=== PATIENT | male | born 1995 | race Hispanic/Latino ===

== ENCOUNTER 2019-09-02 12:41 | Emergency (ER) | payer BC ==
[2019-09-02] MEDS ORDERED: HYDROCODONE/APAP 7.5/325 MG TAB ONE (13:31)
--- NOTE | 2019-09-02 15:44 | RAD REPORT ---
EXAM DESCRIPTION: RAD - Ribs Right - 09/02/2019 1:56 pm CLINICAL HISTORY: PAIN COMPARISON: Chest Single View dated 06/24/2016 FINDINGS: No displaced rib fracture is seen. No aggressive rib lesion.
--- NOTE | 2019-09-02 16:28 | EDPHYS ---
Physician Documentation [facility] Name: Joaquin Bustos II Age: 23 yrs Sex: Male : 1995 Arrival Date: 09/02/2019 Time: 12:42 Bed 18 Private MD: ED Physician Matt Multani HPI: 09/02 16:29 This 23 yrs old Male presents to ER via Ambulatory with complaints of Fall ps1 Injury - rib pain. 16:29 patient states that he felt a pop in the right rib and then had an accident in which he ps1 fell and hit his ribs on the right hand side. Pain rated as severe. No obvious signs of injury. Worse with palpation and deep breathing. . Historical: - Allergies: 12:56 Cinnamon; aj1 - Home Meds: 12:56 risperidone oral oral [Active]; escitalopram oxalate oral oral [Active]; aj1 - PMHx: 12:56 Bipolar disorder; Schizophrenia; Anxiety; aj1 - Immunization history:: Flu vaccine is not up to date. - Social history:: Smoking status: Patient/guardian denies using tobacco. - Ebola Screening: : Patient denies travel to an Ebola-affected area in the 21 days before illness onset. ROS: 16:29 Constitutional: Negative for fever, chills, and weight loss, Eyes: Negative for injury, ps1 pain, redness, and discharge, Cardiovascular: Negative for chest pain, palpitations, and edema, Respiratory: Negative for shortness of breath, cough, wheezing, and pleuritic chest pain, Abdomen/GI: Negative for abdominal pain, nausea, vomiting, diarrhea, and constipation, Skin: Negative for injury, rash, and discoloration. 16:29 MS/extremity: Positive for pain, tenderness, of the right lateral anterior chest. Exam: 16:29 Constitutional: This is a well developed, well nourished patient who is awake, alert, ps1 and in no acute distress. Head/Face: Normocephalic, atraumatic. Eyes: Pupils equal round and reactive to light, extra-ocular motions intact. Lids and lashes normal. Conjunctiva and sclera are non-icteric and not injected. Cardiovascular: Regular rate and rhythm. No gallops, murmurs, or rubs. Normal PMI, no JVD. No pulse deficits. Respiratory: Lungs have equal breath sounds bilaterally, clear to auscultation and percussion. No rales, rhonchi or wheezes noted. No increased work of breathing, no retractions or nasal flaring. Abdomen/GI: Soft, non-tender, with normal bowel sounds. No distension or tympany. No guarding or rebound. No evidence of tenderness throughout. Skin: Warm, dry with normal turgor. Normal color with no rashes, no lesions, and no evidence of cellulitis. 16:29 Chest/axilla: Inspection: normal, Palpation: tenderness, that is moderate, of the right lateral anterior chest. Vital Signs: 12:56 BP 142 / 87; Pulse 85; Resp 18; Temp 98.0; Pulse Ox 97% on R/A; Height 5 ft. 11 in. aj1 (180.34 cm) (R); Pain 9/10; 14:30 BP 138 / 78; Pulse 79; Resp 15; Pulse Ox 98% on R/A; em 16:51 BP 148 / 84; Pulse 81; Resp 16; Pulse Ox 97% on R/A; em MDM: 13:26 Patient medically screened. ps1 16:39 Data reviewed: vital signs, nurses notes, radiologic studies. Counseling: I had a ps1 detailed discussion with the patient and/or guardian regarding: the historical points, exam findings, and any diagnostic results supporting the discharge/admit diagnosis, radiology results, the need for outpatient follow up, to return to the emergency department if symptoms worsen or persist or if there are any questions or concerns that arise at home. 09/02 13:27 Order name: Ribs Right XRAY; Complete Time: 16:26 ps1 Administered Medications: 13:32 Drug: [place] (7.5 mg-325 mg) 1 tabs Route: PO; em 14:30 Follow up: Response: No adverse reaction; Pain is unchanged, physician notified em Disposition: 09/02/19 16:27 Discharged to Home. Impression: Right rib pain. - Condition is Stable. - Discharge Instructions: Rib Contusion. - Prescriptions for Anaprox DS 550 mg Oral Tablet - take 1 tablet by ORAL route every 12 hours As needed; 20 tablet. Robaxin 500 mg Oral Tablet - take 2 tablet by ORAL route every 6 hours As needed; 40 tablet. Tylenol- Codeine #3 300-30 mg Oral Tablet - take 2 tablet by ORAL route every 6 hours As needed; 30 tablet. - Medication Reconciliation Form, Thank You Letter, Antibiotic Education, Prescription Opioid Use form. - Follow up: Private Physician; When: As needed; Reason: Further diagnostic work-up, Recheck today's complaints, Continuance of care, Re-evaluation by your physician. Follow up: Emergency Department; When: As needed; Reason: Fever > 102 F, Trouble breathing, Worsening of condition. - Problem is new. - Symptoms are unchanged. Signatures: Dispatcher [employer] Theresa Jacobo RN RN aj1 Jarod Bone, HEAD BANQUET WAITRESS HEAD BANQUET WAITRESS em Matt Multani MD MD ps1 Corrections: (The following items were deleted from the chart) 16:54 16:27 09/02/2019 16:27 Discharged to Home. Impression: Right rib pain. Condition is em Stable. Forms are Medication Reconciliation Form, Thank You Letter, Antibiotic Education, Prescription Opioid Use. Follow up: Private Physician; When: As needed; Reason: Further diagnostic work-up, Recheck today's complaints, Continuance of care, Re-evaluation by your physician. Follow up: Emergency Department; When: As needed; Reason: Fever > 102 F, Trouble breathing, Worsening of condition. Problem is new. Symptoms are unchanged. ps1
--- NOTE | 2019-09-02 16:28 | ER ---
Nurse's Notes [facility] Name: Joaquin Bustos II Age: 23 yrs Sex: Male : 1995 Arrival Date: 09/02/2019 Time: 12:42 Bed 18 Private MD: Diagnosis: Right rib pain Presentation: 09/02 12:52 Presenting complaint: Patient states: "I was doing my normal routines, and I reach for aj1 something and I heard a pop in my side, not normal, last night I was tossing and turning because I was in pain. I don't know what that pop was but it sure does hurt" Patient reports pain to right side. Transition of care: patient was not received from another setting of care. Onset of symptoms was August 2019. Risk Assessment: Do you want to hurt yourself or someone else? Patient reports no desire to harm self or others. Initial Sepsis Screen: Does the patient meet any 2 criteria? No. Patient's initial sepsis screen is negative. Does the patient have a suspected source of infection? No. Patient's initial sepsis screen is negative. Care prior to arrival: None. 12:52 Method Of Arrival: Ambulatory aj 12:52 Acuity: KHADAR 4 aj1 Triage Assessment: 12:56 General: Appears in no apparent distress. uncomfortable, Behavior is cooperative, aj1 anxious. Pain: Pain currently is 9 out of 10 on a pain scale. Neuro: Level of Consciousness is awake, alert, obeys commands. Cardiovascular: Patient's skin is warm and dry. Respiratory: Airway is patent Respiratory effort is even, unlabored, Respiratory pattern is regular, symmetrical. Historical: - Allergies: 12:56 Cinnamon; aj1 - Home Meds: 12:56 risperidone oral oral [Active]; escitalopram oxalate oral oral [Active]; aj1 - PMHx: 12:56 Bipolar disorder; Schizophrenia; Anxiety; aj1 - Immunization history:: Flu vaccine is not up to date. - Social history:: Smoking status: Patient/guardian denies using tobacco. - Ebola Screening: : Patient denies travel to an Ebola-affected area in the 21 days before illness onset. Screenin:09 Abuse screen: Denies threats or abuse. Nutritional screening: No deficits noted. em Tuberculosis screening: No symptoms or risk factors identified. Fall Risk None identified. Assessment: 13:21 General: Appears in no apparent distress. uncomfortable, Behavior is calm, cooperative, em Denies fever. Pain: Complains of pain in right lateral anterior chest Pain currently is 9 out of 10 on a pain scale. Pain began 1 day ago. Neuro: Level of Consciousness is awake, alert, obeys commands, Oriented to person, place, time, situation, Appropriate for age. Cardiovascular: Capillary refill < 3 seconds Patient's skin is warm and dry. Respiratory: Reports pain with movement pain with respiration Airway is patent Respiratory effort is even, unlabored, Respiratory pattern is regular, symmetrical, Breath sounds are clear bilaterally. Derm: Skin is intact, is healthy with good turgor, Skin is pink, warm \\T\\ dry. Musculoskeletal: Capillary refill < 3 seconds, Range of motion: intact in all extremities. 13:30 Reassessment: I agree with previous assessment. hb 14:30 Reassessment: Patient appears in no apparent distress at this time. Patient and/or em family updated on plan of care and expected duration. Pain level reassessed. Patient is alert, oriented x 3, equal unlabored respirations, skin warm/dry/pink. reports pain is unchanged, provider notified. 15:30 Reassessment: Patient appears in no apparent distress at this time. Patient and/or em family updated on plan of care and expected duration. Pain level reassessed. Patient is alert, oriented x 3, equal unlabored respirations, skin warm/dry/pink. pending x-ray results, reports pain is unchanged, provider notified. 16:50 Reassessment: Patient appears in no apparent distress at this time. Patient and/or em family updated on plan of care and expected duration. Pain level reassessed. Patient is alert, oriented x 3, equal unlabored respirations, skin warm/dry/pink. Vital Signs: 12:56 BP 142 / 87; Pulse 85; Resp 18; Temp 98.0; Pulse Ox 97% on R/A; Height 5 ft. 11 in. aj1 (180.34 cm) (R); Pain 9/10; 14:30 BP 138 / 78; Pulse 79; Resp 15; Pulse Ox 98% on R/A; em 16:51 BP 148 / 84; Pulse 81; Resp 16; Pulse Ox 97% on R/A; em ED Course: 12:42 Patient arrived in ED. as 12:54 Triage completed. aj1 12:56 Arm band placed on Patient placed in an exam room. aj1 12:58 Matt Multani MD is Attending Physician. ps1 13:05 Jarod Bone LVN is Primary Nurse. em 13:09 Patient has correct armband on for positive identification. Placed in gown. Bed in low em position. Call light in reach. Pulse ox on. NIBP on. 13:54 Ribs Right XRAY In Process Unspecified. EDMS 16:51 No provider procedures requiring assistance completed. Patient did not have IV access em during this emergency room visit. Administered Medications: 13:32 Drug: [place] (7.5 mg-325 mg) 1 tabs Route: PO; em 14:30 Follow up: Response: No adverse reaction; Pain is unchanged, physician notified em Outcome: 16:27 Discharge ordered by . ps1 16:51 Discharged to home ambulatory, with family. em 16:51 Condition: good 16:51 Discharge instructions given to patient, family, Instructed on discharge instructions, follow up and referral plans. no drinking with medication, no driving heavy equipment, medication usage, Demonstrated understanding of instructions, follow-up care, medications, Prescriptions given X 3. 16:54 Patient left the ED. em Signatures: Dispatcher [employer] Theresa Jacobo RN RN aj1 Jarod Bone LVN LVN em Mima Bhardwaj Heather, RN RN Matt Multani MD MD ps1
[2019-09-02 17:26] VITALS: BP 148/84; O2SAT 97
[2019-09-03 21:25] VITALS: TEMP 98
== END 2019-09-02 16:54 | disposition home or self-care (01) ==
LOC: ER 12:41
DX: R07.81 Pleurodynia (principal); Z91.018 Allergy to other foods; F41.9 Anxiety disorder, unspecified
CPT/HCPCS: 99284

== ENCOUNTER 2020-03-10 06:09 | Emergency (ER) | payer BC ==
[2020-03-10] MEDS ORDERED: KETOROLAC 30 MG/ML INJ ONE (06:42)
[2020-03-10] MEDS ORDERED: NA CHLORIDE 0.9% 1,000 ML ONE (06:42)
[2020-03-10] MEDS ORDERED: DIPHENHYDRAMINE 50 MG/ML VIAL ONE (06:42)
[2020-03-10] MEDS ORDERED: PROMETHAZINE INJ 25 MG/ML AMP ONE (06:42)
[2020-03-10 07:16] LABS: Absolute Lymphocytes (CBC) 2.4 K/uL (0.7-4.9); Basophils % 1.1 % (0-1.3); Hematocrit 42.6 % (39.6-49.0); Lymphocytes % 28.7 % (15.3-44.8); MPV 9.6 fL (7.6-11.3); RBC Red Blood Cell Count 4.99 M/uL (4.33-5.43)
[2020-03-10 07:24] LABS: BUN Blood Urea Nitrogen 11 mg/dL (7-18); Bicarbonate 26 mmol/L (21-32); Glucose Level 110 mg/dL (74-106); Potassium 3.9 mmol/L (3.5-5.1); Sodium Level 140 mmol/L (136-145)
--- NOTE | 2020-03-10 12:37 | ER ---
Nurse's Notes [facility] Name: Joaquin Bustos II Age: 24 yrs Sex: Male : 1995 Arrival Date: 03/10/2020 Time: 06:12 Bed 5 Private MD: Diagnosis: Headache;Nausea and vomiting Presentation: 03/10 06:21 Chief complaint: Patient states: HEADACHE LIKE PRESSURE STARTED YESTERDAY. 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 10/10 PAIN SCALE. I HAVE BEEN VOMITING ALL NIGHT. I AM SENSITIVE TO NOISE. 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 ALSO I HAVE BEEN HAVING CHEST PAIN FOR THE PAST WEEK. POINTING TO HIS LEFT ANT CHEST WALL, DESCRIBED SHARP, NON RADIATING, 9/10 PAIN SCALE. Coronavirus screen: Proceed with normal triage. Ebola Screen: No symptoms or risks identified at this time. Initial Sepsis Screen: Does the patient meet any 2 criteria? No. Patient's initial sepsis screen is negative. Does the patient have a suspected source of infection? No. Patient's initial sepsis screen is negative. Risk Assessment: Do you want to hurt yourself or someone else? Patient reports no desire to harm self or others. Onset of symptoms was March 09, 2020 at 13:00. 06:21 Method Of Arrival: Ambulatory rv 06:21 Acuity: KHADAR 3 rv Triage Assessment: 06:25 General: Appears uncomfortable, Behavior is calm, cooperative. Pain: Complains of pain rv in HEAD Pain does not radiate. Pain currently is 10 out of 10 on a pain scale. Quality of pain is described as pressure, Pain began 1 day ago. Pain: Complains of pain in anterior aspect of left upper chest Pain does not radiate. Pain currently is 9 out of 10 on a pain scale. Quality of pain is described as sharp, Pain began ONE WEEK AGO. EENT: No signs and/or symptoms were reported regarding the EENT system. Neuro: Level of Consciousness is awake, alert, obeys commands, Oriented to person, place, time, situation, Moves all extremities. Full function Speech is normal, Facial symmetry appears normal, Reports headache that is the "worst ever", since YESTERDAY. Cardiovascular: Patient's skin is warm and dry. Respiratory: Airway is patent Respiratory effort is even, unlabored, Respiratory pattern is regular, Breath sounds are clear bilaterally. GI: Reports nausea, vomiting, since LAST NIGHT. Derm: Skin is healthy with good turgor. Historical: - Allergies: 06:25 Cinnamon; rv - PMHx: 06:25 Anxiety; Bipolar disorder; Schizophrenia; rv - PSHx: 06:25 Cholecystectomy; rv - Immunization history:: Adult Immunizations up to date. - Social history:: Smoking status: Patient denies any tobacco usage or history of. Screenin:23 Abuse screen: Denies threats or abuse. Nutritional screening: No deficits noted. jb4 Tuberculosis screening: No symptoms or risk factors identified. Fall Risk None identified. Assessment: 06:23 General: Appears in no apparent distress. uncomfortable, Behavior is calm, cooperative, jb4 appropriate for age. Pain: Complains of pain in anterior aspect of left upper chest, Headache Pain does not radiate. Pain currently is 10 out of 10 on a pain scale. Quality of pain is described as Headache is describe as a pressure pain. Chest pain is stabbing Pain began Chest pain started 1 week ago, headache started yesterday. Is continuous. Neuro: Level of Consciousness is awake, alert, obeys commands, Oriented to person, place, time, situation. Cardiovascular: Patient's skin is warm and dry. Respiratory: Airway is patent Respiratory effort is even, unlabored, Respiratory pattern is regular, symmetrical, Breath sounds are clear bilaterally. GI: Abdomen is non-distended, obese, Bowel sounds present X 4 quads. Abd is soft and non tender X 4 quads. Reports nausea, vomiting, since 0030. : No signs and/or symptoms were reported regarding the genitourinary system. EENT: No signs and/or symptoms were reported regarding the EENT system. Derm: Skin is intact, Skin is pink, warm \\T\\ dry. Musculoskeletal: Circulation, motion, and sensation intact. Range of motion: intact in all extremities. 07:00 Reassessment: RECD REPORT FROM OBDULIA DIAZ. 24YO HM P/W MIGRAINE PATTERN ZHAO. ALL CURRENT bp ORDERS COMPLETE, RESULTS PENDING. 08:23 Reassessment: PT SLEEPING, S/S RELIEVED. bp 10:44 Reassessment: PT SOMNOLENT, STATES NO AVAILABLE RIDE HOME. PROVIDER AWARE. bp 11:59 Reassessment: PT SLEEPING. S/S RELIEVED. bp 12:36 Reassessment: PT D/C HOME AMBULATORY, DX WITH HEADACHE, NAUSEA AND VOMITING. bp Vital Signs: 06:21 BP 136 / 89; Pulse 95; Resp 18; Temp 97.4; Pulse Ox 99% on R/A; Weight 117.03 kg; rv Height 5 ft. 11 in. (180.34 cm); Pain 10/10; 07:15 BP 134 / 91; Pulse 87; Resp 16; Pulse Ox 100% ; bp 08:23 BP 125 / 77; Pulse 75; Resp 16; Pulse Ox 96% ; bp 09:49 BP 113 / 73; Pulse 67; Resp 17; Pulse Ox 96% ; jl7 10:44 BP 112 / 72; Pulse 67; Resp 15; Pulse Ox 96% ; bp 11:59 BP 110 / 68; Pulse 61; Resp 16; Pulse Ox 97% ; bp 12:36 BP 132 / 57; Pulse 65; Resp 16; Temp 97.5; Pulse Ox 97% ; bp 06:21 Body Mass Index 35.98 (117.03 kg, 180.34 cm) rv ED Course: 06:12 Patient arrived in ED. cl3 06:16 Roberto Valiente, RN is Primary Nurse. jb4 06:23 Patient has correct armband on for positive identification. Bed in low position. Call jb4 light in reach. Side rails up X 1. Pulse ox on. NIBP on. 06:25 Triage completed. rv 06:27 Patient placed in the treatment room, on a stretcher, Patient notified of wait time. rv 06:28 Peyton Sherwood FNP-C is [facility]. snw 06:28 Srinivasa Hidalgo MD is Attending Physician. snw 07:05 Inserted saline lock: 20 gauge in right hand, using aseptic technique. bp 12:37 No provider procedures requiring assistance completed. IV discontinued, intact, bp bleeding controlled, No redness/swelling at site. Pressure dressing applied. Administered Medications: 07:05 Drug: NS 0.9% 1000 ml Route: IV; Rate: 1 bolus; Site: right hand; bp 12:38 Follow up: IV Status: Completed infusion; IV Intake: 1000ml bp 07:05 Drug: Phenergan 12.5 mg Route: IVP; Site: right hand; bp 12:38 Follow up: Response: Marked relief of symptoms bp 07:05 Drug: TORadol 30 mg Route: IVP; Site: right hand; bp 12:38 Follow up: Response: Marked relief of symptoms bp 07:05 Drug: Benadryl 12.5 mg Route: IVP; Site: right hand; bp 12:37 Follow up: Response: Marked relief of symptoms bp Intake: 12:38 IV: 1000ml; Total: 1000ml. bp Outcome: 12:35 Discharge ordered by . snw 12:37 Discharged to home ambulatory. bp 12:37 Condition: stable 12:37 Discharge instructions given to patient, Instructed on discharge instructions, follow up and referral plans. medication usage, Demonstrated understanding of instructions, follow-up care, medications, Prescriptions given X 2. 12:42 Patient left the ED. bp Signatures: Peyton Sherwood, SALES PERFORMANCE ANALYST-C SALES PERFORMANCE ANALYST-Csnw Roberto Valiente RN RN jb4 Shazia Delgado RN EMILY jl7 Yohan Monroy RN EMILY bp Ridge Herrera RN RN rv Kuldip Phelan cl3 Corrections: (The following items were deleted from the chart) 06:29 06:23 GI: Abdomen is non-distended, obese, Bowel sounds present X 4 quads. Abd is soft jb4 and non tender X 4 quads. jb4 12:42 12:37 Discharge instructions given to patient, Instructed on discharge instructions, bp follow up and referral plans. Demonstrated understanding of instructions, follow-up care, bp
--- NOTE | 2020-03-10 12:37 | EDPHYS ---
Physician Documentation [facility] Name: Joaquin Bustos II Age: 24 yrs Sex: Male : 1995 Arrival Date: 03/10/2020 Time: 06:12 Bed 5 Private MD: ED Physician Srinivasa Hidalgo HPI: 03/10 06:38 This 24 yrs old Male presents to ER via Ambulatory with complaints of snw Nausea/Vomiting, Headache. 06:38 The patient presents to the emergency department with nausea, vomiting. Onset: The snw symptoms/episode began/occurred gradually. Possible causes: unknown. The symptoms are aggravated by movement. Associated signs and symptoms: Pertinent negatives: abdominal pain, fever. Severity of symptoms: At their worst the symptoms were moderate in the emergency department the symptoms are unchanged. The patient has not experienced similar symptoms in the past. It is unknown whether or not the patient has recently seen a physician. pt states reproducible left chest pain. Historical: - Allergies: 06:25 Cinnamon; rv - PMHx: 06:25 Anxiety; Bipolar disorder; Schizophrenia; rv - PSHx: 06:25 Cholecystectomy; rv - Immunization history:: Adult Immunizations up to date. - Social history:: Smoking status: Patient denies any tobacco usage or history of. ROS: 06:34 Constitutional: Negative for fever, chills, and weight loss. snw 06:34 ENT: Negative for injury, pain, and discharge, Neck: Negative for injury, pain, and swelling. 06:34 Respiratory: Negative for shortness of breath, cough, wheezing, and pleuritic chest pain, Back: Negative for injury and pain. 06:34 : Negative for injury, bleeding, discharge, and swelling, MS/Extremity: Negative for injury and deformity, Skin: Negative for injury, rash, and discoloration. 06:34 Eyes: Positive for photophobia. 06:34 Cardiovascular: Positive for chest pain, of the anterior aspect of left upper chest, worse with pressure, reproducible. 06:34 Abdomen/GI: Positive for nausea and vomiting. 06:34 Neuro: Positive for headache, of the frontal, band like. 06:34 Psych: Positive for psychiatrist has requested pt get an EKG. Exam: 06:34 Constitutional: This is a well developed, well nourished patient who is awake, alert, snw and in no acute distress. Head/Face: Normocephalic, atraumatic. Eyes: Pupils equal round and reactive to light, extra-ocular motions intact. Lids and lashes normal. Conjunctiva and sclera are non-icteric and not injected. Cornea within normal limits. Periorbital areas with no swelling, redness, or edema. ENT: Nares patent. No nasal discharge, no septal abnormalities noted. Tympanic membranes are normal and external auditory canals are clear. Oropharynx with no redness, swelling, or masses, exudates, or evidence of obstruction, uvula midline. Mucous membranes moist. Neck: Trachea midline, no thyromegaly or masses palpated, and no cervical lymphadenopathy. Supple, full range of motion without nuchal rigidity, or vertebral point tenderness. No Meningismus. Chest/axilla: Normal chest wall appearance and motion. Nontender with no deformity. No lesions are appreciated. Cardiovascular: Regular rate and rhythm with a normal S1 and S2. No gallops, murmurs, or rubs. Normal PMI, no JVD. No pulse deficits. Respiratory: Lungs have equal breath sounds bilaterally, clear to auscultation and percussion. No rales, rhonchi or wheezes noted. No increased work of breathing, no retractions or nasal flaring. Abdomen/GI: Soft, non-tender, with normal bowel sounds. No distension or tympany. No guarding or rebound. No evidence of tenderness throughout. Back: No spinal tenderness. No costovertebral tenderness. Full range of motion. Skin: Warm, dry with normal turgor. Normal color with no rashes, no lesions, and no evidence of cellulitis. MS/ Extremity: Pulses equal, no cyanosis. Neurovascular intact. Full, normal range of motion. Neuro: Awake and alert, GCS 15, oriented to person, place, time, and situation. Cranial nerves II-XII grossly intact. Motor strength 5/5 in all extremities. Sensory grossly intact. Cerebellar exam normal. Normal gait. 06:34 Psych: Behavior/mood is cooperative, depressed, Oriented to person, place, time. Vital Signs: 06:21 BP 136 / 89; Pulse 95; Resp 18; Temp 97.4; Pulse Ox 99% on R/A; Weight 117.03 kg; rv Height 5 ft. 11 in. (180.34 cm); Pain 10/10; 07:15 BP 134 / 91; Pulse 87; Resp 16; Pulse Ox 100% ; bp 08:23 BP 125 / 77; Pulse 75; Resp 16; Pulse Ox 96% ; bp 09:49 BP 113 / 73; Pulse 67; Resp 17; Pulse Ox 96% ; jl7 10:44 BP 112 / 72; Pulse 67; Resp 15; Pulse Ox 96% ; bp 11:59 BP 110 / 68; Pulse 61; Resp 16; Pulse Ox 97% ; bp 12:36 BP 132 / 57; Pulse 65; Resp 16; Temp 97.5; Pulse Ox 97% ; bp 06:21 Body Mass Index 35.98 (117.03 kg, 180.34 cm) rv MDM: 06:48 Patient medically screened. snw 07:33 Data reviewed: vital signs, nurses notes. Data interpreted: Pulse oximetry: on room air snw is 100 %. Interpretation: normal. Counseling: I had a detailed discussion with the patient and/or guardian regarding: the historical points, exam findings, and any diagnostic results supporting the discharge/admit diagnosis. Response to treatment: the patient's symptoms have markedly improved after treatment, pt sedate, no complaints of pain. Awaiting: completion of bolus. 10:38 Awaiting: no one able to pick pt up, he is sedated and sleeping in no distress. Will snw await discharge until safe to do so. 06 06:30 Order name: CBC with Diff; Complete Time: 07:34 snw 06 06:30 Order name: Chem 7; Complete Time: 07:28 snw 03/10 06:33 Order name: EKG; Complete Time: 06:34 snw 08 06:33 Order name: EKG - Nurse/Tech; Complete Time: 06:58 snw EC:56 Rate is 73 beats/min. Rhythm is regular. QRS [place] is Normal. MI interval is normal. QRS snw interval is normal. QT interval is normal. No Q waves. T waves are Normal. Clinical impression: Normal ECG. Administered Medications: 07:05 Drug: NS 0.9% 1000 ml Route: IV; Rate: 1 bolus; Site: right hand; bp 12:38 Follow up: IV Status: Completed infusion; IV Intake: 1000ml bp 07:05 Drug: Phenergan 12.5 mg Route: IVP; Site: right hand; bp 12:38 Follow up: Response: Marked relief of symptoms bp 07:05 Drug: TORadol 30 mg Route: IVP; Site: right hand; bp 12:38 Follow up: Response: Marked relief of symptoms bp 07:05 Drug: Benadryl 12.5 mg Route: IVP; Site: right hand; bp 12:37 Follow up: Response: Marked relief of symptoms bp Disposition: 03/11 02:10 Co-signature as Attending Physician, Srinivasa Hidalgo MD. [email or web address] Disposition: 03/10/20 12:35 Discharged to Home. Impression: Headache, Nausea and vomiting. - Condition is Stable. - Discharge Instructions: General Headache Without Cause, Migraine Headache, Nausea and Vomiting, Adult, Rehydration, Adult. - Prescriptions for orphenadrine citrate 100 mg Oral Tablet Sustained Release - take 1 tablet by ORAL route 2 times per day As needed; 20 tablet. promethazine 25 mg Oral Tablet - take 1 tablet by ORAL route every 6 hours As needed; 20 tablet. - Work release form, Medication Reconciliation Form, Thank You Letter, Antibiotic Education, Prescription Opioid Use form. - Follow up: Emergency Department; When: As needed; Reason: Worsening of condition. Follow up: Private Physician; When: 2 - 3 days; Reason: Recheck today's complaints, Continuance of care, Re-evaluation by your physician. Signatures: Dispatcher [employer] EDNE Peyton Sherwood, MARYELLEN-C INSTITUTIONAL ASSET MANAGER-Csnw Yohan Monroy RN RN bp Vicente, Ronaldo RN Srinivasa Chatterjee MD MD [email or web address] Corrections: (The following items were deleted from the chart) 03/10 12:42 12:35 03/10/2020 12:35 Discharged to Home. Impression: Headache; Nausea and vomiting. bp Condition is Stable. Forms are Medication Reconciliation Form, Thank You Letter, Antibiotic Education, Prescription Opioid Use. Follow up: Emergency Department; When: As needed; Reason: Worsening of condition. Follow up: Private Physician; When: 2 - 3 days; Reason: Recheck today's complaints, Continuance of care, Re-evaluation by your physician. snw
[2020-03-10 13:09] VITALS: O2SAT 97
[2020-03-10 13:10] VITALS: BP 132/57; TEMP 97.5
--- NOTE | 2020-03-11 11:47 | EKG ---
Test Date: 2020-03-10 Test Time: 06:51:39 Manager Agricultural: AMEE MEASUREMENT RESULTS: Intervals: Rate: 73 KS: 158 QRSD: 86 QT: 366 QTc: 403 [place]: P: 30 KS: 158 QRS: 33 T: 36 INTERPRETIVE STATEMENTS: Normal sinus rhythm Normal ECG Compared to ECG 07/22/2000 07:54:00 No significant changes Electronically Signed On 03-11-20 11:43:25 CDT by Baltazar Garces
== END 2020-03-10 12:42 | disposition home or self-care (01) ==
LOC: ER 06:09
DX: R51 Headache (principal); Z91.018 Allergy to other foods
CPT/HCPCS: 96361; 93005; 85025; 80048; 36415; 96375; 96374; 99284; J2550; J1200; J7030

== ENCOUNTER 2020-10-25 12:24 | Emergency (ER) | payer SELFPAY ==
--- OUTSIDE RECORDS SUMMARY | 2020-10-25 12:25 | XMS REPORT | Continuity of Care Document ---
:1995 Author Organization [facility] t Address [address] [place] [address] [address]. [address] [place] [address] Care Team Providers Name Role Phone Jett Wright DO Attending Clinician Problems This patient has no known problems. Allergies, Adverse Reactions, Alerts This patient has no known allergies or adverse reactions. Medications This patient has no known medications. Procedures This patient has no known procedures. Encounters Start End Encounter Admission Attending Care Care Encounter Source Date/Time Date/Time Type Type Clinicians Facility Department ID 2020-08-13 2020-08-13 Emergency Kyle [facility] [id number] 20:42:00 21:06:00 Aminta Page [id number] [place] [id number] [place] [id number] Results This patient has no known results.
--- OUTSIDE RECORDS SUMMARY | 2020-10-25 12:26 | XMS REPORT | Summary of Care ---
:1995 Author Organization [facility] Address [address] [place] [address] Care Team Providers Name Role Phone Pcp, Does Not Have A Primary Care Provider Reason for Visit Reason Comments Other exposed to mono infection Auth/Cert Status Reason Specialty Diagnoses / Referred By Referred To Procedures Contact Contact Emergency Medicine Ad[facility] Em ergency Dept [address] [place] [address] Fax: Encounter Details Date Type Department Care Team Description 08/13/2020 Emergency ADC-Emergency Aminta Wright, [place] ex posure (Primary Department DO Dx) [address] [place] [address] [place] [address] [phone] Allergies Active Allergy Reactions Severity Noted Date Comments Cinnamon Anaphylaxis 08/13/2020 documented as of this encounter (statuses as of 08/13/2020) Medications No known medicationsdocumented as of this encounter (statuses as of 08/13/2020) Active Problems No known active problemsdocumented as of this encounter (statuses as of 08/13/2020) Social History Tobacco Use Types Packs/Day Years Used Date Never Assessed Sex Assigned at Date Recorded Not on file COVID-19 Exposure Response Date Recorded In the last month, have you been in contact with No / Unsure 08/13/2020 8:31 PM [employer] someone who was confirmed or suspected to have Coronavirus / COVID-19? documented as of this encounter Last Filed Vital Signs Vital Sign Reading Time Taken Comments Blood Pressure 152/94 08/13/2020 8:34 PM [employer] Pulse 99 08/13/2020 8:34 PM [employer] Temperature 37.4 C (99.3 F) 08/13/2020 8:34 PM [employer] Respiratory Rate 18 08/13/2020 8:34 PM [employer] Oxygen Saturation 99% 08/13/2020 8:34 PM [employer] Inhaled Oxygen Concentration - - Weight 117 kg (258 lb) 08/13/2020 8:34 PM [employer] Height 180.3 cm (5' 11") 08/13/2020 8:34 PM [employer] Body Mass Index 35.98 08/13/2020 8:34 PM [employer] documented in this encounter Discharge Instructions Aminta Wilhelm DO - 08/13/2020DIAGNOSIS 1. [place] exposure NO LIFE-THREATENING FINDINGS ON TODAY'S EXAM. PROCEDURES IN THE ER TODAY: [place] blood test MEDICATIONS ADMINISTERED IN THE ER TODAY: None YOUR PRESCRIPTIONS AND [id number] MEDICATION RECOMMENDATIONS: None SPECIAL CARE INSTRUCTIONS: None FOLLOW-UP RECOMMENDATIONS: RECOMMEND FOLLOW-UP WITH A PRIMARY CARE PROVIDER OR SPECIALIST IN 2-5 DAYS, ESPECIALLY IF NO IMPROVEMENT IN SYMPTOMS. TO FOLLOW-UP WITHIN THE [facility], TRY THESE OPTIONS (CLINIC APPOINTMENTS AVAILABLE ON [id number] BASIS): 1. SCHEDULE AN APPOINTMENT ONLINE AT [facility] 2. OR CALL THE [facility] AT OR 3. OR CALL YOUR [facility] PHYSICIAN'S OFFICE DIRECTLY IF YOU ARE ALREADY AN ESTABLISHED [facility] PATIENT. OR, YOU MAY FOLLOW-UP WITH A PROVIDER OF YOUR CHOICE, SUCH : 1. A PHYSICIAN OF YOUR CHOICE 2. [facility], . LOCATIONS IN [facility] 3. [facility], [address], [place]; [phone] RETURN TO ER FOR WORSENING OF SYMPTOMS. AttachmentsThe following attachments cannot be sent through Care Everywhere. Mononucleosis (Italian)documented in this encounter ED Notes Nery Lee RN - 08/13/2020 8:31 PM CSTCC: Patient states ex girlfriend tested positive for mono and he wants to get tested. He was exposed on Tuesday she tested positive today PMHx: Asthma, bipolar, anxiety and depression and shizopernia PSH: gallbladder MEDS: respriadol, seroquel, LMP: NA Tetanus: UTD Awake, alert, oriented, resp reg unlabored, skin warm, color appropriate for race, moves all ext without difficulty, amb with out Appears in no distress [employer] Aminta Wright, - 08/13/2020 8:26 PM CST [facility] Emergency Department Note Patient Name: Joaquin Bustos II Date of : 1995 24 year old male Treatment Room: Room/bed info not found Primary Care Physician: No primary care provider on file. Patient Escorted by: Self [9] Mode of Arrival: Personal means [1] EMS Treatment Prior to ED Arrival: SCRAP PREPARER treatment: None Travel and Exposure Screening: Symptoms Does patient have any of these symptoms?: (not recorded) Exposure Screening Has patient had contact with someone with a communicable disease in the last month?: (not recorded) Diseases exposed to:: (not recorded) Is Patient ?: (not recorded) Exposure Date: (not recorded) Chief Complaint: Chief Complaint Patient presents with Other exposed to mono infection History of Present Illness: Patient presents for eval for concern about mono. States a girl he has sexual relations with found out today that she has mono. He was last with her Tuesday - Tuesday, today is Tuesday. He denies complaints. No fevers. No cough. No sore throat. No abd pain. Has h/o asthma well controlled. Here for eval. Past Medical History/Immunizations: History reviewed. No pertinent past medical history. Tetanus received in last 5 years: Yes Allergies: Allergies Allergen Reactions Cinnamon Anaphylaxis Past Social History: Substance & Sexual Activity No substance use or sexual activity history on file. Past Surgical History: History reviewed. No pertinent surgical history. Review of Systems: Review of Systems Constitutional: Negative for chills and fever. Respiratory: Negative for shortness of breath. Cardiovascular: Negative for chest pain. Gastrointestinal: Negative for abdominal pain, nausea and vomiting. Genitourinary: Negative for dysuria. Musculoskeletal: Negative for arthralgias, neck pain and neck stiffness. Neurological: Negative for dizziness. Psychiatric/Behavioral: Negative for agitation. Physical Exam: ED Triage Vitals Weight 08/13/201999 77.6 kg (171 lb) Actual or estimated 08/13/202033 Estimated by patient/family report Height 08/13/202033 1.803 m (5' 11") BP 08/13/202033 (!) 152/94 Pulse 08/13/202033 99 Resp 08/13/202033 18 Temp 08/13/202033 37.4 C (99.3 F) Temp source 08/13/202033 Oral SpO2 08/13/202033 99 % Measured on 08/13/202033 Room air Physical Exam Vitals signs and nursing note reviewed. Constitutional: Appearance: Normal appearance. He is obese. HENT: Head: Normocephalic and atraumatic. Right Ear: Tympanic membrane normal. Left Ear: Tympanic membrane normal. Mouth/Throat: Mouth: Mucous membranes are moist. Pharynx: No oropharyngeal exudate or posterior oropharyngeal erythema. Neck: Musculoskeletal: Neck supple. Cardiovascular: Rate and Rhythm: Normal rate. Pulses: Normal pulses. Pulmonary: Effort: Pulmonary effort is normal. No respiratory distress. Musculoskeletal: Normal range of motion. Skin: General: Skin is warm and dry. Neurological: General: No focal deficit present. Mental Status: He is alert. Radiology: No results found for this visit on 08/13/20. Lab Results (24h): No results found for this or any previous visit (from the past 24 hour(s)). Orders and Treatments: Orders Placed This Encounter Procedures EBV-MONONUCLEOSIS SCREEN No orders of the defined types were placed in this encounter. ED COURSE patient presents for eval for exposure to mono. Denies complaints. VSS here in the EC. Patient obese. Will send mono test. Ok for discharge home with PCP f/u. MDM: Coding Scoring Tools: No data recorded Diagnosis/Impression: ICD-10-CM ICD-9-CM 1. [place] exposure Z20.828 V01.79 Disposition/Condition: ED Disposition ED Disposition Condition Comment Disch - Home Stable Discharge Medications: Patient's Medications No medications on file Follow-up: Electronically signed by: Aminta Wright DO 08/13/2020 8:40 PM [employer] documented in this encounter Miscellaneous Notes ED Nurse Note - Nery Lee RN - 08/13/2020 8:43 PM CSTPt given printed and verbal discharge instructions regarding exposure to mononucleosis encouraged hydration, Prescriptions provided none Discussed ibuprofen and to take with food to avoid GI distress. No adverse reaction to meds given in ER noted upon discharge Awake, alert oriented, resp reg unlabored, skin w/d, pt leaving amb with steady gait, in no apparent distress, [employer] documented in this encounter Plan of Treatment Name Type Priority Associated Diagnoses Date/Ti me EBV-MONONUCLEOSIS SCREEN LAB STAT [place] exposure 8:40 PM [employer] Name Type Priority Associated Diagnoses Order S chedule EBV-MONONUCLEOSIS LAB Routine [place] exposure ONCE for 1 Occurrences SCREEN starting 2019 until 08/13/2020 Health Maintenance Due Date Last Done Comments VARICELLA VACCINES (1 of 2 - 1994 2-dose childhood series) HPV VACCINES (1 - Male 2-dose 2004 series) Depression Screening 2005 DTaP,Tdap,and Td Vaccines (1 - 2012 Tdap) INFLUENZA VACCINE (#1) 2020 PNEUMOCOCCAL 0-64 YEARS COMBINED Aged Out No longer eligible based on SERIES patient's age to complete this topic documented as of this encounter Procedures Procedure Name Priority Date/Time Associated Diagnosis Comme nts NOTICE OF PRIVACY Routine 08/13/2020 8:30 PM [employer] PRACTICES CONSENT/REFUSAL FOR Routine 08/13/2020 8:29 PM [employer] DIAGNOSIS AND TREATMENT documented in this encounter Results Not on filedocumented in this encounter Visit Diagnoses Diagnosis [place] exposure - Primary Contact with or exposure to other viral diseases documented in this encounter
--- NOTE | 2020-10-25 12:58 | EDPHYS ---
Physician Documentation [facility] Name: Joaquin Bustos II Age: 24 yrs Sex: Male : 1995 Arrival Date: 10/25/2020 Time: 12:27 Bed 19 Private MD: ED Physician Aleksandar Robb HPI: 10/25 13:28 This 24 yrs old Male presents to ER via Ambulatory with complaints of Ear Pain.kb 13:28 The patient presents with a foreign body sensation, a fullness. The complaints affect kb the right ear and left ear. Onset: The symptoms/episode began/occurred yesterday. Modifying factors: The symptoms are alleviated by nothing, the symptoms are aggravated by nothing. Associated signs and symptoms: The patient has no apparent associated signs or symptoms. Severity of symptoms: At their worst the symptoms were moderate in the emergency department the symptoms are unchanged. The patient has not experienced similar symptoms in the past. The patient has not recently seen a physician. Pt reports fullness in left ear and feels like there is something in right ear. States symptoms started upon waking yesterday morning. Historical: - Allergies: 12:39 Cinnamon; jd3 - Home Meds: 12:39 None [Active]; jd3 - PMHx: 12:39 Anxiety; Bipolar disorder; Schizophrenia; jd3 - PSHx: 12:39 Cholecystectomy; Tonsillectomy; jd3 - Immunization history:: Adult Immunizations up to date. - Social history:: Smoking status: Patient denies any tobacco usage or history of. ROS: 13:27 Constitutional: Negative for fever, chills, and weight loss, Cardiovascular: Negative kb for chest pain, palpitations, and edema, Respiratory: Negative for shortness of breath, cough, wheezing, and pleuritic chest pain, Abdomen/GI: Negative for abdominal pain, nausea, vomiting, diarrhea, and constipation, MS/Extremity: Negative for injury and deformity, Skin: Negative for injury, rash, and discoloration, Neuro: Negative for headache, weakness, numbness, tingling, and seizure. 13:27 ENT: Positive for ear pain, foreign body sensation. Exam: 13:27 Constitutional: This is a well developed, well nourished patient who is awake, alert, kb and in no acute distress. Head/Face: Normocephalic, atraumatic. Chest/axilla: Normal chest wall appearance and motion. Nontender with no deformity. No lesions are appreciated. Cardiovascular: Regular rate and rhythm with a normal S1 and S2. No gallops, murmurs, or rubs. Normal PMI, no JVD. No pulse deficits. Respiratory: Lungs have equal breath sounds bilaterally, clear to auscultation and percussion. No rales, rhonchi or wheezes noted. No increased work of breathing, no retractions or nasal flaring. Abdomen/GI: Soft, non-tender, with normal bowel sounds. No distension or tympany. No guarding or rebound. No evidence of tenderness throughout. Skin: Warm, dry with normal turgor. Normal color with no rashes, no lesions, and no evidence of cellulitis. MS/ Extremity: Pulses equal, no cyanosis. Neurovascular intact. Full, normal range of motion. Neuro: Awake and alert, GCS 15, oriented to person, place, time, and situation. Cranial nerves II-XII grossly intact. Motor strength 5/5 in all extremities. Sensory grossly intact. Cerebellar exam normal. Normal gait. 13:27 ENT: External ear(s): are unremarkable, Ear canal(s): erythema, that is moderate, of the right canal, swelling, that is moderate, of the right canal, TM's: bulging, bilaterally, dullness, bilaterally. Vital Signs: 12:39 BP 139 / 88; Pulse 81; Resp 17 S; Temp 97.8(TE); Pulse Ox 97% on R/A; Weight 117.03 kg jd3 (R); Height 5 ft. 11 in. (180.34 cm) (R); Pain 9/10; 12:39 Body Mass Index 35.98 (117.03 kg, 180.34 cm) jd3 MDM: 12:44 Patient medically screened. kb 13:26 Data reviewed: vital signs, nurses notes. Data interpreted: Pulse oximetry: on room air kb is 97 %. Interpretation: normal. Counseling: I had a detailed discussion with the patient and/or guardian regarding: the historical points, exam findings, and any diagnostic results supporting the discharge/admit diagnosis, the need for outpatient follow up, an ENT specialist, to return to the emergency department if symptoms worsen or persist or if there are any questions or concerns that arise at home. Administered Medications: No medications were administered Disposition: 13:34 Co-signature as Attending Physician, Aleksandar Robb MD. rn Disposition: 10/25/20 12:57 Discharged to Home. Impression: Otitis media, unspecified, bilateral, Unspecified otitis externa, right ear. - Condition is Stable. - Discharge Instructions: Otitis Externa, Gbfb-bm-Size, Otitis Media, Adult, Lyot-ws-Tmwu, Ear Drops, Adult, Mfte-vu-Goin. - Prescriptions for Cortisporin 3.5- 10,000-1 mg/mL-unit/mL-% Otic solution - instill 4 drop by OTIC route 3 times per day for 10 days; 1 bottle. Amoxicillin 875 mg Oral Tablet - take 1 tablet by ORAL route every 12 hours for 10 days; 20 tablet. - Medication Reconciliation Form, Thank You Letter, Antibiotic Education, Prescription Opioid Use form. - Follow up: Emergency Department; When: As needed; Reason: Worsening of condition. Follow up: Private Physician; When: 2 - 3 days; Reason: Recheck today's complaints, Continuance of care, Re-evaluation by your physician. Signatures: Tequila Cornelius, ELECTRICAL INSTALLATION SUPERVISOR-C ELECTRICAL INSTALLATION SUPERVISOR-Ckb Aleksandar Robb MD MD rn Davies, Jonathon, RN RN jGoldie Jaimes RN RN rb3 Corrections: (The following items were deleted from the chart) 13:13 12:57 10/25/2020 12:57 Discharged to Home. Impression: Otitis media, unspecified, rb3 bilateral; Unspecified otitis externa, right ear. Condition is Stable. Forms are Medication Reconciliation Form, Thank You Letter, Antibiotic Education, Prescription Opioid Use. Follow up: Emergency Department; When: As needed; Reason: Worsening of condition. Follow up: Private Physician; When: 2 - 3 days; Reason: Recheck today's complaints, Continuance of care, Re-evaluation by your physician. kb 13:28 13:27 ENT: External ear(s): are unremarkable, Ear canal(s): erythema, that is moderate, kb of the left canal, swelling, that is moderate, of the left canal, TM's: bulging, bilaterally, dullness, bilaterally, kb
--- NOTE | 2020-10-25 12:58 | ER ---
Nurse's Notes [facility] Name: Joaquin Bustos II Age: 24 yrs Sex: Male : 1995 Arrival Date: 10/25/2020 Time: 12:27 Bed 19 Private MD: Diagnosis: Otitis media, unspecified, bilateral;Unspecified otitis externa, right ear Presentation: 10/25 12:37 Chief complaint: Patient states: "I have pressure in my left ear and it is hurting. I jd3 also feel like I have something in my right ear. it started yesterday.". Coronavirus screen: At this time, the client does not indicate any symptoms associated with coronavirus-19. Ebola Screen: Patient negative for fever greater than or equal to 101.5 degrees Fahrenheit, and additional compatible Ebola Virus Disease symptoms. Initial Sepsis Screen: Does the patient meet any 2 criteria? No. Patient's initial sepsis screen is negative. Does the patient have a suspected source of infection? No. Patient's initial sepsis screen is negative. Risk Assessment: Do you want to hurt yourself or someone else? Patient reports no desire to harm self or others. Onset of symptoms was October 24, 2020. 12:37 Method Of Arrival: Ambulatory jd3 12:37 Acuity: KHADAR 4 jd3 Historical: - Allergies: 12:39 Cinnamon; jd3 - Home Meds: 12:39 None [Active]; jd3 - PMHx: 12:39 Anxiety; Bipolar disorder; Schizophrenia; jd3 - PSHx: 12:39 Cholecystectomy; Tonsillectomy; jd3 - Immunization history:: Adult Immunizations up to date. - Social history:: Smoking status: Patient denies any tobacco usage or history of. Screenin:50 Abuse screen: Denies threats or abuse. Nutritional screening: No deficits noted. rb3 Tuberculosis screening: No symptoms or risk factors identified. 12:50 Fall Risk None identified. rb3 Assessment: 13:10 General: Appears in no apparent distress. comfortable, Behavior is calm, cooperative. rb3 Pain: Complains of pain in left ear. Neuro: Level of Consciousness is awake, alert, obeys commands, Oriented to person, place, time, situation. Cardiovascular: Patient's skin is warm and dry. Respiratory: Airway is patent Respiratory effort is even, unlabored, Respiratory pattern is regular, symmetrical. GI: No signs and/or symptoms were reported involving the gastrointestinal system. : No signs and/or symptoms were reported regarding the genitourinary system. EENT: Reports pressure in both ears. Derm: Skin is pink, warm \\T\\ dry. Vital Signs: 12:39 BP 139 / 88; Pulse 81; Resp 17 S; Temp 97.8(TE); Pulse Ox 97% on R/A; Weight 117.03 kg jd3 (R); Height 5 ft. 11 in. (180.34 cm) (R); Pain 9/10; 12:39 Body Mass Index 35.98 (117.03 kg, 180.34 cm) jd3 ED Course: 12:27 Patient arrived in ED. ds1 12:37 Tequila Cornelius FNP-C is [facility]. kb 12:37 Aleksandar Robb MD is Attending Physician. kb 12:38 Triage completed. jd3 12:40 Arm band placed on. jd3 12:47 Goldie Miramontes, RN is Primary Nurse. rb3 12:50 Patient has correct armband on for positive identification. Bed in low position. Call rb3 light in reach. Side rails up X 1. Pulse ox on. NIBP on. 13:13 No provider procedures requiring assistance completed. Patient did not have IV access rb3 during this emergency room visit. Administered Medications: No medications were administered Outcome: 12:57 Discharge ordered by . kb 13:13 Discharged to home ambulatory. rb3 13:13 Condition: stable 13:13 Discharge instructions given to patient, Instructed on discharge instructions, follow up and referral plans. medication usage, Demonstrated understanding of instructions, follow-up care, medications, Prescriptions given X 2. 13:13 Patient left the ED. rb3 Signatures: Tequila Cornelius FNP-C FNP-Ckb Sanford, Demi ds1 Luiz Medina RN RN jd3 Goldie Miramontes, EMILY RN rb3
[2020-10-25 13:18] VITALS: BP 139/88; TEMP 97.8; O2SAT 97
== END 2020-10-25 13:13 | disposition home or self-care (01) ==
LOC: ER 12:24
DX: H66.93 Otitis media, unspecified, bilateral (principal); H60.91 Unspecified otitis externa, right ear; Z91.018 Allergy to other foods
CPT/HCPCS: 99283

== ENCOUNTER 2021-11-12 08:03 | Emergency (ER) | payer SELFPAY ==
--- OUTSIDE RECORDS SUMMARY | 2021-11-12 08:05 | XMS REPORT | Continuity of Care Document ---
:1995 Author Organization [facility] t Address [address] [place] [address] [address] [place] [address] Care Team Providers Name Role Phone Jett Zhao DO Attending Clinician Jett ZHAO Attending Clinician Unavailable Problems This patient has no known problems. Allergies, Adverse Reactions, Alerts Allergy Allergy Status Severity Reaction(s) Onset Inactive Treating Comm ents Source Name Type Date Date Clinician SAYRAON DRUG Active Anaphylaxis 2019-10 Uni vers INGREDI 10-13 ity of 00:00: [address] Medications This patient has no known medications. Procedures This patient has no known procedures. Encounters Start End Encounter Admission Attending Care Care Encounter Source Date/Time Date/Time Type Type Clinicians Facility Department ID 2020-08-13 2020-08-13 Emergency [facility] [id number] 20:42:00 21:06:00 Aminta Page [id number] [place] [id number] [place] [id number] 2020-08-13 2020-08-13 Emergency X [facility] ERT [id number] [facility] 20:42:00 20:42:00 AMINTA gold [facility] Results This patient has no known results.
[2021-11-12] MEDS ORDERED: FENTANYL CITR 100 MCG/2 ML ONE (08:34)
[2021-11-12] MEDS ORDERED: NA CHLORIDE 0.9% 2,000 ML ONE (08:34)
--- NOTE | 2021-11-12 09:00 | RAD REPORT ---
EXAM DESCRIPTION: CT - Head Brain Wo Cont - 11/12/2021 8:34 am CLINICAL HISTORY: HEADACHE Headache, drowsiness COMPARISON: No comparisons TECHNIQUE: All CT scans are performed using dose optimization technique as appropriate and may inclu de automated exposure control or mA/KV adjustment according to patient size. FINDINGS: No intracranial hemorrhage, hydrocephalus or extra-axial fluid collection.No areas of brai n edema or evidence of midline shift. The paranasal sinuses and mastoids are clear. The calvarium is intact. IMPRESSION: No acute intracranial abnormality.
[2021-11-12 09:10] LABS: Absolute Lymphocytes (CBC) 2.2 K/uL (0.7-4.9); Hematocrit 44.9 % (39.6-49.0); Lymphocytes % 27.7 % (15.3-44.8); MPV 8.5 fL (7.6-11.3)
[2021-11-12 09:19] LABS: Protime INR 0.86
--- NOTE | 2021-11-12 09:23 | RAD REPORT ---
EXAM DESCRIPTION: RAD - Chest Single View - 11/12/2021 9:18 am CLINICAL HISTORY: right side pain Chest pain. COMPARISON: Chest Single View dated 06/24/2016; CHEST PA AND LAT 2 VIEW dated 09/13/2011; CHEST SINGL E VIEW dated 11/09/2006 FINDINGS: Portable technique limits examination quality. Mild interstitial opacities are present bilaterally which may represent viral infection. The heart is normal in size. No displaced fractures.
[2021-11-12] MEDS ORDERED: METOCLOPRAMIDE 10 MG/2mL INJ ONE (09:25)
[2021-11-12] MEDS ORDERED: KETOROLAC 30 MG/ML INJ ONE (09:25)
[2021-11-12 09:32] LABS: Barbiturates NEGATIVE (NEGATIVE); Benzodiazepines NEGATIVE (NEGATIVE); Cocaine NEGATIVE (NEGATIVE); METHAMPHETAM NEGATIVE (NEGATIVE); Methadone NEGATIVE (NEGATIVE); Opiates NEGATIVE (NEGATIVE); Phencyclidine NEGATIVE (NEGATIVE); THC Cannibis NEGATIVE (NEGATIVE)
[2021-11-12 09:48] LABS: ALT/SGPT 126 U/L (12-78); Albumin 3.6 g/dL (3.4-5.0); Alkaline Phosphatase 55 U/L (45-117); BUN Blood Urea Nitrogen 8 mg/dL (7-18); Bicarbonate 25 mmol/L (21-32); Bilirubin Direct < 0.1 mg/dL (0-0.2); Bilirubin Total 0.3 mg/dL (0.2-1.0); Glucose Level 122 mg/dL (74-106); Protein, Total 7.9 g/dL (6.4-8.2); Sodium Level 139 mmol/L (136-145)
[2021-11-12 09:51] LABS: AST/SGOT 66 U/L (15-37); NT PRO-BNP < 5 pg/mL (<125); Potassium 4.1 mmol/L (3.5-5.1)
[2021-11-12 11:03] LABS: SARS-COV-2 RT PCR NEGATIVE (NEGATIVE)
--- NOTE | 2021-11-12 11:15 | ER ---
Nurse's Notes [facility] Name: Joaquin Bustos II Age: 25 yrs Sex: Male : 1995 Arrival Date: 11/12/2021 Time: 08:05 Bed 23 Private MD: Diagnosis: Headache Presentation: 11/12 08:14 Chief complaint: Patient states: "last night I went to sleep with a really bad headache jd3 that I think might have been a migraine because it was sensitive to light. this morning I woke up with the same headache as well as my right side of my body just really hurts.". Coronavirus screen: At this time, the client does not indicate any symptoms associated with coronavirus-19. Ebola Screen: No symptoms or risks identified at this time. Initial Sepsis Screen: Does the patient meet any 2 criteria? No. Patient's initial sepsis screen is negative. Does the patient have a suspected source of infection? No. Patient's initial sepsis screen is negative. Risk Assessment: Do you want to hurt yourself or someone else? Patient reports no desire to harm self or others. Onset of symptoms was November 11, 2021. 08:14 Method Of Arrival: Ambulatory jd3 08:14 Acuity: KHADAR 3 jd3 Triage Assessment: 08:15 General: Behavior is calm, cooperative. ke1 11:43 General: Appears in no apparent distress. ke1 Historical: - Allergies: 08:16 Cinnamon; jd3 - Home Meds: 08:16 None [Active]; jd3 - PMHx: 08:16 Bipolar disorder; Anxiety; Schizophrenia; jd3 - PSHx: 08:16 Cholecystectomy; ear tuebes; jd3 - Immunization history:: Adult Immunizations up to date, Client reports having NOT received the Covid vaccine. Flu vaccine is up to date. - Social history:: Smoking status: Patient denies any tobacco usage or history of. Screenin:14 Abuse screen: Denies threats or abuse. Nutritional screening: No deficits noted. ke1 Tuberculosis screening: No symptoms or risk factors identified. Fall Risk No fall in past 12 months (0 pts). No secondary diagnosis (0 pts). IV access (20 points). Ambulatory Aid- None/Bed Rest/Nurse Assist (0 pts). Gait- Normal/Bed Rest/Wheelchair (0 pts) Mental Status- Oriented to own ability (0 pts). Total Mcwilliams Fall Scale indicates No Risk (0-24 pts). Assessment: 08:00 Pain: Complains of pain in right side Pain does not radiate. Pain at worst was 9 out of ke1 10 on a pain scale. Quality of pain is described as Alleviated by rest, repositioning. 09:00 Pain: Complains of pain in right side Goal of pain control is to be pain free. ke1 09:00 Pain: Pain began Is Alleviated by Aggravated by Noted to be Also complains of Current ke1 management is with fentanyl. 10:07 Pain: Complains of pain in Pain decreases to acceptable level 5/10. ke1 11:00 Pain: Denies pain. ke1 Vital Signs: 08:17 BP 140 / 95; Pulse 86; Resp 18 S; Temp 97.9(O); Pulse Ox 98% on R/A; Weight 117.03 kg jd3 (R); Height 5 ft. 11 in. (180.34 cm) (R); Pain 9/10; 10:03 BP 122 / 84; Pulse 66; Resp 18; Pulse Ox 96% on R/A; ke1 08:17 Body Mass Index 35.98 (117.03 kg, 180.34 cm) jd3 ED Course: 08:05 Patient arrived in ED. as 08:07 Wellington Garcia PA is PHCP. cp 08:07 Deedee Mujica MD is Attending Physician. cp 08:09 Luiz Medina, EMILY is Primary Nurse. jd3 08:15 Inserted saline lock: 20 gauge in left hand, using aseptic technique. ke1 08:16 Triage completed. jd3 08:17 Arm band placed on. jd3 08:34 CT Head Brain wo Cont In Process Unspecified. EDMS 09:17 XRAY Chest (1 view) In Process Unspecified. EDMS 09:46 COVID-19/FLU A+B (Document "Date of Onset" if Symptomatic) Sent. ke1 10:16 Patient has correct armband on for positive identification. Bed in low position. Call ke1 light in reach. Adult w/ patient. 11:30 IV discontinued. ke1 11:46 No provider procedures requiring assistance completed. ke1 Administered Medications: 08:45 Drug: NS 0.9% 1000 ml Route: IV; Rate: 1 bolus; Site: left hand; ke1 11:50 Follow up: Response: No adverse reaction; IV Status: Completed infusion ke1 08:45 Drug: fentaNYL (PF) 25 mcg Route: IVP; Site: left hand; ke1 09:58 Follow up: Response: Marked relief of symptoms ke1 09:19 Drug: NS 0.9% 1000 ml Route: IV; Rate: 1 bolus; Site: left hand; ke1 11:50 Follow up: Response: No adverse reaction; IV Status: Completed infusion ke1 09:39 Drug: Reglan (metoCLOPramide) 10 mg Route: IVP; Site: left hand; ke1 09:59 Follow up: Response: Marked relief of symptoms ke1 09:39 Drug: Ketorolac 30 mg Route: IVP; Site: left hand; ke1 09:59 Follow up: Response: Marked relief of symptoms ke1 Outcome: 11:15 Discharge ordered by . cp 11:44 Patient left the ED. ke1 11:47 Discharged to home ke1 11:47 Condition: stable 11:47 Discharge instructions given to patient. Signatures: Dispatcher [employer] EDMima Rodriguez Corey, PA PA cp Davies, Jonathon, RN RN jd3 Scarlett Bernard RN RN ke1 Corrections: (The following items were deleted from the chart) 08:16 08:14 Onset of symptoms was November 12, 2021 jligia jd3 10:05 09:48 Pain: Complains of pain in right side pain Aggravated by moving ke1 ke1 10:05 09:51 Pain: Pain does not radiate. Pain level that patient reports is acceptable is 5 ke1 out of 10 on a pain scale. Alleviated by medications, rest, ke1 11:50 11:49 Response: No adverse reaction ke1 ke1 11:50 11:49 Response: No adverse reaction ke1 ke1
--- NOTE | 2021-11-12 11:15 | EDPHYS ---
Physician Documentation [facility] Name: Joaquin Bustos II Age: 25 yrs Sex: Male : 1995 Arrival Date: 11/12/2021 Time: 08:05 Bed 23 Private MD: ED Physician Deedee Mujica HPI: 11/12 08:15 This 25 yrs old Male presents to ER via Ambulatory with complaints of cp Numbness, Pain All Over - r side. 08:15 The patient complains of pain to the right side of head. cp 08:15 Onset: The symptoms/episode began/occurred yesterday. Associated signs and symptoms: cp Pertinent positives: pain and weakness to right side of body, Pertinent negatives: altered mental status, fever, neck stiffness, vision loss. Historical: - Allergies: 08:16 Cinnamon; jd3 - Home Meds: 08:16 None [Active]; jd3 - PMHx: 08:16 Bipolar disorder; Anxiety; Schizophrenia; jd3 - PSHx: 08:16 Cholecystectomy; ear tuebes; jd3 - Immunization history:: Adult Immunizations up to date, Client reports having NOT received the Covid vaccine. Flu vaccine is up to date. - Social history:: Smoking status: Patient denies any tobacco usage or history of. ROS: 08:20 Constitutional: Negative for chills, fever, poor PO intake. cp 08:20 Eyes: Negative for injury, pain, redness, and discharge. cp 08:20 Cardiovascular: Negative for chest pain, edema, palpitations. 08:20 Respiratory: Negative for cough, shortness of breath, wheezing. 08:20 Abdomen/GI: Negative for abdominal pain, vomiting, diarrhea, constipation. 08:20 Back: Negative for pain at rest, pain with movement. 08:20 Neuro: Positive for headache, numbness, weakness, Negative for altered mental status, syncope. 08:20 All other systems are negative. Exam: 08:25 Constitutional: The patient appears in no acute distress, alert, awake, cp non-diaphoretic, non-toxic, well developed, well nourished, uncomfortable, overweight 08:25 Head/Face: Normocephalic, atraumatic. cp 08:25 Eyes: Periorbital structures: appear normal, Pupils: equal, round, and reactive to cp light and accomodation, Extraocular movements: intact throughout, Conjunctiva: normal, no exudate, no injection, Lids and lashes: appear normal, bilaterally. 08:25 ENT: External ear(s): are unremarkable, Nose: is normal, Mouth: Lips: moist, Oral mucosa: moist, Posterior pharynx: Airway: no evidence of obstruction, patent. 08:25 Neck: ROM/movement: is normal, is supple, without pain, no range of motions limitations. 08:25 Chest/axilla: Inspection: normal, Palpation: is normal, no crepitus, no tenderness. 08:25 Cardiovascular: Rate: normal, Rhythm: regular, Edema: is not appreciated, JVD: is not appreciated. 08:25 Respiratory: the patient does not display signs of respiratory distress, Respirations: normal, no use of accessory muscles, no retractions, labored breathing, is not present, Breath sounds: are clear throughout, no decreased breath sounds, no stridor, no wheezing. 08:25 Abdomen/GI: Inspection: abdomen appears normal, Palpation: abdomen is soft and non-tender, in all quadrants. 08:25 Neuro: Orientation: to person, place \\T\\ time. Mentation: is normal, Cerebellar function: is grossly normal, Motor: moves all fours, strength is normal, Sensation: no obvious gross deficits. 09:10 ECG was reviewed by the Attending Physician. Vital Signs: 08:17 BP 140 / 95; Pulse 86; Resp 18 S; Temp 97.9(O); Pulse Ox 98% on R/A; Weight 117.03 kg jd3 (R); Height 5 ft. 11 in. (180.34 cm) (R); Pain 9/10; 10:03 BP 122 / 84; Pulse 66; Resp 18; Pulse Ox 96% on R/A; ke1 08:17 Body Mass Index 35.98 (117.03 kg, 180.34 cm) jd3 MDM: 08:12 Patient medically screened. cp 08:30 Differential diagnosis: cerebral vascular accident, intracerebral hemorrhage, cp meningitis, meningoencephalitis, migraine, tension headache. 11:12 Data reviewed: vital signs, nurses notes, lab test result(s), EKG, radiologic studies, cp CT scan, plain films. Data interpreted: athletic monitor: rate is 79 beats/min, rhythm is normal sinus rhythm, Interpretation: normal rate, normal rhythm, Pulse oximetry: on room air is 96 %. Interpretation: acceptable. Test interpretation: by ED physician or midlevel provider: ECG, plain radiologic studies. ED course: VSS. Patient reports headache markedly improved. Will discharge to home for continued monitoring. 11/12 08:13 Order name: UDS; Complete Time: 10:29 cp 11/12 08:13 Order name: Basic Metabolic Panel cp 11/12 10:30 Interpretation: Normal except: CL 109; GLUC 122. cp 11/12 08:13 Order name: CBC with Diff; Complete Time: 09:25 cp 11/12 09:25 Interpretation: Reviewed. cp 11/12 08:13 Order name: LFT's cp 11/12 10:30 Interpretation: Normal except: AST 66; ALT 126; GLOB 4.3; A/G 0.8. cp 11/12 08:13 Order name: Magnesium cp 11/12 08:13 Order name: NT PRO-BNP cp 11/12 08:13 Order name: PT-INR; Complete Time: 09:25 cp 11/12 09:25 Interpretation: Reviewed. cp 11/12 08:13 Order name: Troponin HS cp 11/12 08:13 Order name: XRAY Chest (1 view); Complete Time: 09:25 cp 11/12 09:26 Interpretation: Report reviewed. cp 11/12 08:13 Order name: CT Head Brain wo Cont; Complete Time: 09:05 cp 11/12 09:05 Interpretation: Report reviewed. cp 11/12 09:27 Order name: COVID-19/FLU A+B (Document "Date of Onset" if Symptomatic) cp 11/12 09:28 Order name: COVID-19/FLU A+B EDMS 11/12 08:13 Order name: EKG; Complete Time: 08:14 cp 11/12 08:13 Order name: Cardiac monitoring; Complete Time: 08:30 cp 11/12 08:13 Order name: EKG - Nurse/Tech; Complete Time: 09:05 cp 11/12 08:13 Order name: IV Saline Lock; Complete Time: 09:05 cp 11/12 08:13 Order name: Labs collected and sent; Complete Time: 09:05 cp 11/12 08:13 Order name: O2 Per Protocol; Complete Time: 08:17 cp 11/12 08:13 Order name: O2 Sat Monitoring; Complete Time: 08:17 cp 11/12 08:13 Order name: Urine Dipstick-Ancillary (obtain specimen); Complete Time: 09:21 cp 11/12 08:43 Order name: Blood Pressure Recheck: bilateral upper extremity; Complete Time: 09:19 cp EC:10 Rate is 70 beats/min. Rhythm is regular. WV interval is normal. QRS interval is normal. cp QT interval is normal. T waves are Inverted in lead aVR. Interpreted by me. Reviewed by me. Administered Medications: 08:45 Drug: NS 0.9% 1000 ml Route: IV; Rate: 1 bolus; Site: left hand; ke1 11:50 Follow up: Response: No adverse reaction; IV Status: Completed infusion ke1 08:45 Drug: fentaNYL (PF) 25 mcg Route: IVP; Site: left hand; ke1 09:58 Follow up: Response: Marked relief of symptoms ke1 09:19 Drug: NS 0.9% 1000 ml Route: IV; Rate: 1 bolus; Site: left hand; ke1 11:50 Follow up: Response: No adverse reaction; IV Status: Completed infusion ke1 09:39 Drug: Reglan (metoCLOPramide) 10 mg Route: IVP; Site: left hand; ke1 09:59 Follow up: Response: Marked relief of symptoms ke1 09:39 Drug: Ketorolac 30 mg Route: IVP; Site: left hand; ke1 09:59 Follow up: Response: Marked relief of symptoms ke1 Disposition Summary: 11/12/21 11:15 Discharge Ordered Location: Home cp Problem: new cp Symptoms: have improved cp Condition: Stable cp Diagnosis - Headache cp Followup: cp - With: Private Physician - When: 1 - 2 days - Reason: Recheck today's complaints Discharge Instructions: - Discharge Summary Sheet cp - Migraine Headache cp Forms: - Medication Reconciliation Form cp - Thank You Letter cp - Antibiotic Education cp - Prescription Opioid Use cp Prescriptions: - Ibuprofen 800 mg Oral Tablet - take 1 tablet by ORAL route every 8 hours As needed take with food; 30 tablet; cp Refills: 0, Product Selection Permitted - Zofran 4 mg Oral Tablet - take 1 tablet by ORAL route every 12 hours As needed; 20 tablet; Refills: 0, cp Product Selection Permitted Addendum: 11/13/2021 12:49 Co-signature as Attending Physician, Deedee Mujica MD I agree with the assessment and s p3 plan of care. Signatures: Dispatcher [employer] EDWellington Tello PA PA cp Davies, Jonathon, RN RN jd3 Deedee Mujica MD MD sp3 Scarlett Bernard RN RN ke1 Corrections: (The following items were deleted from the chart) 11/12 20:03 20:02 Constitutional: The patient appears in no acute distress, alert, awake, cp non-diaphoretic, non-toxic, well developed, well nourished, uncomfortable, overweight cp
[2021-11-12 11:49] VITALS: TEMP 97.9
[2021-11-12 11:50] VITALS: BP 122/84; O2SAT 96
[2021-11-12 22:10] LABS: Magnesium 2.1
[2021-11-17 10:11] LABS: Urine Blood Trace-intact (Negative); Urine Glucose Negative (Negative); Urine Protein Trace (Negative); Urine Specific Gravity 1.025 (1.005-1.030)
== END 2021-11-12 11:44 | disposition home or self-care (01) ==
LOC: ER 08:03
DX: R51.9 Headache, unspecified (principal); F20.9 Schizophrenia, unspecified; Z91.018 Allergy to other foods; Z20.822 Contact with and (suspected) exposure to COVID-19
CPT/HCPCS: 0240U; 36415; 70450; 71045; 80048; 80076; 80307; 81003; 83735; 83880; 84484; 85025; 85610; 93005; 96361; 96374; 96375; 99284; J2765; J3010; J7030

== ENCOUNTER 2022-01-13 16:36 | Emergency (ER) | payer SELFPAY ==
--- OUTSIDE RECORDS SUMMARY | 2022-01-13 16:38 | XMS REPORT | Continuity of Care Document ---
:1995 Author Organization [facility] t Address [address] [place] [address] [address] [place] [address] Care Team Providers Name Role Phone Jett Zhao DO Attending Clinician Jett ZHAO Attending Clinician Unavailable Problems This patient has no known problems. Allergies, Adverse Reactions, Alerts Allergy Allergy Status Severity Reaction(s) Onset Inactive Treating Comm ents Source Name Type Date Date Clinician SAYRAON DRUG Active Anaphylaxis 2019-10 Uni vers INGREDI 10-13 ity of 00:00: [address] Medications This patient has no known medications. Procedures This patient has no known procedures. Encounters Start End Encounter Admission Attending Care Care Encounter Source Date/Time Date/Time Type Type Clinicians Facility Department ID 2020-08-13 2020-08-13 Emergency [facility] [id number] 20:42:00 21:06:00 Aminta Page [id number] [place] [id number] [place] [id number] 2020-08-13 2020-08-13 Emergency X [facility] ERT [id number] 20:42:00 20:42:00 AMINTA gold [facility] Results This patient has no known results.
[2022-01-13] MEDS ORDERED: MORPHINE 4 MG/ML SYR ONE ×2 (20:04→23:52)
[2022-01-13] MEDS ORDERED: ONDANSETRON 4 MG/2 ML VIAL ONE ×2 (20:04→23:52)
[2022-01-13 20:25] LABS: Absolute Lymphocytes (CBC) 3.4 K/uL (0.7-4.9); Hematocrit 45.4 % (39.6-49.0); Lymphocytes % 31.6 % (15.3-44.8); RBC Red Blood Cell Count 5.27 M/uL (4.33-5.43)
[2022-01-13 20:45] LABS: ALT/SGPT 101 U/L (12-78); Albumin 3.9 g/dL (3.4-5.0); Alkaline Phosphatase 57 U/L (45-117); BUN Blood Urea Nitrogen 10 mg/dL (7-18); Bicarbonate 20 mmol/L (21-32); Bilirubin Total 0.4 mg/dL (0.2-1.0); Glucose Level 97 mg/dL (74-106); Lipase 2245 U/L (73-393); Protein, Total 8.7 g/dL (6.4-8.2); Sodium Level 134 mmol/L (136-145)
[2022-01-13 20:46] LABS: AST/SGOT 57 U/L (15-37); Potassium 3.8 mmol/L (3.5-5.1)
[2022-01-13] MEDS ORDERED: NA CHLORIDE 0.9% 1,000 ML ONE (21:21)
[2022-01-14 01:03] LABS: SARS-COV-2 RT PCR NEGATIVE (NEGATIVE)
--- NOTE | 2022-01-14 01:14 | EDPHYS ---
Physician Documentation [facility] Name: Joaquin Bustos II Age: 26 yrs Sex: Male : 1995 Arrival Date: 01/13/2022 Time: 16:38 Bed 18 Private MD: ED Physician Miguel Suarez HPI: 01/13 17:41 This 26 yrs old Male presents to ER via Ambulatory with complaints of jr8 Abdominal Pain, Back Pain. 17:41 The patient presents with abdominal pain in the upper abdomen. Onset: The jr8 symptoms/episode began/occurred acutely, today. The symptoms radiate to right back. Associated signs and symptoms: none. The symptoms are described as shooting. Modifying factors: The symptoms are alleviated by nothing, the symptoms are aggravated by nothing. Severity of pain: At its worst the pain was moderate in the emergency department the pain is unchanged. The patient has experienced similar episodes in the past, a few times. The patient has not recently seen a physician. Patient stated that he had his gallbladder taken out several years ago. As a result has had a couple bouts of pancreatitis in the past. Today started with upper abdominal pain radiating to the right upper quadrant and then to the right side of the back. Denies nausea, vomiting, diarrhea, fevers at this time.. Historical: - Allergies: 17:26 Cinnamon; ll1 - PMHx: 17:26 Anxiety; Bipolar disorder; Schizophrenia; ll1 - PSHx: 17:26 Cholecystectomy; ear tubes; L hand fingers SX; ll1 - Immunization history:: Client reports having NOT received the Covid vaccine. - Social history:: Smoking status: Patient denies any tobacco usage or history of. ROS: 17:41 Eyes: Negative for injury, pain, redness, and discharge, ENT: Negative for injury, jr8 pain, and discharge, Neck: Negative for injury, pain, and swelling, Cardiovascular: Negative for chest pain, palpitations, and edema, Respiratory: Negative for shortness of breath, cough, wheezing, and pleuritic chest pain, Back: Negative for injury and pain, MS/Extremity: Negative for injury and deformity, Skin: Negative for injury, rash, and discoloration, Neuro: Negative for headache, weakness, numbness, tingling, and seizure. 17:41 Abdomen/GI: Positive for abdominal pain, Negative for nausea, vomiting, and diarrhea. Exam: 17:41 Constitutional: This is a well developed, well nourished patient who is awake, alert, jr8 and in no acute distress. Cardiovascular: Regular rate and rhythm with a normal S1 and S2. No gallops, murmurs, or rubs. Normal PMI, no JVD. No pulse deficits. Respiratory: Lungs have equal breath sounds bilaterally, clear to auscultation and percussion. No rales, rhonchi or wheezes noted. No increased work of breathing, no retractions or nasal flaring. Back: No spinal tenderness. No costovertebral tenderness. Full range of motion. Skin: Warm, dry with normal turgor. Normal color with no rashes, no lesions, and no evidence of cellulitis. MS/ Extremity: Pulses equal, no cyanosis. Neurovascular intact. Full, normal range of motion. Neuro: Awake and alert, GCS 15, oriented to person, place, time, and situation. Cranial nerves II-XII grossly intact. Motor strength 5/5 in all extremities. Sensory grossly intact. 17:41 Abdomen/GI: Inspection: obese Bowel sounds: active, all quadrants, Palpation: soft, in all quadrants, mild abdominal tenderness, in the epigastric area and right upper quadrant, mass, is not appreciated, rebound tenderness, is not appreciated, voluntary guarding, is not appreciated, involuntary guarding, is not appreciated, no appreciated organomegaly, Indicators: McBurney's point is not tender, Beltran's sign is negative, Rovsing's sign is negative, Liver: tenderness, is not appreciated. Vital Signs: 17:24 BP 161 / 99; Pulse 100; Resp 17; Temp 98.8; Pulse Ox 95% ; Weight 121.56 kg; Height 5 ll1 ft. 11 in. (180.34 cm); Pain 10/10; 20:25 BP 132 / 93 LA Supine (man/lg); Pulse 79 MON; Resp 18 S; Pulse Ox 100% ; Pain 10/10; ag7 21:43 BP 123 / 74 LA Supine; Pulse 80; Resp 16 S; Pulse Ox 96% on R/A; Pain 9/10; ag7 22:46 BP 135 / 77; Pulse 75; Resp 18 S; Pulse Ox 95% on R/A; Pain 9/10; ag7 23:39 BP 128 / 92; Pulse 73; Resp 18; Pulse Ox 98% on R/A; Pain 9/10; ag7 01/14 00:00 BP 125 / 72; Pulse 70; Resp 18 S; Pulse Ox 98% ; Pain 9/10; ag7 00:40 Pain 6/10; ag7 01:00 BP 111 / 63; Pulse 70; Resp 18 S; Pulse Ox 91% on R/A; Pain 0/10; ag7 01/13 17:24 Body Mass Index 37.38 (121.56 kg, 180.34 cm) ll1 MDM: 01/13 17:36 Patient medically screened. jr8 21:06 Data reviewed: vital signs, nurses notes, lab test result(s). Counseling: I had a kdr detailed discussion with the patient and/or guardian regarding: the historical points, exam findings, and any diagnostic results supporting the discharge/admit diagnosis, lab results, the need for outpatient follow up. 01/13 17:35 Order name: CBC with Diff; Complete Time: 20:32 [facility] 01/13 17:35 Order name: CMP; Complete Time: 21:17 [facility] 01/13 17:35 Order name: Lipase; Complete Time: 21:17 [facility] 01/13 21:17 Order name: CT Abd/Pelvis - IV Contrast Only kdr 01/14 00:14 Order name: COVID-19/FLU A+B (Document "Date of Onset" if Symptomatic); Complete Time: mw2 01:52 01/13 17:35 Order name: IV Saline Lock; Complete Time: 20:42 [facility] 01/13 17:35 Order name: Labs collected and sent; Complete Time: 20:21 Administered Medications: 20:39 Drug: Zofran (Ondansetron) 4 mg Route: IVP; Site: right antecubital; vc1 20:42 Follow up: Response: No adverse reaction lg3 20:39 Drug: morphine 4 mg Route: IVP; Site: right antecubital; vc1 20:42 Follow up: Response: No adverse reaction; RASS: Alert and Calm (0) lg3 23:22 Drug: NS 0.9% 1000 ml Route: IV; Rate: 1 bolus; Site: left upper arm; ag7 01/14 00:39 Follow up: Response: No adverse reaction; IV Status: Completed infusion; IV Intake: ag7 1000ml 01/13 23:58 Drug: morphine 4 mg Route: IVP; Site: left upper arm; ag7 01/14 00:40 Follow up: Pain 6/10 Adult; Response: No adverse reaction; RASS: Alert and Calm (0) ag7 01/13 23:58 Drug: Zofran (Ondansetron) 4 mg Route: IVP; Site: left upper arm; ag7 01/14 00:40 Follow up: Response: No adverse reaction ag7 Disposition: 01:13 Co-signature as Attending Physician, Miguel Suarez MD I agree with the assessment and kdr plan of care. Disposition Summary: 01/14/22 01:13 Transfer Ordered Transfer Location: [facility] kdr Reason: Higher level of care kdr Condition: Fair kdr Problem: an acute exacerbation kdr Symptoms: have improved kdr Accepting Physician: (01/14/22 03:13) ag7 Diagnosis - Upper abdominal pain, unspecified kdr - Other chronic pancreatitis kdr Forms: - Medication Reconciliation Form kdr - SBAR form kdr Signatures: Dispatcher [employer] EDMS Miguel Suarez MD MD kdr Dominick Salgado PA PA jr8 Padmini Phelan RN RN ll1 Jossy Suresh RN RN vc1 Theresa Castillo RN RN ag7 Kyleigh Whitfield RN lg3 Corrections: (The following items were deleted from the chart) 03:13 01:13 kdr ag7
--- NOTE | 2022-01-14 01:14 | ER ---
Nurse's Notes [facility] Name: Joaquin Bustos II Age: 26 yrs Sex: Male : 1995 Arrival Date: 01/13/2022 Time: 16:38 Bed 18 Private MD: Diagnosis: Upper abdominal pain, unspecified;Other chronic pancreatitis Presentation: 01/13 17:24 Chief complaint: Patient states: RUQ pain that wraps around R side to back for 1 day. ll1 No fever. Coronavirus screen: Vaccine status: Patient reports being unvaccinated. Client denies travel out of the [place] in the last 14 days. At this time, the client does not indicate any symptoms associated with coronavirus-19. Ebola Screen: Patient denies travel to an Ebola-affected area in the 21 days before illness onset. Initial Sepsis Screen: Does the patient meet any 2 criteria? No. Patient's initial sepsis screen is negative. Does the patient have a suspected source of infection? Yes: Skin breakdown/wound. Risk Assessment: Do you want to hurt yourself or someone else? Patient reports no desire to harm self or others. Onset of symptoms was January 13, 2022. 17:24 Method Of Arrival: Ambulatory ll1 17:24 Acuity: KHADAR 3 ll1 Triage Assessment: 17:26 General: Appears in no apparent distress. Behavior is calm, cooperative, appropriate ll1 for age. Pain: Complains of pain in RUQ Quality of pain is described as aching. Neuro: No deficits noted. Cardiovascular: No deficits noted. Respiratory: No deficits noted. GI: Abdomen is round. Historical: - Allergies: 17:26 Cinnamon; ll1 - PMHx: 17:26 Anxiety; Bipolar disorder; Schizophrenia; ll1 - PSHx: 17:26 Cholecystectomy; ear tubes; L hand fingers SX; ll1 - Immunization history:: Client reports having NOT received the Covid vaccine. - Social history:: Smoking status: Patient denies any tobacco usage or history of. Screenin:26 Abuse screen: Denies threats or abuse. Nutritional screening: No deficits noted. ag7 Tuberculosis screening: No symptoms or risk factors identified. Fall Risk No fall in past 12 months (0 pts). No secondary diagnosis (0 pts). No IV (0 pts). Ambulatory Aid- None/Bed Rest/Nurse Assist (0 pts). Gait- Normal/Bed Rest/Wheelchair (0 pts) Mental Status- Oriented to own ability (0 pts). Total Mcwilliams Fall Scale indicates No Risk (0-24 pts). Assessment: 20:21 General: Appears in no apparent distress. comfortable, Behavior is calm, cooperative, ag7 appropriate for age. Pain: Complains of pain in right upper quadrant Pain radiates to back Pain currently is 10 out of 10 on a pain scale. Quality of pain is described as aching, stabbing, gnawing, Pain began suddenly, Is continuous. Neuro: Level of Consciousness is awake, alert, obeys commands, Oriented to person, place, time, situation, Appropriate for age. Cardiovascular: Heart tones S1 S2 present. Respiratory: Airway is patent Trachea midline Respiratory effort is even, unlabored, Breath sounds are clear bilaterally. GI: Bowel sounds present X 4 quads. Abd is soft and non tender X 4 quads. Reports upper abdominal pain, Patient currently denies nausea, vomiting. 21:40 Reassessment: Patient and/or family updated on plan of care and expected duration. Pain ag7 level reassessed. Patient is alert, oriented x 3, equal unlabored respirations, skin warm/dry/pink. Pain: Complains of pain in right upper quadrant, radiate flank Pain currently is 9 out of 10 on a pain scale. Quality of pain is described as sharp, Pain began gradually, Is intermittent, Current management is with patient refuse additional pain medication at this time - is no interventions. 22:44 Reassessment: No changes from previously documented assessment. Patient and/or family ag7 updated on plan of care and expected duration. Pain level reassessed. Patient is alert, oriented x 3, equal unlabored respirations, skin warm/dry/pink. Patient c/o intermittent RUQ, flank pain 9/10, refuse pain medication. 23:44 Reassessment: Patient and/or family updated on plan of care and expected duration. Pain ag7 level reassessed. Patient is alert, oriented x 3, equal unlabored respirations, skin warm/dry/pink. Pain 9/10. 23:58 Reassessment: Verbal order read back MD Suarez for morphine 4 mg and Zofran 4 mg IVP x ag7 1. Patient RASS 1 at this time. 01/14 00:58 Reassessment: Patient and/or family updated on plan of care and expected duration. Pain ag7 level reassessed. Patient is alert, oriented x 3, equal unlabored respirations, skin warm/dry/pink. pain 9/10 Patient states feeling better. 01:57 Reassessment: Patient and/or family updated on plan of care and expected duration. Pain ag7 level reassessed. Patient is alert, oriented x 3, equal unlabored respirations, skin warm/dry/pink. Patient resting with eyes closed. 03:22 Reassessment: Report given to OTILIA DIAZ [facility] rm 946. ag7 Vital Signs: 01/13 17:24 BP 161 / 99; Pulse 100; Resp 17; Temp 98.8; Pulse Ox 95% ; Weight 121.56 kg; Height 5 ll1 ft. 11 in. (180.34 cm); Pain 10/10; 20:25 BP 132 / 93 LA Supine (man/lg); Pulse 79 MON; Resp 18 S; Pulse Ox 100% ; Pain 10/10; ag7 21:43 BP 123 / 74 LA Supine; Pulse 80; Resp 16 S; Pulse Ox 96% on R/A; Pain 9/10; ag7 22:46 BP 135 / 77; Pulse 75; Resp 18 S; Pulse Ox 95% on R/A; Pain 9/10; ag7 23:39 BP 128 / 92; Pulse 73; Resp 18; Pulse Ox 98% on R/A; Pain 9/10; ag7 01/14 00:00 BP 125 / 72; Pulse 70; Resp 18 S; Pulse Ox 98% ; Pain 9/10; ag7 00:40 Pain 6/10; ag7 01:00 BP 111 / 63; Pulse 70; Resp 18 S; Pulse Ox 91% on R/A; Pain 0/10; ag7 01/13 17:24 Body Mass Index 37.38 (121.56 kg, 180.34 cm) ll1 ED Course: 01/13 16:38 Patient arrived in ED. rg4 16:50 Donald Mackenzie DO is Attending Physician. ms3 17:26 Triage completed. ll1 17:26 Arm band placed on. ll1 17:34 [facility] jr8 19:29 Attending Physician role handed off by Donald Mackenzie DO kdr 19:29 Miguel Suarez MD is Attending Physician. kdr 20:21 Theresa Castillo, EMILY is Primary Nurse. ag7 20:21 Inserted blood draw obtained at this time and left AC infiltrate Missed attempt(s): 20 ag7 gauge in right in left antecubital area. 20:27 Bed in low position. Call light in reach. Adult w/ patient. ag7 20:27 No provider procedures requiring assistance completed. ag7 20:35 Inserted saline lock: 22 gauge in right antecubital area, using aseptic technique. vc1 Missed attempt(s): 22 gauge in right antecubital area. 20:42 CMP Sent. lg3 20:42 Lipase Sent. lg3 23:00 Accessed midline insertion per Beto hospitalist to the left upper arm Clean \T\ dry. ag7 Dressing intact. Good blood return. Flushes easily. 23:58 CT Abd/Pelvis - IV Contrast Only In Process Unspecified. EDMS 01/14 00:27 initiated a transfer with Cornelia Kobe from [facility] 02:13 administrative approval given by Cornelia Bullock/ patient has been accepted to [address] bed 946/ Dr. Curiel accepted the patient in transfer/report to be called to [phone]. 03:12 Patient transferred, IV remains in place. ag7 Administered Medications: 01/13 20:39 Drug: Zofran (Ondansetron) 4 mg Route: IVP; Site: right antecubital; vc1 20:42 Follow up: Response: No adverse reaction lg3 20:39 Drug: morphine 4 mg Route: IVP; Site: right antecubital; vc1 20:42 Follow up: Response: No adverse reaction; RASS: Alert and Calm (0) lg3 23:22 Drug: NS 0.9% 1000 ml Route: IV; Rate: 1 bolus; Site: left upper arm; ag7 01/14 00:39 Follow up: Response: No adverse reaction; IV Status: Completed infusion; IV Intake: ag7 1000ml 01/13 23:58 Drug: morphine 4 mg Route: IVP; Site: left upper arm; ag7 01/14 00:40 Follow up: Pain 6/10 Adult; Response: No adverse reaction; RASS: Alert and Calm (0) ag7 01/13 23:58 Drug: Zofran (Ondansetron) 4 mg Route: IVP; Site: left upper arm; ag7 01/14 00:40 Follow up: Response: No adverse reaction ag7 Intake: 00:39 IV: 1000ml; Total: 1000ml. ag7 Outcome: 01:13 ER care complete, transfer ordered by . kdr 03:12 Transferred to [facility], Note: PENDING CALL TO OTILIA DIAZ, NO ANSWER ag7 03:12 Condition: stable 03:13 Patient left the ED. ag7 Signatures: Dispatcher [employer] EDMS Miguel Suarez MD MD kdr Dominick Salgado PA PA jr8 Imani Best rg4 Thomas Greene mw2 Kyleigh Whitfield RN RN lg3 Padmini Phelan RN RN ll1 Donald Mackenzie DO DO ms3 Jossy Suresh, RN RN vc1 Theresa Castillo RN RN ag7 Corrections: (The following items were deleted from the chart) 01/13 21:43 21:40 Pain: Complains of pain in right upper quadrant, radiate flank Pain currently is ag7 9 out of 10 on a pain scale. Quality of pain is described as sharp, Pain began gradually, Is intermittent, ag7 22:18 20:21 Missed attempt(s): 20 gauge in right in left antecubital area. ag7 ag7 22:55 21:23 NS 0.9% 1000 ml IV at 1 bolus in right antecubital ag7 ag7 01/14 01: 00:58 Reassessment: Patient and/or family updated on plan of care and expected ag7 duration. Pain level reassessed. Patient is alert, oriented x 3, equal unlabored respirations, skin warm/dry/pink. pain 6/10 Patient states feeling better. ag7 01:05 00:00 BP 125 / 72; Pulse 70bpm; Resp 18bpm; Spontaneous; Pulse Ox 98%; Pain 6/10; ag7 ag7 :12 01/13 23:58 Reassessment: Verbal order read back MD Conti for morphine 4 mg and ag7 Zofran 4 mg IVP x 1. Patient RASS 1 ag7 01/14 01:14 04/13 23:58 Reassessment: Verbal order read back MD Suarez for morphine 4 mg and ag7 Zofran 4 mg IVP x 1. Patient RASS 1 ag7
[2022-01-14 09:01] VITALS: TEMP 98.8
[2022-01-14 09:13] VITALS: BP 111/63; O2SAT 91
--- NOTE | 2022-01-14 13:49 | RAD REPORT ---
EXAM DESCRIPTION: CT - Abdomen Pelvis W Contrast - 01/14/2022 5:41 am CLINICAL HISTORY: 26 years, Male, RLQ abdominal pain COMPARISON: 06/24/2016. TECHNIQUE: Contrast-enhanced images of the abdomen and pelvis were performed utilizing 5 mm slice th ickness at 5 mm interval reconstruction from the lung bases to the ischial tuberosities after the adm inistration of IV contrast. In addition multiplanar reformats in the coronal and sagittal plane were obtained and reviewed. This exam was performed according to our departmental dose-optimization protocol, which includes auto mated exposure control, adjustment of the mA and/or kV according to patient size and/or use of iterat julia reconstruction technique. FINDINGS: The lung bases demonstrate to be clear. The liver, pancreas, spleen and adrenal glands demonstrate to be unremarkable, no focal lesions are n oted. Surgical clips within the gallbladder fossa correspond to previous cholecystectomy. There is no biliary duct dilatation. The kidneys demonstrate normal uptake of contrast media. No evidence for nephrolithiasis and/or hydro nephrosis. Grossly the unopacified stomach, small bowel and large bowel demonstrate to be within normal limits. There is no evidence for bowel dilatation/or free air. The appendix is normal. The urinary bladder demonstrate to be unremarkable. The prostate gland is normal. The aorta demon strate to be normal. There is no retroperitoneal lymphadenopathy. There is no ascites. The rest of the soft tissue and bony structures are within normal limits. IMPRESSION: No acute intra-abdominal process. Normal appendix. Status post cholecystectomy. Electronically signed by: Dequan Edwards MD 01/14/2022 12:13 AM CDT Due to temporary technical issues with the PACS/Fluency reporting system, reports are being signed by the in house radiologists without review as a courtesy to insure prompt reporting. The interpreting radiologist is fully responsible for the content of the report.
== END 2022-01-14 03:13 | disposition short-term general hospital (02) ==
LOC: ER 16:36
DX: K86.1 Other chronic pancreatitis (principal); Z91.02 Food additives allergy status; Z20.822 Contact with and (suspected) exposure to COVID-19
CPT/HCPCS: 0240U; 36415; 74177; 80053; 83690; 85025; 99285; J2405; J7030; Q9967

== ENCOUNTER 2024-01-31 18:42 | Inpatient (IN) | payer SELFPAY ==
[2024-01-31] MEDS ORDERED: ONDANSETRON 4 MG/2 ML VIAL ONE (21:51)
[2024-01-31] MEDS ORDERED: KETOROLAC 30 MG/ML INJ ONE (21:51)
[2024-01-31] MEDS ORDERED: FAMOTIDINE 20 MG/2 ML VIAL IV ONE (21:51)
[2024-01-31] MEDS ORDERED: NA CHLORIDE 0.9% 1,000 ML ONE ×2 (21:51→23:14)
[2024-01-31 22:26] LABS: Absolute Basophils 0.1 K/uL (0-0.5); Absolute Eosinophils 0.3 K/uL (0-0.5); Absolute Lymphocytes (CBC) 2.9 K/uL (0.7-4.9); Absolute Monocytes 0.8 K/uL (0.1-1.3); Absolute Neutrophil 8.9 K/uL (1.8-8.0); Eosinophils % 1.9 % (0-4.4); Hematocrit 42.4 % (39.6-49.0); Hemoglobin 14.8 g/dL (13.6-17.9); Lymphocytes % 22.3 % (15.3-44.8); MCH 29.8 pg (27.0-35.0); MCHC 34.9 g/dL (32.0-36.0); MCV 85.5 fL (80-100); MPV 8.8 fL (7.6-11.3); Monocytes % 6.3 % (3.3-12.3); Neutrophils % 68.5 % (41.7-73.7); Nucleated Red Blood Cells % 0.2 % (0-0); Platelets 278 thou/uL (152-406); RBC Red Blood Cell Count 4.96 M/uL (4.33-5.43); Red Cell Distribution Width 13.2 % (12.1-15.2)
[2024-01-31 22:29] LABS: Specific Gravity 1.027 (1.005-1.030); Sqamous Epithelial <5 /HPF (None Seen); Urine Bacteria None Seen /HPF (<20); Urine Bilirubin NEGATIVE (Negative); Urine Blood Trace (Negative); Urine Clarity Clear (Clear); Urine Color Light-Yellow (Yellow); Urine Culture Reflex Order NOT NEEDED; Urine Glucose NEGATIVE (Negative); Urine Ketones NEGATIVE (Negative); Urine Microscopic Reflex YN ORDER UMIC; Urine Mucus Slight /HPF (None Seen); Urine Nitrite NEGATIVE (Negative); Urine Protein 2+ (Negative); Urine RBC <5 /HPF (None Seen); Urine Urobilinogen Normal (Normal); Urine WBC <5 /HPF (<5)
[2024-01-31 22:44] LABS: Albumin 3.6 g/dL (3.4-5.0); Albumin/Globulin Ratio 0.8 (1.1-1.8); Anion Gap 7.4 mEq/L (5.0-15.0); Bilirubin Total 0.5 mg/dL (0.2-1.0); Globulin 4.3 g/dL (2.3-3.5); Potassium 3.4 mEq/L (3.5-5.1); Protein, Total 7.9 g/dL (6.4-8.2)
--- NOTE | 2024-02-01 00:54 | ER ---
Nurse's Notes [facility] Name: Joaquin Bustos II Age: 28 yrs Sex: Male : 1995 Arrival Date: 01/31/2024 Time: 18:42 Bed 19 Private MD: Diagnosis: Acute pancreatitis without necrosis or infection, unspecified Presentation: 01/30 18:57 Chief complaint: Patient states: upper abdominal pain that started today. Coronavirus as6 screen: At this time, the client does not indicate any symptoms associated with coronavirus-19. Ebola Screen: No symptoms or risks identified at this time. Initial Sepsis Screen: Does the patient meet any 2 criteria? No. Patient's initial sepsis screen is negative. Does the patient have a suspected source of infection? No. Patient's initial sepsis screen is negative. Risk Assessment: Do you want to hurt yourself or someone else? Patient reports no desire to harm self or others. Onset of symptoms was January 31, 2024. 18:57 Method Of Arrival: Ambulatory as6 18:57 Acuity: KHADAR 3 as6 Triage Assessment: 18:59 General: Appears uncomfortable, Behavior is calm, cooperative. Pain: Complains of pain as6 in abdomen. Historical: - Allergies: 18:59 Cinnamon; as6 - PMHx: 18:59 Bipolar disorder; Anxiety; Pancreatitis; diabetes mellitus; Schizophrenia; as6 - PSHx: 18:59 Cholecystectomy; ear tubes; ear tuebes; L hand fingers SX; as6 - Immunization history:: Adult Immunizations up to date. - Infectious Disease History:: Denies. - Social history:: Smoking status: Patient denies any tobacco usage or history of. Screenin:00 [facility] ED Fall Risk Assessment (Adult) History of falling in the last 3 months, jj7 including since admission No falls in past 3 months (0 pts) Confusion or Disorientation No (0 pts) Intoxicated or Sedated No (0 pts) Impaired Gait No (0 pts) Mobility Assist Device Used No (0 pt) Altered Elimination No (0 pt) Score/Fall Risk Level 0 - 2 = Low Risk Oriented to surroundings, Maintained a safe environment, Educated pt \T\ family on fall prevention, incl call for assistance when getting out of bed. Abuse screen: Denies threats or abuse. Nutritional screening: No deficits noted. Tuberculosis screening: No symptoms or risk factors identified. Assessment: 22:00 General: Appears in no apparent distress. uncomfortable, Behavior is calm, cooperative, jj7 appropriate for age. Pain: Complains of pain in epigastric area, right upper quadrant and left upper quadrant. GI: Abdomen is non-distended, Bowel sounds present X 4 quads. Abdomen is tender to palpation in epigastric area, right upper quadrant and left upper quadrant. 22:00 Reassessment: ASSUMED CARE OF PT. PT SITTING IN BED. C/O ABD PAIN. VS STABLE. CALL CORONA [email or web address] IN REACH. WARM BLANKET PROVIDED. 01/31 02:30 Reassessment: PT'S O2 84% WHEN SLEEPING. EASILY AROUSED TO VERBAL STIMULI. PT STATES HE jj7 HAS SLEEP APNEA AND WEARS O2 SOMETIMES. APPLIED O2 FOR COMFORT. 02:31 Reassessment: SBAR FAXED TO 2ND FLOOR. RECEIVED BY ARIK DIAZ. jj7 Vital Signs: 01/30 18:57 BP 137 / 94; Pulse 87; Resp 18 S; Temp 97.3(TE); Pulse Ox 95% on R/A; Weight 121.56 kg as6 (R); Height 5 ft. 11 in. (R); Pain 8/10; 22:00 BP 144 / 90; Pulse 82; Resp 17; Pulse Ox 97% ; Pain 9/10; jj7 23:00 BP 145 / 75; Pulse 84; Resp 18; Pulse Ox 97% ; Pain 0/10; jj7 01/31 00:00 BP 127 / 86; Pulse 77; Resp 17; Pulse Ox 95% ; jj7 01:05 BP 115 / 74; Pulse 69; Resp 18; Pulse Ox 96% ; Pain 7/10; jj7 02:00 BP 134 / 93; Pulse 75; Resp 19; Pulse Ox 84% ; Pain 0/10; jj7 03:00 BP 122 / 79; Pulse 62; Resp 17; Pulse Ox 97% on NC; Pain 0/10; jj7 01/30 18:57 Body Mass Index 37.38 (121.56 kg, 180.34 cm) as6 01/30 18:57 Pain Scale: Adult as6 22:00 Pain Scale: Adult jj7 23:00 Pain Scale: Adult jj7 01:05 Pain Scale: Adult jj7 02:00 Pain Scale: Adult jj7 03:00 Pain Scale: Adult jj7 ED Course: 01/30 18:45 Patient arrived in ED. im 18:57 Arm band placed on left wrist. as6 18:59 Triage completed. as6 19:03 Wellington Garcia PA is PHCP. cp 19:03 Wellington Rios MD is Attending Physician. cp 21:47 Mikaela Chakraborty RN is Primary Nurse. jj7 22:00 Bed in low position. Call light in reach. Provided Education on: USE OF CALL CORONA. Warm jj7 blanket given. 22:05 Inserted saline lock: 20 gauge in left hand, using aseptic technique. Blood collected. jj7 22:10 CBC with Diff Sent. jj7 22:10 CMP Sent. jj7 22:10 Lipase Sent. jj7 22:10 Urinalysis w/ reflexes Sent. jj7 23:22 Inserted saline lock: 20 gauge in left forearm, using aseptic technique. jj7 23:27 CT Abd/Pelvis - IV Contrast Only In Process Unspecified. EDMS 01/31 00:46 Blood Culture Adult (2) Sent. jj7 00:46 Lactate w/ 2H reflex if indic. Sent. jj7 00:53 Benjamin Dugan MD is Hospitalizing Provider. cp 02:30 Oxygen administration via nasal cannula \T\ 2L/min Response to oxygen therapy: symptoms jj7 improved. 03:25 No provider procedures requiring assistance completed. Patient admitted, IV remains in jj7 place. Administered Medications: 01/30 22:05 Drug: NS 0.9% IV 1000 ml IV at 1 bolus Per protocol; 1000 mL bolus Route: IV; Rate: 1 jj7 bolus; Site: left hand; 23:10 Follow up: IV Status: Completed infusion jj7 22:05 Drug: Famotidine IVP 20 mg IVP once; dilute with 10 mL 0.9% NaCl; give over 2 minutes jj7 Route: IVP; Site: left hand; 22:30 Follow up: Response: Marked relief of symptoms jj7 22:05 Drug: TORadol - Ketorolac IVP 15 mg IVP once Route: IVP; Site: left hand; jj7 22:30 Follow up: Response: Marked relief of symptoms; Pain is decreased jj7 22:05 Drug: Ondansetron IVP 4 mg IVP once; over 2 minutes Route: IVP; Site: left hand; jj7 22:30 Follow up: Response: Marked relief of symptoms jj7 23:38 Drug: NS 0.9% IV 1000 ml IV at 1 bolus Per protocol; 1000 mL bolus Route: IV; Rate: 1 jj7 bolus; Site: left hand; 01/31 01:40 Follow up: IV Status: Completed infusion jj7 01:05 Drug: HYDROmorphone IVP 1 mg IVP once Route: IVP; Site: left hand; jj7 01:30 Follow up: Response: Marked relief of symptoms; Pain is decreased jj7 Medication: 01/30 22:00 VIS not applicable for this client. jj7 Outcome: 01/31 00:53 Decision to Hospitalize by Provider. cp 03:25 Admitted to Med/surg accompanied by tech, via wheelchair, room 231, Report called to daniel SBAR BY FAX TP 2ND FLOOR 03:25 Condition: improved 03:34 Patient left the ED. jj7 Signatures: Dispatcher [employer] EDMS Wellington Garcia PA PA cp Slawson, Ashby RN RN as6 Mikaela Chakraborty RN RN jj7 Mary Bustos Corrections: (The following items were deleted from the chart) 01/30 22:26 20:00 BP 144 / 90; Pulse 82bpm; Resp 17bpm; Pulse Ox 97%; Pain 9/10, Adult; jj7 jj7 01/31 04:04 04:03 Patient left the ED. jj7 jj7
--- NOTE | 2024-02-01 00:54 | EDPHYS ---
Physician Documentation [facility] Name: Joaquin Bustos II Age: 28 yrs Sex: Male : 1995 Arrival Date: 01/31/2024 Time: 18:42 Bed 19 Private MD: ED Physician Wellington Rios HPI: 01/30 19:10 This 28 yrs old Male presents to ER via Ambulatory with complaints of cp Abdominal Pain. 19:10 The patient presents with abdominal pain in the epigastric area, in the upper abdomen. cp Onset: The symptoms/episode began/occurred this morning. Associated signs and symptoms: Pertinent positives: nausea. Historical: - Allergies: 18:59 Cinnamon; as6 - PMHx: 18:59 Bipolar disorder; Anxiety; Pancreatitis; diabetes mellitus; Schizophrenia; as6 - PSHx: 18:59 Cholecystectomy; ear tubes; ear tuebes; L hand fingers SX; as6 - Immunization history:: Adult Immunizations up to date. - Infectious Disease History:: Denies. - Social history:: Smoking status: Patient denies any tobacco usage or history of. ROS: 19:15 Constitutional: Negative for body aches, chills, fever, poor PO intake, cp 19:15 Eyes: Negative for injury, pain, redness, and discharge, cp 19:15 ENT: Negative for drainage from ear(s), ear pain, sore throat, difficulty swallowing, difficulty handling secretions, 19:15 Cardiovascular: Negative for chest pain, edema, palpitations, 19:15 Respiratory: Negative for cough, shortness of breath, wheezing, 19:15 Abdomen/GI: Positive for abdominal pain, nausea, of the left upper quadrant and right upper quadrant and epigastric area, Negative for vomiting, diarrhea, constipation, 19:15 : Negative for urinary symptoms, flank pain, testicular pain 19:15 All other systems are negative, Exam: 19:20 Constitutional: The patient appears in no acute distress, alert, awake, cp non-diaphoretic, non-toxic, well developed, well nourished, obese, uncomfortable, 19:20 Head/Face: Normocephalic, atraumatic. cp 19:20 Eyes: Periorbital structures: appear normal, Conjunctiva: normal, Sclera: no appreciated abnormality, Lids and lashes: appear normal, bilaterally, 19:20 ENT: External ear(s): are unremarkable, Nose: is normal, Mouth: Lips: moist, Oral mucosa: pink and intact, moist, Posterior pharynx: Airway: no evidence of obstruction, patent, 19:20 Neck: ROM/movement: is normal, is supple, without pain, no range of motions limitations, 19:20 Chest/axilla: Inspection: normal, Palpation: is normal, no crepitus, no tenderness, 19:20 Cardiovascular: Rate: normal, Rhythm: regular, Edema: is not appreciated, JVD: is not appreciated, 19:20 Respiratory: the patient does not display signs of respiratory distress, Respirations: normal, no use of accessory muscles, no retractions, labored breathing, is not present, Breath sounds: are clear throughout, no decreased breath sounds, no stridor, no wheezing, 19:20 Abdomen/GI: Inspection: obese Bowel sounds: active, all quadrants, Palpation: soft, in all quadrants, moderate abdominal tenderness, in the epigastric area, right upper quadrant and left upper quadrant, rebound tenderness, is not appreciated, voluntary guarding, is elicited in the epigastric area, right upper quadrant and left upper quadrant, 19:20 Back: CVA tenderness, is absent, 19:20 Neuro: Orientation: to person, place \T\ time. Mentation: is normal, Vital Signs: 18:57 BP 137 / 94; Pulse 87; Resp 18 S; Temp 97.3(TE); Pulse Ox 95% on R/A; Weight 121.56 kg as6 (R); Height 5 ft. 11 in. (R); Pain 8/10; 22:00 BP 144 / 90; Pulse 82; Resp 17; Pulse Ox 97% ; Pain 9/10; jj7 23:00 BP 145 / 75; Pulse 84; Resp 18; Pulse Ox 97% ; Pain 0/10; jj7 05/01 00:00 BP 127 / 86; Pulse 77; Resp 17; Pulse Ox 95% ; jj7 01:05 BP 115 / 74; Pulse 69; Resp 18; Pulse Ox 96% ; Pain 7/10; jj7 02:00 BP 134 / 93; Pulse 75; Resp 19; Pulse Ox 84% ; Pain 0/10; jj7 03:00 BP 122 / 79; Pulse 62; Resp 17; Pulse Ox 97% on NC; Pain 0/10; jj7 01/30 18:57 Body Mass Index 37.38 (121.56 kg, 180.34 cm) as6 01/30 18:57 Pain Scale: Adult as6 22:00 Pain Scale: Adult jj7 23:00 Pain Scale: Adult jj7 01:05 Pain Scale: Adult jj7 02:00 Pain Scale: Adult jj7 03:00 Pain Scale: Adult jj7 MDM: 01/30 19:06 Patient medically screened. susanne 21:00 Differential diagnosis: appendicitis, diverticulitis, gastritis, gastroesophageal cp reflux disease, GI Bleed, non-specific abd pain, pancreatitis, Peptic Ulcer Disease, Perf. Duodenal Ulcer, Perf. Gastric Ulcer, Pyelonephritis, Ureterolithiasis, urinary tract infection. 01/31 01:00 Data reviewed: vital signs, nurses notes, lab test result(s), radiologic studies, CT cp scan, and as a result, I will admit patient. 01:00 Management of patient was discussed with the following: Hospitalist: DR Dugan will cp admit after discussion. I considered the following discharge prescriptions or medication management in the emergency department Medications were administered in the Emergency Department. See MAR. Counseling: I had a detailed discussion with the patient and/or guardian regarding the historical points, exam findings, and any diagnostic results supporting the discharge/admit diagnosis, lab results, radiology results, the need for further work-up and treatment in the hospital. Response to treatment: the patient's symptoms have mildly improved after treatment. 01/30 19:04 Order name: CBC with Diff; Complete Time: 23:00 cp 01/30 19:04 Order name: CMP; Complete Time: 23:00 cp 01/30 19:04 Order name: Lipase; Complete Time: 23:00 cp 01/30 19:04 Order name: Urinalysis w/ reflexes; Complete Time: 23:00 cp 01/30 23:01 Order name: Lactate w/ 2H reflex if indic. cp 01/30 23:01 Order name: Blood Culture Adult (2) cp 01/31 02:08 Order name: Urinalysis w/ reflexes EDMS 01/31 02:08 Order name: CBC with Automated Diff EDMS 01/31 02:08 Order name: CBC with Automated Diff EDMS 01/31 02:08 Order name: Comprehensive Metabolic Panel EDMS 01/31 02:08 Order name: Comprehensive Metabolic Panel [facility] 01/30 20:34 Order name: CT Abd/Pelvis - IV Contrast Only cp 01/30 19:04 Order name: IV Saline Lock; Complete Time: 22:10 cp 01/30 19:04 Order name: Labs collected and sent; Complete Time: 22:10 cp Administered Medications: 01/30 22:05 Drug: NS 0.9% IV 1000 ml IV at 1 bolus Per protocol; 1000 mL bolus Route: IV; Rate: 1 jj7 bolus; Site: left hand; 23:10 Follow up: IV Status: Completed infusion j7 22:05 Drug: Famotidine IVP 20 mg IVP once; dilute with 10 mL 0.9% NaCl; give over 2 minutes j7 Route: IVP; Site: left hand; 22:30 Follow up: Response: Marked relief of symptoms jj7 22:05 Drug: TORadol - Ketorolac IVP 15 mg IVP once Route: IVP; Site: left hand; jj7 22:30 Follow up: Response: Marked relief of symptoms; Pain is decreased jj7 22:05 Drug: Ondansetron IVP 4 mg IVP once; over 2 minutes Route: IVP; Site: left hand; jj7 22:30 Follow up: Response: Marked relief of symptoms jj7 23:38 Drug: NS 0.9% IV 1000 ml IV at 1 bolus Per protocol; 1000 mL bolus Route: IV; Rate: 1 jj7 bolus; Site: left hand; 01/31 01:40 Follow up: IV Status: Completed infusion jj7 01:05 Drug: HYDROmorphone IVP 1 mg IVP once Route: IVP; Site: left hand; jj7 01:30 Follow up: Response: Marked relief of symptoms; Pain is decreased jj7 Disposition Summary: 02/01/24 00:53 Hospitalization Ordered Notes: Hospitalization Status: Inpatient Admission cp Provider: Benjamin Dugan cp [facility] cp Condition: Stable cp Problem: new cp Symptoms: have improved cp Bed/Room Type: Standard Room Assignment: 231(02/01/24 02:12) rv1 Diagnosis - Acute pancreatitis without necrosis or infection, unspecified cp Forms: - Medication Reconciliation Form cp - SBAR form cp - Leadership Thank You Letter cp Signatures: Dispatcher [employer] EDWellington Arrington MD MD cha Page, Corey, PA PA cp Slawson, Ashby, RN RN as6 Mikaela Chakraborty RN RN jj7 Goldie Garcias rv1 Corrections: (The following items were deleted from the chart) 01/30 23:02 23:02 LACTATE+C.LAB.BRZ ordered. EDMS EDMS 23: 23:02 BLOOD CULTURE*+BA.LAB.BRZ ordered. EDMS EDMS 01/31 02:12 00:53 cp rv1
[2024-02-01] MEDS ORDERED: HYDROMORPHONE HCL 1 MG/ML INJ ONE (01:02)
[2024-02-01] MEDS ORDERED: ACETAMINOPHEN 325 MG TABLET PO PRN (02:03)
[2024-02-01] MEDS ORDERED: ONDANSETRON 4 MG/2 ML VIAL IV PRN (02:03)
[2024-02-01] MEDS ORDERED: MORPHINE 2 MG/ML SYR IV PRN (02:06)
--- NOTE | 2024-02-01 02:08 | P.HP ---
Certification for Inpatient Patient admitted to: Inpatient With expected LOS: >2 Midnights Practitioner: I am a practitioner with admitting privileges, knowledge of patient current condition, hospital course, and medical plan of care. Services: Services provided to patient in accordance with Admission requirements found in Title 42 Section 412.3 of the Code of Federal Regulations Patient History Date of Service: 02/01/24 Reason for admission: Abdominal pain History of Present Illness: 28-year-old male with past medical history of pancreatitis, diabetes, obesity, childhood asthma who came to ER with abdominal pain which has been going on for the last 2 days and has been closely worsening and was brought to ER. Associated with some nausea but no vomiting. No fever or chills. No diarrhea. No sick contacts. Patient has a previous history of pancreatitis. Pain is very similar to the previous episodes of pancreatitis. Patient denies any alcohol intake. Patient was assessed in the ER and was admitted for further management of acute on chronic pancreatitis Allergies No Known Allergies Allergy (Unverified 08/21/12 21:39) Home medications list reviewed: Yes Home Medications: Fenofibrate [Tricor*] 1 tab PO DAILY 01/03/23 Tramadol HCl [Ultram] 50 mg PO TID PRN 01/03/23 Alcohol Antiseptic Pads [Alcohol Prep Pads] 1 each TP DAILY #1 box 01/06/23 Blood Sugar Diagnostic [Blood Glucose Test] 1 each MC DAILY #30 strip 01/06/23 Blood-Glucose Meter [Blood Glucose Monitoring] 1 each MC DAILY #1 kit 01/06/23 Insulin Glargine,Hum.rec.anlog [Lantus Solostar] 25 unit SQ DAILY #15 ml 01/06/23 Metformin ER [Glucophage ER*] 1 tab PO BIDWM #60 tab.sa 01/06/23 Pen Needle, Diabetic [[place]] 1 each MC DAILY #100 units 01/06/23 - Past Medical/Surgical History Diabetic: No Past Medical History: Reviewed- Non-Contributory -: Childhood asthma -: Obesity -: Pancreatitis -: DM2 Past Surgical History: Reviewed- Non-Contributory -: Cholecystectomy -: Appendectomy -: Ear tubes placed as a child Psychosocial/ Personal History: He is single. He has no children. He works at [employer]. - Family History Family History: Reviewed- Non-Contributory - Family History Father -: Hypertension, Diabetes Mother -: Hypertension - Social History Smoking Status: Never smoker Alcohol use: Yes Caffeine use: Yes Review of Systems 10-point ROS is otherwise unremarkable Physical Examination - Vital Signs Temperature: 98.2 F Blood Pressure: 136/90 Pulse: 78 Respirations: 18 Pulse Ox (%): 94 - Physical Exam General: Alert, Oriented x3, Moderate distress, Obese HEENT: Atraumatic, Normocephalic Neck: Supple, 2+ carotid pulse no bruit Respiratory: Clear to auscultation bilaterally, Normal air movement Cardiovascular: Regular rate/rhythm, Normal S1 S2, No gallops Capillary refill: <2 Seconds Gastrointestinal: Non-distended, W/out hepatosplenomegaly, No masses, Tenderness Musculoskeletal: No clubbing, No swelling Integumentary: No rashes, No breakdown Neurological: Normal speech, Normal strength at 5/5 x4 extr, Cranial nerves 3-12 intact, Normal reflexes 2+, Normal affect Lymphatics: No axilla or inguinal lymphadenopathy - Studies Laboratory Data (last 24 hrs) 01/31/24 01/31/24 22:05 22:05 WBC 12.90 H Hgb 14.8 Hct 42.4 Plt Count 278 Sodium 135 L Potassium 3.4 L BUN 10 Creatinine 0.92 Glucose 109 H Total Bilirubin 0.5 AST 50 H ALT 126 H Alkaline Phosphatase 57 Lipase 710 H Assessment and Plan - Problems (Diagnosis) (1) Acute on chronic pancreatitis Current Visit: Yes Status: Acute (2) Elevated liver function tests Onset Date: 06/25/16 Current Visit: No Status: Acute (3) Hypertriglyceridemia Onset Date: 06/25/16 Current Visit: No Status: Acute Plan: Acute on chronic pancreatitis N.p.o. for now Started on aggressive hydration Pain control Zofran as needed CT suggestive of pancreatic inflammation Will get the triglyceride level Hypertriglyceridemia Continue antilipid medications Continue aggressive hydration Diabetes Insulin sliding scale Accu-Chek before every meal and at bedtime Will get an A1c in a.m. Hypokalemia Hyponatremia Continue IV fluids Correct electrolytes Elevated LFTs Monitor LFTs closely CT abdomen pelvis final report pending Leukocytosis No fever or chills Will get a lactic acid level Monitor CBC GI/DVT prophylaxis Advanced directive full code Discharge Plan: Home Plan to discharge in: 48 Hours - Advance Directives Does patient have a Living Will: No Does patient have a Durable POA for Healthcare: No - Code Status/Comfort Care Code Status: Full Code Time Spent Managing Pts Care (In Minutes): 48
[2024-02-01] MEDS ORDERED: GLUCAGON 1 MG/VIAL IM PRN (04:42)
[2024-02-01] MEDS ORDERED: D50W 25 GM/50 ML SYRINGE IV PRN (04:42)
[2024-02-01] MEDS ORDERED: D10W 125 ML IV PRN (04:46)
[2024-02-01] MEDS: Ringers Lactate 1,000 ML IV SCH (05:21)
[2024-02-01] MEDS: INSULIN REGULAR (HUMAN) 100 UNIT/ML SQ SCH (07:30)
[2024-02-01 08:32] VITALS: BMI 40.0
[2024-02-01] MEDS: MORPHINE 4 MG/ML SYR IV PRN (08:54)
[2024-02-01] MEDS: ENOXAPARIN 40 MG/0.4 ML SQ SCH (08:55)
--- NOTE | 2024-02-01 11:30 | RAD REPORT ---
EXAM DESCRIPTION: MRI - Cholangiogram - 02/01/2024 10:03 am CLINICAL HISTORY: pancreatitis COMPARISON: Cholangiogram dated 06/25/2016; MRICHOLANGIOGRAM dated 04/30/2013; Abdomen Pelvis W Cont rast dated 01/31/2024 TECHNIQUE: Multiplanar multisequence MRI of the abdomen, obtained without IV contrast, utilizing M [employer] sequences. FINDINGS: Status post cholecystectomy. No intrahepatic biliary ductal dilation. Common bile duct is normal in caliber, 6 millimeter. No filling defects to suggest choledocholithiasi s. Smooth tapering at the ampulla. Main pancreatic duct is not dilated. The visualized aspects of the liver, spleen, adrenal glands, and kidneys are unremarkable. Mild johnie atous changes suspected along the body and tail of the pancreas, better appreciated on the prior CT. Visualized aspects of the bowel are unremarkable. No suspicious osseous lesions. Visualized aspects of the lung bases are unremarkable. IMPRESSION: Normal MR cholangiogram. Status post cholecystectomy. Mild edematous changes suspected along the body and tail of the pancreas, better appreciated on the p rior CT.
[2024-02-01 12:06] LABS: HDL Cholesterol 33 mg/dL (40-60)
[2024-02-01 12:18] LABS: LDL, Direct 98 mg/dL (100-129)
--- NOTE | 2024-02-01 12:29 | RAD REPORT ---
EXAM DESCRIPTION: CT - Abdomen Pelvis W Contrast - 02/01/2024 6:48 am CLINICAL HISTORY: Upper abdomen pain COMPARISON: None Available. TECHNIQUE: CT of the abdomen and pelvis performed following IV administration of iodinated contras t. This exam was performed according to our departmental dose-optimization program, which includes au tomated exposure control, adjustment of the mA and/or kV according to patient size and/or use of iter ative reconstruction technique. FINDINGS: Lung Bases: Minimal dependent atelectasis. Bones: No acute osseous abnormality identified. Abdomen: Liver: Hepatomegaly with diffusely decreased density. Gallbladder: Prior cholecystectomy. Spleen, Pancreas, and Adrenal Glands: Splenomegaly. Mild peripancreatic fat stranding. The adrenal glands are unremarkable. Kidneys: No hydronephrosis or obstructing calculus. Vasculature: The aorta and IVC have normal caliber and position. The portal vein is patent. The pro ximal visceral and renal arteries are patent. Stomach: The stomach and duodenum have normal course. Other: No free intraperitoneal air. No free fluid or lymphadenopathy. Pelvis: Bladder: Urinary bladder is unremarkable. Bowel: No dilated loops of large or small bowel. Appendix: Normal appendix. Pelvis: Prostate is not enlarged. IMPRESSION: 1. Mild peripancreatic fat stranding. This could be seen with acute pancreatitis. Sahra elation with serum lipase recommended. 2. Hepatomegaly and hepatic steatosis. 3. Splenomegaly. Electronically signed by: Chilo Bernardo DO 02/01/2024 12:14 AM CDT M Due to temporary technical issues with the PACS/Fluency reporting system, reports are being signed by the in house radiologist without review as a courtesy to ensure prompt reporting. The interpreting r adiologist is fully responsible for the content of the report.
[2024-02-01] MEDS: DOCOSAHEXANOIC AC/EPA 1000 MG PO SCH (14:31)
[2024-02-01] MEDS: FENOFIBRATE 160 MG TAB PO ONE (14:32)
[2024-02-01 18:30] LABS: Specific Gravity 1.008 (1.005-1.030); Urine Bilirubin NEGATIVE (Negative); Urine Blood Negative (Negative); Urine Clarity Clear (Clear); Urine Color Colorless (Yellow); Urine Glucose NEGATIVE (Negative); Urine Ketones NEGATIVE (Negative); Urine Microscopic Reflex YN NO UMIC; Urine Nitrite NEGATIVE (Negative); Urine Protein NEGATIVE (Negative); Urine Urobilinogen Normal (Normal)
[2024-02-01] MEDS ORDERED: DOCOSAHEXANOIC AC/EPA 1000 MG PO SCH (21:00)
[2024-02-02 07:13] LABS: Absolute Eosinophils 0.2 K/uL (0-0.5); Absolute Lymphocytes (CBC) 1.8 K/uL (0.7-4.9); Absolute Monocytes 0.6 K/uL (0.1-1.3); Absolute Neutrophil 4.8 K/uL (1.8-8.0); Basophils % 0.6 % (0-1.3); Eosinophils % 2.5 % (0-4.4); Hematocrit 40.2 % (39.6-49.0); Hemoglobin 13.7 g/dL (13.6-17.9); Lymphocytes % 23.9 % (15.3-44.8); MCH 29.5 pg (27.0-35.0); MCV 86.6 fL (80-100); MPV 9.1 fL (7.6-11.3); Monocytes % 8.5 % (3.3-12.3); Neutrophils % 64.5 % (41.7-73.7); Nucleated Red Blood Cells % 0.1 % (0-0); Platelets 248 thou/uL (152-406); RBC Red Blood Cell Count 4.63 M/uL (4.33-5.43); Red Cell Distribution Width 12.9 % (12.1-15.2)
[2024-02-02 07:47] LABS: Albumin 3.2 g/dL (3.4-5.0); Albumin/Globulin Ratio 0.8 (1.1-1.8); Anion Gap 7.4 mEq/L (5.0-15.0); Bilirubin Total 0.6 mg/dL (0.2-1.0); Globulin 4.1 g/dL (2.3-3.5); Phosphorus 3.2 mg/dL (2.5-4.9); Potassium 3.4 mEq/L (3.5-5.1); Protein, Total 7.3 g/dL (6.4-8.2)
[2024-02-02] MEDS: FENOFIBRATE 160 MG TAB PO SCH (08:54)
[2024-02-02] MEDS: POTASSIUM CL SA 10 MEQ TAB PO ONE (09:15)
[2024-02-02] MEDS: Ringers Lactate 1,000 ML IV SCH (17:04)
--- NOTE | 2024-02-02 17:17 | P.PN ---
Subjective Date of Service: 02/05/24 Chief Complaint: Abdominal pain Admitted with acute pancreatitis, no reported fever or chills, reports nausea but no vomiting IV fluids for aggressive hydration, as needed analgesics Advance diet as tolerated Physical Exam General: Alert, Oriented x3, Moderate distress, Obese HEENT: Atraumatic, Normocephalic Neck: Supple, 2+ carotid pulse no bruit Respiratory: Clear to auscultation bilaterally, Normal air movement Cardiovascular: Regular rate/rhythm, Normal S1 S2, No gallops Capillary refill: <2 Seconds Gastrointestinal: Non-distended, W/out hepatosplenomegaly, No masses, Tenderness Musculoskeletal: No clubbing, No swelling Integumentary: No rashes, No breakdown Neurological: Normal speech, Normal strength at 5/5 x4 extr, Cranial nerves 3-12 intact, Normal reflexes 2+, Normal affect Lymphatics: No axilla or inguinal lymphadenopathy Review of Systems Per HPI Physical Examination - Vital Signs Temperature: 96.9 F Blood Pressure: 118/70 Pulse: 67 Respirations: 16 Pulse Ox (%): 92 Assessment And Plan - Plan Assessment and Plan Acute on chronic pancreatitis N.p.o. for now Started on aggressive hydration Pain control Zofran as needed CT suggestive of pancreatic inflammation Will get the triglyceride level Lipase 1228 Leukocytosis improved No fever or chills Will get a lactic acid level Monitor CBC Elevated liver function tests improving Hypertriglyceridemia Hypertriglyceridemia Continue antilipid medications Continue aggressive hydration Elevated LFTs Monitor LFTs closely CT abdomen pelvis acute pancreatitis Diabetes Insulin sliding scale Accu-Chek before every meal and at bedtime Will get an A1c in a.m. Will resume insulin patient is p.o. Lantus 20 twice daily Hypokalemia Hyponatremia Continue IV fluids Correct electrolytes GI/DVT prophylaxis Advanced directive full code Discharge Plan: Home - Code Status/Comfort Care Code Status: Full Code Critical Care: No Time Spent Managing PTS Care (In Minutes): 35
[2024-02-02] MEDS: NA CHLORIDE 0.9% 500 ML IV ONE (17:45)
[2024-02-03 01:15] VITALS: O2SAT 95
[2024-02-03 10:03] LABS: Albumin 3.4 g/dL (3.4-5.0); Albumin/Globulin Ratio 0.8 (1.1-1.8); Anion Gap 7.5 mEq/L (5.0-15.0); Bilirubin Total 0.5 mg/dL (0.2-1.0); Globulin 4.2 g/dL (2.3-3.5); Magnesium 2.4 mg/dL (1.6-2.4); Phosphorus 3.2 mg/dL (2.5-4.9); Potassium 3.5 mEq/L (3.5-5.1); Protein, Total 7.6 g/dL (6.4-8.2)
[2024-02-03 10:04] LABS: Absolute Basophils 0.1 K/uL (0-0.5); Absolute Eosinophils 0.2 K/uL (0-0.5); Absolute Monocytes 0.7 K/uL (0.1-1.3); Absolute Neutrophil 4.8 K/uL (1.8-8.0); Basophils % 0.9 % (0-1.3); Hematocrit 40.7 % (39.6-49.0); Hemoglobin 13.9 g/dL (13.6-17.9); Lymphocytes % 26.1 % (15.3-44.8); MCH 29.3 pg (27.0-35.0); MCHC 34.1 g/dL (32.0-36.0); MPV 8.7 fL (7.6-11.3); Monocytes % 8.8 % (3.3-12.3); Neutrophils % 62.2 % (41.7-73.7); Platelets 256 thou/uL (152-406); RBC Red Blood Cell Count 4.73 M/uL (4.33-5.43)
[2024-02-03] MEDS ORDERED: INSULIN GLARGINE 100 UNIT/ML SQ SCH (21:00)
--- NOTE | 2024-02-05 07:33 | P.DS ---
Admission Date: 02/01/24 Discharge Date: 02/05/24 Disposition: ROUTINE DISCHARGE Discharge Condition: GOOD Reason for Admission: Abdominal pain Brief History of Present Illness: 28-year-old male with past medical history of pancreatitis, diabetes, obesity, childhood asthma who came to ER with abdominal pain which has been going on for the last 2 days and has been closely worsening and was brought to ER. Associated with some nausea but no vomiting. No fever or chills. No diarrhea. No sick contacts. Patient has a previous history of pancreatitis. Pain is very similar to the previous episodes of pancreatitis. Patient denies any alcohol intake. Patient was assessed in the ER and was admitted for further management of acute on chronic pancreatitis - Physical Exam General: Alert, Oriented x3, Moderate distress, Obese HEENT: Atraumatic, Normocephalic Neck: Supple, 2+ carotid pulse no bruit Respiratory: Clear to auscultation bilaterally, Normal air movement Cardiovascular: Regular rate/rhythm, Normal S1 S2, No gallops Capillary refill: <2 Seconds Gastrointestinal: Non-distended, W/out hepatosplenomegaly, No masses, Tenderness Musculoskeletal: No clubbing, No swelling Integumentary: No rashes, No breakdown Neurological: Normal speech, Normal strength at 5/5 x4 extr, Cranial nerves 3-12 intact, Normal reflexes 2+, Normal affect Lymphatics: No axilla or inguinal lymphadenopathy Hospital Course: 28-year-old male ith past medical history of pancreatitis, diabetes, obesity, childhood asthma who came to ER with abdominal pain which has been going on for the last 2 days and has been closely worsening and was brought to ER. Associated with some nausea but no vomiting. He was noted to have acute pancreatitis, elevated liver enzymes, hypertriglyceridemia. He was placed on bowel rest, treated with as needed analgesics, aggressive hydration. Patient slowly advance diet, tolerated diet prior to discharge. Will need to follow-up with primary care physician outpatient. Assessment Acute on chronic pancreatitis-placed on bowel rest, treated with IV fluids, IV antibiotics, as needed analgesics. Improved Elevated triglyceride educated on low-cholesterol diet Elevated liver enzymes improved while inpatient Diabetes educated on diabetic diet Discharged home on Ultram, Tricor, fish oil 3 times daily for elevated Instructed to avoid alcohol, high-fat diet Laboratory evaluation Elevated lipase-improving CT of the abdomen pelvis CT suggestive of pancreatic inflammation Elevated liver enzymes improved while inpatient-return to normal Continue home medicines as previously prescribed GOAL: Clear understanding of disease process INSTRUCTIONS: Physician Discharge Instructions: -Follow-up with PCP in 1 to 2 weeks -Please call Dr. Alfred at [phone] if any questions regarding hospital stay -Please call nursing station at [phone] if any nursing or medication questions -Return to the emergency room if symptoms worsen Diet: ADA, low sodium Activity: Fall precautions Vital Signs/Physical Exam: Temp Pulse Resp BP Pulse Ox 97.7 F 76 18 136/86 97 02/03/24 16:00 02/03/24 16:00 02/03/24 16:00 02/03/24 16:00 02/03/24 16:00 Laboratory Data at Discharge: WBC 7.70 thou/uL (4.3-10.9) 02/03/24 07:31 Hgb 13.9 g/dL (13.6-17.9) 02/03/24 07:31 Hct 40.7 % (39.6-49.0) 02/03/24 07:31 Plt Count 256 thou/uL (152-406) 02/03/24 07:31 Sodium 138 mEq/L (136-145) 02/03/24 07:31 Potassium 3.5 mEq/L (3.5-5.1) 02/03/24 07:31 BUN 7 mg/dL (7-18) 02/03/24 07:31 Creatinine 0.79 mg/dL (0.70-1.30) 02/03/24 07:31 Glucose 115 mg/dL (74-106) H 02/03/24 07:31 Phosphorus 3.2 mg/dL (2.5-4.9) 02/03/24 07:31 Magnesium 2.4 mg/dL (1.6-2.4) 02/03/24 07:31 Total Bilirubin 0.5 mg/dL (0.2-1.0) 02/03/24 07:31 AST 37 U/L (15-37) 02/03/24 07:31 ALT 97 U/L (16-61) H 02/03/24 07:31 Alkaline Phosphatase 55 U/L (45-117) 02/03/24 07:31 Triglycerides 569 mg/dL (<150) H 02/03/24 07:31 Cholesterol 252 mg/dL (<200) H 02/01/24 11:32 LDL Cholesterol Direct 98 mg/dL (100-129) L 02/01/24 11:32 HDL Cholesterol 33 mg/dL (40-60) L 02/01/24 11:32 Cholesterol/HDL Ratio 7.64 02/01/24 11:32 Lipase 842 U/L (13-75) H 02/03/24 07:31 Home Medications: Insulin Glargine,Hum.rec.anlog [Lantus Solostar] 25 unit SQ DAILY #15 ml 01/06/23 Pen Needle, Diabetic [Pen [place]] 1 each MC DAILY #100 units 01/06/23 Metformin ER [Glucophage ER*] 1 tab PO BID 02/01/24 Docosahexanoic AC/Epa [Fish Oil 1,000 MG*] 1,000 mg PO TID #90 cap 02/03/24 Fenofibrate [Tricor*] 160 mg PO DAILY #30 tab 02/03/24 traMADol HCL [Ultram*] 50 mg PO Q6H PRN #30 tab 02/03/24 New Medications: Docosahexanoic AC/Epa [Fish Oil 1,000 MG*] 1,000 mg PO TID #90 cap Fenofibrate [Tricor*] 160 mg PO DAILY #30 tab traMADol HCL [Ultram*] 50 mg PO Q6H PRN #30 tab PRN Reason: Pain Physician Discharge Instructions: -Follow-up with PCP in 1 to 2 weeks -Follow-up with GI, Dr. Guerrero, in 1 to 2 weeks -Please check labs-triglyceride in 1 month -Please call Dr. Alfred at [phone] if any questions regarding hospital stay -Please call nursing station at [phone] if any nursing or medication questions -Return to the emergency room if symptoms worsen -Please give pt pamphlet regarding low fat diet Diet: low fat Activity: Fall precautions Followup: NONE,NONE [Primary Care Provider] - Pedro Guerrero MD [ASSOCIATE-ACTIVE - CAN ADMIT] - Time spent managing pt's care (in minutes): 55
[2024-02-05 07:43] VITALS: BP 118/70; TEMP 96.9
== END 2024-02-03 17:44 | disposition home or self-care (01) | DRG 439 ==
LOC: ER 18:42 → ERHOLD 02-01 02:03 → 2ND 02-01 03:00
PROVIDERS: ADMIT Family Medicine; ATTEND Hospitalist
DX: K85.90 Acute pancreatitis without necrosis or infection, unspecified (principal); E87.1 Hypo-osmolality and hyponatremia; Z68.41 Body mass index [BMI] 40.0-44.9, adult; E66.9 Obesity, unspecified; K86.1 Other chronic pancreatitis; E78.1 Pure hyperglyceridemia; E87.6 Hypokalemia; E11.9 Type 2 diabetes mellitus without complications; D72.829 Elevated white blood cell count, unspecified; R79.89 Other specified abnormal findings of blood chemistry; Z79.4 Long term (current) use of insulin; Z79.84 Long term (current) use of oral hypoglycemic drugs; Z90.49 Acquired absence of other specified parts of digestive tract; Z91.018 Allergy to other foods; Z79.899 Other long term (current) drug therapy
CPT/HCPCS: 36415; 74177; 74181; 80053; 80061; 80069; 81001; 81003; 82947; 83036; 83605; 83690; 83735; 84100; 84478; 85025; 87040; 96361; 96374; 96375; 99285; J1170; J1650; J2405; J7030; J7040; J7120; Q9967

== ENCOUNTER 2024-04-09 23:51 | Emergency (ER) | payer OTHER, SELFPAY ==
[2024-04-10] MEDS ORDERED: ACETAMINOPHEN 500 MG TAB ONE (01:06)
[2024-04-10] MEDS ORDERED: KETOROLAC 30 MG/ML INJ ONE (01:06)
[2024-04-10] MEDS ORDERED: LIDOCAINE VISCOUS 2% 10ML ORAL SOLN ONE (01:07)
[2024-04-10 02:12] LABS: SARS-CoV-2 Antigen CONTROL BLUE LINE VIS/BG OK
[2024-04-10 02:13] LABS: SARS-CoV-2 Antigen Rapid Res Negative (Negative)
--- NOTE | 2024-04-10 03:07 | ER ---
Nurse's Notes [facility] Name: Joaquin Bustos II Age: 28 yrs Sex: Male : 1995 Arrival Date: 04/09/2024 Time: 23:51 Bed 11 Private MD: Diagnosis: Acute upper respiratory infection, unspecified Presentation: 04/10 00:40 Chief complaint: Patient states: have had sore throat and ear pain for the last 4 to 5 jp4 days. Difficult to swallow due to pain. Coronavirus screen: Vaccine status: Patient reports being unvaccinated. Ebola Screen: Patient negative for fever greater than or equal to 101.5 degrees Fahrenheit, and additional compatible Ebola Virus Disease symptoms Patient denies exposure to infectious person. Patient denies travel to an Ebola-affected area in the 21 days before illness onset. No symptoms or risks identified at this time. Initial Sepsis Screen: Does the patient meet any 2 criteria? No. Patient's initial sepsis screen is negative. Does the patient have a suspected source of infection? No. Patient's initial sepsis screen is negative. Risk Assessment: Do you want to hurt yourself or someone else? Patient reports no desire to harm self or others. Onset of symptoms was April 05, 2024. 00:40 Method Of Arrival: Ambulatory jp4 00:40 Acuity: KHADAR 4 jp4 Triage Assessment: 00:42 General: Appears in no apparent distress. Behavior is calm, flat. Pain: Complains of jp4 pain in throat. EENT: Reports pain when swallowing. Neuro: Level of Consciousness is awake, alert, obeys commands, Oriented to person, place, time, situation. Cardiovascular: No deficits noted. Respiratory: No deficits noted. Airway is patent Trachea midline Respiratory effort is even, unlabored, Respiratory pattern is regular, symmetrical. Musculoskeletal: No deficits noted. Historical: - Allergies: 00:42 Cinnamon; jp4 - Home Meds: 00:42 Metformin Oral [Active]; jp4 - PMHx: 00:42 Anxiety; Bipolar disorder; diabetes mellitus; Pancreatitis; Schizophrenia; jp4 - PSHx: 00:42 Cholecystectomy; ear tubes; ear tuebes; L hand fingers SX; jp4 - Immunization history:: Adult Immunizations unknown. - Infectious Disease History:: Denies. - Social history:: Patient/guardian denies using alcohol, street drugs, IV drugs, over the counter diet medications, tobacco products, The patient lives at home. - Family history:: not pertinent. Screenin:47 [facility] ED Fall Risk Assessment (Adult) History of falling in the last 3 months, jp4 including since admission No falls in past 3 months (0 pts) Confusion or Disorientation No (0 pts) Intoxicated or Sedated No (0 pts) Impaired Gait No (0 pts) Mobility Assist Device Used No (0 pt) Altered Elimination No (0 pt) Score/Fall Risk Level 0 - 2 = Low Risk. Abuse screen: Denies threats or abuse. Denies injuries from another. Nutritional screening: No deficits noted. Tuberculosis screening: No symptoms or risk factors identified. Assessment: 00:47 Neuro: No deficits noted. Level of Consciousness is awake, alert, obeys commands, jp4 Oriented to person, place, time, situation. Respiratory: No deficits noted. Airway is patent Trachea midline Respiratory effort is even, unlabored, Respiratory pattern is regular, symmetrical. Musculoskeletal: No deficits noted. 03:14 Reassessment: Patient appears in no apparent distress at this time. Patient and/or jb4 family updated on plan of care and expected duration. Pain level reassessed. Patient is alert, oriented x 3, equal unlabored respirations, skin warm/dry/pink. Vital Signs: 00:40 BP 143 / 102; Pulse 96; Resp 20; Temp 98.3; Pulse Ox 96% ; Weight 131.09 kg; Height 5 jp4 ft. 11 in. ; Pain 10/10; 00:40 Body Mass Index 40.31 (131.09 kg, 180.34 cm) jp4 00:40 Pain Scale: Adult jp4 00:40 pain in throat and swallowing jp4 ED Course: 04/09 23:54 Patient arrived in ED. rg4 04/10 00:12 Valorie Dunbar PA-C is PHCP. sb4 00:12 Deedee Mujica MD is Attending Physician. sb4 00:42 Triage completed. jp4 00:42 Arm band placed on right wrist. jp4 00:47 Patient has correct armband on for positive identification. Allergy band placed. Verbal jp4 reassurance given. 01:01 COVID swab sent to lab. Flu and/or RSV swab sent to lab. Strep swab sent to lab. oe 01:02 Strep Sent. oe 01:02 Flu Sent. oe 01:02 SARS RAPID Sent. oe 03:14 Provided Education on: discharge instructions.. jb4 03:14 No provider procedures requiring assistance completed. Patient did not have IV access jb4 during this emergency room visit. Administered Medications: :19 Drug: Acetaminophen PO 1000 mg PO once Route: PO; kb3 :19 Drug: Viscous Lidocaine Mucous Membrane Liquid (4 %) 5 ml Mucous Membrane once Route: kb3 Mucous Membrane; : Drug: Ketorolac IM 30 mg IM once Route: IM; Site: left deltoid; kb3 Medication: 03:14 VIS not applicable for this client. jb4 Outcome: 03:07 Discharge ordered by . sb4 03:14 Discharged to home ambulatory, jb4 03:14 Condition: stable 03:14 Discharge instructions given to patient, Instructed on discharge instructions, follow up and referral plans. Demonstrated understanding of instructions, follow-up care, 03:19 Patient left the ED. jb4 Signatures: Imani Best rg4 Roberto Valiente, RN RN jb4 Tal Peng Kelly, RN RN kb3 Valorie Dunbar, PA-C PA-C sb4 Jamin Ren, RN RN jp4
--- NOTE | 2024-04-10 03:07 | EDPHYS ---
Physician Documentation [facility] Name: Joaquin Bustos II Age: 28 yrs Sex: Male : 1995 Arrival Date: 04/09/2024 Time: 23:51 Bed 11 Private MD: ED Physician Deedee Mujica HPI: 04/10 00:50 This 28 yrs old Male presents to ER via Ambulatory with complaints of flu sb4 symptoms. 00:50 sore throat, nasal congestion, ear pain x 4-5 days. been taking OTC medications- sb4 ibuprofen, throat spray, mucinex- without significant relief. states it's too painful to swallow now. denies any fever. denies sick contacts. no cough or GI symptoms. history of controlled diabetes. Historical: - Allergies: 00:42 Cinnamon; jp4 - Home Meds: 00:42 Metformin Oral [Active]; jp4 - PMHx: 00:42 Anxiety; Bipolar disorder; diabetes mellitus; Pancreatitis; Schizophrenia; jp4 - PSHx: 00:42 Cholecystectomy; ear tubes; ear tuebes; L hand fingers SX; jp4 - Immunization history:: Adult Immunizations unknown. - Infectious Disease History:: Denies. - Social history:: Patient/guardian denies using alcohol, street drugs, IV drugs, over the counter diet medications, tobacco products, The patient lives at home. - Family history:: not pertinent. ROS: 00:50 Constitutional: Negative for fever, chills, and weight loss, sb4 00:50 Constitutional: Positive for body aches, 00:50 ENT: Positive for ear pain, sore throat, Nasal congestion, Exam: 00:50 Head/Face: Normocephalic, atraumatic. Eyes: Extra-ocular motions intact. Periorbital sb4 areas with no swelling, redness, or edema. Cardiovascular: Regular rate and rhythm with a normal S1 and S2. Respiratory: Lungs have equal breath sounds bilaterally, clear to auscultation and percussion. No rales, rhonchi or wheezes noted. No increased work of breathing, no retractions or nasal flaring. Skin: Warm, dry with normal turgor. Normal color with no rashes, no lesions, and no evidence of cellulitis. MS/ Extremity: Pulses equal, no cyanosis. Neurovascular intact. Full, normal range of motion. 00:50 Constitutional: The patient appears alert, awake, obese, uncomfortable, 00:50 ENT: Ear canal(s): erythema, that is moderate, bilaterally, TM's: are normal, no acute changes, Posterior pharynx: Tonsils: absent, erythema, that is moderate, exudate, is not appreciated, Vital Signs: 00:40 BP 143 / 102; Pulse 96; Resp 20; Temp 98.3; Pulse Ox 96% ; Weight 131.09 kg; Height 5 jp4 ft. 11 in. ; Pain 10; 00:40 Body Mass Index 40.31 (131.09 kg, 180.34 cm) jp4 00:40 Pain Scale: Adult jp4 00:40 pain in throat and swallowing jp4 MDM: 00:16 Patient medically screened. sb4 03:03 Data reviewed: vital signs, nurses notes, lab test result(s), and as a result, I will sb4 discharge patient. Care significantly affected by the following chronic conditions: Diabetes, Obesity. Counseling: I had a detailed discussion with the patient and/or guardian regarding the historical points, exam findings, and any diagnostic results supporting the discharge/admit diagnosis, lab results, to return to the emergency department if symptoms worsen or persist or if there are any questions or concerns that arise at home. 04/10 00:50 Order name: SARS RAPID; Complete Time: 02:16 sb4 04/10 00:50 Order name: Flu sb4 04/10 00:50 Order name: Strep; Complete Time: 02:43 sb4 04/10 02:41 Order name: Throat Culture EDMS Administered Medications: 01:19 Drug: Acetaminophen PO 1000 mg PO once Route: PO; kb3 01:19 Drug: Viscous Lidocaine Mucous Membrane Liquid (4 %) 5 ml Mucous Membrane once Route: kb3 Mucous Membrane; 01:19 Drug: Ketorolac IM 30 mg IM once Route: IM; Site: left deltoid; kb3 Disposition Summary: 04/10/24 03:07 Discharge Ordered Notes: Location: Home sb4 Problem: new sb4 Symptoms: have improved sb4 Condition: Stable sb4 Diagnosis - Acute upper respiratory infection, unspecified sb4 Followup: sb4 - With: Emergency Department - When: As needed - Reason: Trouble breathing, Worsening of condition Discharge Instructions: - Discharge Summary Sheet sb4 - Upper Respiratory Infection, Adult, [id number] sb4 Forms: - Antibiotic Education sb4 - Patient Portal Instructions sb4 - Leadership Thank You Letter sb4 Prescriptions: - Augmentin 875-125 mg Oral Tablet - take 1 tablet ORAL route every 12 hours for 10 days; 20 tablet; Refills: 0, sb4 Product Selection Permitted Signatures: Dispatcher [employer] EDMS Xiomara Duncan, RN RN kb3 Valorie Dunbar PAPatrick PAPatrick sb4 Jamin Ren, RN RN jp4 Corrections: (The following items were deleted from the chart) 00:50 00:50 SARS-COV-2 Antigen Rapid+I.LAB.BRZ ordered. EDMS EDMS 00:50 00:50 Influenza Screen (A \T\ B)+BA.LAB.BRZ ordered. EDMS EDMS 00:50 00:50 Group A Streptococcus Rapid Sc+BA.LAB.BRZ ordered. EDMS EDMS
[2024-04-10 03:32] VITALS: BP 143/102; TEMP 98.3; O2SAT 96
== END 2024-04-10 03:19 | disposition home or self-care (01) ==
LOC: ER 23:51
DX: J06.9 Acute upper respiratory infection, unspecified (principal); E11.9 Type 2 diabetes mellitus without complications; F41.9 Anxiety disorder, unspecified; K85.90 Acute pancreatitis without necrosis or infection, unspecified; Z11.52 Encounter for screening for COVID-19
CPT/HCPCS: 36415; 87070; 87081; 87804; 87811; 96372; 99284

== ENCOUNTER 2024-05-18 23:55 | Emergency (ER) | payer OTHER ==
--- NOTE | 2024-05-19 00:22 | EDPHYS ---
Physician Documentation [facility] Name: Joaquin Bustos II Age: 28 yrs Sex: Male : 1995 Arrival Date: 05/18/2024 Time: 23:55 Bed 15 Private MD: ED Physician Wolfgang Cortés HPI: 05/19 00:08 This 28 yrs old Male presents to ER via Unassigned with complaints of Abscess. cp 00:08 the patient presents with a swollen area of the lower abdomen. Onset: The cp symptoms/episode began/occurred over 1 month. Associated signs and symptoms: Pertinent positives: discharge, Pertinent negatives: fever. Historical: - Allergies: 00:17 Cinnamon; vc1 - Home Meds: 00:17 metformin 500 mg oral tablet 2 times per day [Active]; vc1 00:22 Glargine Subcutaneous 10 units daily [Active]; vc1 - PMHx: 00:17 Anxiety; Bipolar disorder; diabetes mellitus; Pancreatitis; Schizophrenia; vc1 - PSHx: 00:17 Cholecystectomy; ear tubes; ear tuebes; L hand fingers SX; vc1 - Immunization history:: Client reports having NOT received the Covid vaccine. - Infectious Disease History:: Denies. - Social history:: Smoking status: Patient denies any tobacco usage or history of. ROS: 00:09 Constitutional: Negative for body aches, chills, fever, poor PO intake, cp 00:09 Abdomen/GI: Negative for vomiting, diarrhea, constipation, 00:09 Skin: Positive for abscess, of the lower abdomen, 00:09 All other systems are negative, Exam: 00:10 Head/Face: Normocephalic, atraumatic. cp 00:10 Constitutional: The patient appears in no acute distress, alert, awake, non-toxic, well developed, well nourished, obese, 00:10 Respiratory: the patient does not display signs of respiratory distress, Respirations: normal, 00:10 Abdomen/GI: Inspection: obese mild erythema and swelling lower abdomen with small abscess, no drainage expressed at this time, 00:10 Neuro: Orientation: to person, place \T\ time. Mentation: is normal, Vital Signs: 00:15 BP 141 / 96; Pulse 81; Resp 15; Temp 98.6; Pulse Ox 99% ; Weight 127 kg; Height 5 ft. vc1 11 in. ; Pain 0/10; 00:15 Body Mass Index 39.05 (127.00 kg, 180.34 cm) vc1 00:15 Pain Scale: Adult vc1 MDM: 00:05 Patient medically screened. cp 00:20 Data reviewed: vital signs, nurses notes, and as a result, I will discharge patient. cp 00:20 Differential diagnosis: abscess, cellulitis, insect bite. Counseling: I had a detailed cp discussion with the patient and/or guardian regarding the historical points, exam findings, and any diagnostic results supporting the discharge/admit diagnosis, to return to the emergency department if symptoms worsen or persist or if there are any questions or concerns that arise at home. Administered Medications: No medications were administered Disposition Summary: 05/19/24 00:21 Discharge Ordered Notes: Location: Home cp Problem: new cp Symptoms: have improved cp Condition: Stable cp Diagnosis - Cutaneous abscess of abdominal wall cp Followup: cp - With: Private Physician - When: 2 - 3 days - Reason: Worsening of condition Discharge Instructions: - Discharge Summary Sheet cp - Skin Abscess cp Forms: - Medication Reconciliation Form cp - Antibiotic Education cp - Prescription Opioid Use cp - Patient Portal Instructions cp - Leadership Thank You Letter cp Prescriptions: - Bactrim DS 800-160 mg Oral Tablet - take 1 tablet ORAL route every 12 hours for 10 days; 20 tablet; Refills: 0, cp Product Selection Permitted Signatures: Wellington Garcia PA PA cp Calcote, Vanessa RN RN vc1 Corrections: (The following items were deleted from the chart) 00:22 00:17 Home Meds: Glargine 10 Units Oral daily; vc1 vc1
--- NOTE | 2024-05-19 00:22 | ER ---
Nurse's Notes [facility] Name: Joaquin Bustos II Age: 28 yrs Sex: Male : 1995 Arrival Date: 05/18/2024 Time: 23:55 Bed 15 Private MD: Diagnosis: Cutaneous abscess of abdominal wall Presentation: 05/19 00:15 Chief complaint: Patient states: spot on stomach has had for the last month or two. vc1 Coronavirus screen: Vaccine status: Patient reports receiving the 2nd dose of the covid vaccine. Client denies travel out of the [place] in the last 14 days. At this time, the client does not indicate any symptoms associated with coronavirus-19. Ebola Screen: Patient negative for fever greater than or equal to 101.5 degrees Fahrenheit, and additional compatible Ebola Virus Disease symptoms Patient denies exposure to infectious person. Patient denies travel to an Ebola-affected area in the 21 days before illness onset. No symptoms or risks identified at this time. Initial Sepsis Screen: Does the patient meet any 2 criteria? No. Patient's initial sepsis screen is negative. Does the patient have a suspected source of infection? No. Patient's initial sepsis screen is negative. Risk Assessment: Do you want to hurt yourself or someone else? Patient reports no desire to harm self or others. Onset of symptoms was May 19, 2024. 00:15 Method Of Arrival: Ambulatory vc1 00:15 Acuity: KHADAR 4 vc1 Triage Assessment: 00:24 General: Appears in no apparent distress. comfortable, obese, well groomed, well vc1 developed, well nourished, Behavior is calm, cooperative, appropriate for age. Pain: Denies pain. EENT: No deficits noted. No signs and/or symptoms were reported regarding the EENT system. Neuro: Level of Consciousness is awake, alert, obeys commands, Oriented to person, place, time, situation, Appropriate for age. Cardiovascular: Heart tones S1 S2 present Capillary refill < 3 seconds Patient's skin is warm and dry. Respiratory: Airway is patent Respiratory effort is even, unlabored, Respiratory pattern is regular, symmetrical, Breath sounds are clear bilaterally. GI: Abdomen is round non-distended, obese. : No deficits noted. No signs and/or symptoms were reported regarding the genitourinary system. Derm: Skin is intact, is healthy with good turgor, Skin is dry, Skin is normal, Skin temperature is warm Wound noted suprapubic area Abscess located on suprapubic area. Musculoskeletal: No deficits noted. No signs and/or symptoms reported regarding the musculoskeletal system. Circulation, motion, and sensation intact. Range of motion: intact in all extremities. Historical: - Allergies: 00:17 Cinnamon; vc1 - Home Meds: 00:17 metformin 500 mg oral tablet 2 times per day [Active]; vc1 00:22 Glargine Subcutaneous 10 units daily [Active]; vc1 - PMHx: 00:17 Anxiety; Bipolar disorder; diabetes mellitus; Pancreatitis; Schizophrenia; vc1 - PSHx: 00:17 Cholecystectomy; ear tubes; ear tuebes; L hand fingers SX; vc1 - Immunization history:: Client reports having NOT received the Covid vaccine. - Infectious Disease History:: Denies. - Social history:: Smoking status: Patient denies any tobacco usage or history of. Screenin:22 [facility] ED Fall Risk Assessment (Adult) History of falling in the last 3 months, vc1 including since admission No falls in past 3 months (0 pts) Confusion or Disorientation No (0 pts) Intoxicated or Sedated No (0 pts) Impaired Gait No (0 pts) Mobility Assist Device Used No (0 pt) Altered Elimination No (0 pt) Score/Fall Risk Level 0 - 2 = Low Risk Oriented to surroundings, Maintained a safe environment, Educated pt \T\ family on fall prevention, incl call for assistance when getting out of bed. Abuse screen: Denies threats or abuse. Nutritional screening: No deficits noted. Tuberculosis screening: No symptoms or risk factors identified. Assessment: 00:25 General: See triage assessment. vc1 Vital Signs: 00:15 BP 141 / 96; Pulse 81; Resp 15; Temp 98.6; Pulse Ox 99% ; Weight 127 kg; Height 5 ft. vc1 11 in. ; Pain 0/10; 00:15 Body Mass Index 39.05 (127.00 kg, 180.34 cm) vc1 00:15 Pain Scale: Adult vc1 ED Course: 00:01 Patient arrived in ED. jj6 00:05 Wellington Garcia PA is PHCP. cp 00:05 Wolfgang Cortés MD is Attending Physician. cp 00:17 Triage completed. vc1 00:23 Arm band placed on right wrist. vc1 00:23 Patient has correct armband on for positive identification. Bed in low position. Call vc1 light in reach. Pulse ox on. NIBP on. 00:26 Provided Education on: wound care. vc1 00:26 No provider procedures requiring assistance completed. Patient did not have IV access vc1 during this emergency room visit. 00:35 Mayuri Lamb, RN is Primary Nurse. pc2 Administered Medications: No medications were administered Medication: 00:23 VIS not applicable for this client. vc1 Outcome: 00:21 Discharge ordered by MD. cp 00:26 Discharged to home ambulatory, vc1 00:26 Condition: good 00:26 Discharge instructions given to patient, Instructed on discharge instructions, follow up and referral plans. medication usage, Demonstrated understanding of instructions, follow-up care, medications, Prescriptions given X 1, 00:36 Patient left the ED. pc2 Signatures: Wellington Garcia PA PA Luna Royal jj6 Jossy Suresh RN RN vc1 Mayuri Lamb, RN RN pc2 Corrections: (The following items were deleted from the chart) 00:22 00:17 Home Meds: Glargine 10 Units Oral daily; vc1 vc1
[2024-05-19 01:15] VITALS: BP 141/96; TEMP 98.6; O2SAT 99
== END 2024-05-19 00:36 | disposition home or self-care (01) ==
LOC: ER 23:55
DX: L02.211 Cutaneous abscess of abdominal wall (principal)
CPT/HCPCS: 99283

== ENCOUNTER 2024-10-11 06:35 | Emergency (ER) | payer OTHER ==
[2024-10-11 07:36] LABS: Absolute Basophils 0.1 K/uL (0-0.5); Absolute Eosinophils 0.1 K/uL (0-0.5); Absolute Lymphocytes (CBC) 2.4 K/uL (0.7-4.9); Absolute Monocytes 0.6 K/uL (0.1-1.3); Absolute Neutrophil 6.4 K/uL (1.8-8.0); Eosinophils % 1.5 % (0-4.4); Hematocrit 47.7 % (39.6-49.0); Hemoglobin 16.9 g/dL (13.6-17.9); Lymphocytes % 24.7 % (15.3-44.8); MCH 30.4 pg (27.0-35.0); MCHC 35.4 g/dL (32.0-36.0); MCV 85.9 fL (80-100); MPV 9.8 fL (7.6-11.3); Monocytes % 6.5 % (3.3-12.3); Neutrophils % 66.3 % (41.7-73.7); Nucleated Red Blood Cells % 0.2 % (0-0); Platelets 341 thou/uL (152-406); RBC Red Blood Cell Count 5.55 M/uL (4.33-5.43); Red Cell Distribution Width 12.6 % (12.1-15.2)
[2024-10-11] MEDS ORDERED: INSULIN REGULAR (HUMAN) 100 UNIT/ML ONE (07:40)
[2024-10-11] MEDS ORDERED: NA CHLORIDE 0.9% 1,000 ML ONE (07:41)
--- NOTE | 2024-10-11 07:55 | RAD REPORT ---
EXAMINATION: ONE VIEW CHEST XR CLINICAL INDICATION: Male, 28 years old.,CHEST PAIN TECHNIQUE: Frontal chest projection is submitted. Examination is limited by patient positioning and t echnique. COMPARISON: 01/04/2024 FINDINGS: The lungs are somewhat suboptimally inflated and clear. No pneumothorax or sizable effusion. The hea rt is normal in size. Mediastinal contours are unremarkable. IMPRESSION: No acute intrathoracic abnormalities.
[2024-10-11 09:07] LABS: ALT/SGPT 84 U/L (16-61); Albumin 3.7 g/dL (3.4-5.0); Albumin/Globulin Ratio 0.8 (1.1-1.8); Alkaline Phosphatase 83 U/L (45-117); Anion Gap 11.8 mEq/L (5.0-15.0); BUN Blood Urea Nitrogen 12 mg/dL (7-18); Bicarbonate 23 mEq/L (21-32); Bilirubin Total 0.2 mg/dL (0.2-1.0); Globulin 4.6 g/dL (2.3-3.5); Glomerular Filtration Rate 106 ml/min (=/>90); Glucose Level 343 mg/dL (74-106); Lipase 803 U/L (13-75); NT PRO-BNP 14 pg/mL (<125); Protein, Total 8.3 g/dL (6.4-8.2); Sodium Level 138 mEq/L (136-145); Troponin High Sensitivity 14.5 pg/mL (<58.9)
[2024-10-11 09:09] LABS: AST/SGOT 37 U/L (15-37); Bilirubin Direct < 0.2 mg/dL (0-0.2); Magnesium 2.4 mg/dL (1.6-2.4); Potassium 3.8 mEq/L (3.5-5.1)
--- NOTE | 2024-10-11 09:24 | ER ---
Nurse's Notes [facility] Name: Joaquin Bustos II Age: 28 yrs Sex: Male : 1995 Arrival Date: 10/11/2024 Time: 06:35 Bed 17 Private MD: Diagnosis: Hyperglycemia, unspecified Presentation: 10/11 06:50 Chief complaint: Patient states: Frequent urination, blurred vision. Last time sugar vc1 was high. Out of diabetes medicine. Coronavirus screen: Client denies travel out of the [place] in the last 14 days. At this time, the client does not indicate any symptoms associated with coronavirus-19. Ebola Screen: Patient negative for fever greater than or equal to 101.5 degrees Fahrenheit, and additional compatible Ebola Virus Disease symptoms Patient denies exposure to infectious person. Patient denies travel to an Ebola-affected area in the 21 days before illness onset. No symptoms or risks identified at this time. Initial Sepsis Screen: Does the patient meet any 2 criteria? No. Patient's initial sepsis screen is negative. Does the patient have a suspected source of infection? No. Patient's initial sepsis screen is negative. Risk Assessment: Do you want to hurt yourself or someone else? Patient reports no desire to harm self or others. Onset of symptoms was October 11, 2024. Care prior to arrival: None. Activity prior to arrival: None. Mechanism of Injury: No Mechanism of Injury. Transition of care: patient was not received from another setting of care. 06:50 Method Of Arrival: Ambulatory vc1 06:50 Acuity: KHADAR 3 vc1 Historical: - Allergies: 06:53 Cinnamon; vc1 - PMHx: 06:53 Anxiety; Bipolar disorder; diabetes mellitus; Pancreatitis; Schizophrenia; vc1 - PSHx: 06:53 Cholecystectomy; ear tubes; ear tuebes; L hand fingers SX; vc1 - Immunization history:: Client reports having NOT received the Covid vaccine. Flu vaccine is not up to date. - Infectious Disease History:: Denies. - Social history:: Smoking status: Patient denies any tobacco usage or history of. - Family history:: not pertinent. - Hospitalizations: : No recent hospitalization is reported. Screenin:57 [facility] ED Fall Risk Assessment (Adult) History of falling in the last 3 months, ay including since admission No falls in past 3 months (0 pts) Confusion or Disorientation No (0 pts) Intoxicated or Sedated No (0 pts) Impaired Gait No (0 pts) Mobility Assist Device Used No (0 pt) Altered Elimination No (0 pt) Score/Fall Risk Level 0 - 2 = Low Risk Oriented to surroundings, Maintained a safe environment, Educated pt \T\ family on fall prevention, incl call for assistance when getting out of bed. Abuse screen: Denies threats or abuse. Nutritional screening: No deficits noted. Tuberculosis screening: No symptoms or risk factors identified. Assessment: 06:57 General: Appears in no apparent distress. comfortable, Behavior is calm, cooperative. ay Pain: Denies pain. Neuro: Level of Consciousness is awake, alert, obeys commands, Oriented to person, place, time, situation, Speech is normal. Cardiovascular: Capillary refill < 3 seconds. Respiratory: Airway is patent Respiratory effort is even, unlabored, Respiratory pattern is regular, symmetrical. GI: Abdomen is round. : Reports urinary frequency, since 10/09/2024. EENT: Reports blurred vision since 10/11/2024. Derm: No signs and/or symptoms reported regarding the dermatologic system. Musculoskeletal: No signs and/or symptoms reported regarding the musculoskeletal system. Vital Signs: 06:50 BP 147 / 102; Pulse 84; Resp 18; Temp 98.4; Pulse Ox 97% ; Weight 126.1 kg; Height 5 vc1 ft. 11 in. ; Pain 0/10; 08:05 BP 116 / 76; Pulse 71; Resp 14; Pulse Ox 96% on R/A; ko1 08:19 BP 142 / 86; Pulse 74; Resp 16; Pulse Ox 97% ; ko1 09:06 BP 112 / 76; Pulse 66; Resp 15; Pulse Ox 97% ; ko1 09:41 BP 128 / 74; Pulse 78; Resp 16; Pulse Ox 99% ; ko1 06:50 Body Mass Index 38.77 (126.10 kg, 180.34 cm) vc1 06:50 Pain Scale: Adult vc1 [place] Coma Score: 06:57 Eye Response: spontaneous(4). Motor Response: obeys commands(6). Verbal Response: ay oriented(5). Total: 15. ED Course: 06:41 Patient arrived in ED. gm2 06:53 Triage completed. vc1 06:53 Arm band placed on right wrist. vc1 06:55 Zay Mccormick MD is Attending Physician. sp4 06:57 Gabbi Keenan, RN is Primary Nurse. ay 06:57 Patient has correct armband on for positive identification. Bed in low position. Call ay light in reach. Side rails up X 1. Provided Education on: plan of care. 07:00 Attending Physician role handed off by Zay Mccormick MD rn 07:00 Aleksandar Robb MD is Attending Physician. rn 07:19 XRAY Chest (1 view) In Process Unspecified. EDMS 07:20 Client placed on continuous cardiac and pulse oximetry monitoring. NIBP monitoring ko1 applied. catalogue and special products manager on. Door closed. Noise minimized. Lights dimmed. Warm blanket given. Pillow given. 07:20 No provider procedures requiring assistance completed. Initial lab(s) drawn, by me, ko1 sent to lab. EKG done, by ED staff, reviewed by Aleksandar Robb MD. Inserted saline lock: 20 gauge in right forearm, using aseptic technique. Blood collected. Flushed with 10 mL NS. 07:24 Basic Metabolic Panel Sent. ko1 07:24 CBC with Diff Sent. ko1 07:24 LFT's Sent. ko1 07:24 Magnesium Sent. ko1 07:24 NT PRO-BNP Sent. ko1 07:24 Troponin HS Sent. ko1 08:18 Primary Nurse role handed off by Gabbi Keenan, EMILY ko1 08:18 Arlene Appiah, RN is Primary Nurse. ko1 09:41 IV discontinued, intact, bleeding controlled, No redness/swelling at site. Pressure ko1 dressing applied. Administered Medications: 07:41 Drug: NS 0.9% IV 1000 ml IV at 1000 ml once; to be given as a bolus over 60 minutes ko1 Route: IV; Rate: 1000 ml; Site: right forearm; 09:02 Follow up: Response: No adverse reaction; IV Status: Completed infusion; IV Intake: ko1 1000ml 07:42 Drug: Insulin Regular Human Sub-Q 5 units Sub-Q once {Co-Signature: ss (chris Avila RN).} Route: Sub-Q; Site: right lower abdomen; 08:13 Follow up: Response: No adverse reaction ko1 Medication: 08:16 VIS not applicable for this client. ko1 Intake: 09:02 IV: 1000ml; Total: 1000ml. ko1 Outcome: :23 Discharge ordered by . rn 09:41 Discharged to home ambulatory, ko1 :41 Condition: stable :41 Discharge instructions given to patient, Instructed on discharge instructions, follow up and referral plans. medication usage, Demonstrated understanding of instructions, follow-up care, medications, Prescriptions given X 2, :42 Patient left the ED. ko1 Signatures: Dispatcher [employer] EDMS Aleksandar Robb MD MD rn Calcote, Vanessa, RN RN 1 Arlene Appiah RN RN Zay Coleman MD MD sp4 Radha Dixon gm2 Gabbi Keenan, RN Marlee Zhu RN ss
--- NOTE | 2024-10-11 09:24 | EDPHYS ---
Physician Documentation [facility] Name: Joaquin Bustos II Age: 28 yrs Sex: Male : 1995 Arrival Date: 10/11/2024 Time: 06:35 Bed 17 Private MD: ED Physician Aleksandar Robb HPI: 10/11 07:46 This 28 yrs old Male presents to ER via Ambulatory with complaints of High rn Blood Sugar. 07:46 The patient or guardian reports hyperglycemia, that was potentially precipitated by Not rn taking medication. Onset: The symptoms/episode began/occurred yesterday. Current symptoms: In the emergency department the patient's symptoms are unchanged from the initial presentation. The patient has experienced similar episodes in the past. Patient reports high blood sugar, started feeling generalized weakness, increased urination and fatigue with thirst yesterday. Has not been taking his diabetes medication for about 6 to 7 months. Recently took his significant other his metformin but still not feeling well. Denies any fever or recent illness. No vomiting or diarrhea. Denies any focal pain.. Historical: - Allergies: 06:53 Cinnamon; vc1 - PMHx: 06:53 Anxiety; Bipolar disorder; diabetes mellitus; Pancreatitis; Schizophrenia; vc1 - PSHx: 06:53 Cholecystectomy; ear tubes; ear tuebes; L hand fingers SX; vc1 - Immunization history:: Client reports having NOT received the Covid vaccine. Flu vaccine is not up to date. - Infectious Disease History:: Denies. - Social history:: Smoking status: Patient denies any tobacco usage or history of. - Family history:: not pertinent. - Hospitalizations: : No recent hospitalization is reported. ROS: 07:46 Constitutional: Negative for fever, chills, and weight loss, Cardiovascular: Negative rn for chest pain, palpitations, and edema, Respiratory: Negative for shortness of breath, cough, wheezing, and pleuritic chest pain, Abdomen/GI: Negative for abdominal pain, nausea, vomiting, diarrhea, and constipation, MS/Extremity: Negative for injury and deformity, Neuro: Positive for generalized weakness and malaise Endocrine: Positive for polyuria and polydipsia Exam: 07:46 Constitutional: This is a well developed, well nourished patient who is awake, alert, rn and in no acute distress. ENT: Dry mucous membranes Cardiovascular: Regular rate and rhythm. No pulse deficits. Abdomen/GI: Soft, non-tender Skin: Warm, dry Neuro: Awake and alert, GCS 15 14:47 ECG was reviewed by the Attending Physician. rn Vital Signs: 06:50 BP 147 / 102; Pulse 84; Resp 18; Temp 98.4; Pulse Ox 97% ; Weight 126.1 kg; Height 5 vc1 ft. 11 in. ; Pain 0/10; 08:05 BP 116 / 76; Pulse 71; Resp 14; Pulse Ox 96% on R/A; ko1 08:19 BP 142 / 86; Pulse 74; Resp 16; Pulse Ox 97% ; ko1 09:06 BP 112 / 76; Pulse 66; Resp 15; Pulse Ox 97% ; ko1 09:41 BP 128 / 74; Pulse 78; Resp 16; Pulse Ox 99% ; ko1 06:50 Body Mass Index 38.77 (126.10 kg, 180.34 cm) vc1 06:50 Pain Scale: Adult vc1 [place] Coma Score: 06:57 Eye Response: spontaneous(4). Motor Response: obeys commands(6). Verbal Response: ay oriented(5). Total: 15. MDM: 06:57 Medical Screening Exam initiated sp4 09:22 Differential diagnosis: DKA, hyperglycemia. Data reviewed: vital signs, nurses notes, buttermaker continuous churn test result(s), and as a result, I will discharge patient. Counseling: I had a detailed discussion with the patient and/or guardian regarding the historical points, exam findings, and any diagnostic results supporting the discharge/admit diagnosis, lab results, the need for outpatient follow up, to return to the emergency department if symptoms worsen or persist or if there are any questions or concerns that arise at home. Special discussion: I discussed with the patient/guardian in detail that at this point there is no indication for admission to the hospital. It is understood, however, that if the symptoms persist or worsen the patient needs to return immediately for re-evaluation. Based on the history and exam findings, there is no indication for further emergent testing or inpatient evaluation. I discussed with the patient/guardian the need to see the primary care provider for further evaluation of the symptoms. ED course: No acidosis, glucose now under 300. Patient states used to take insulin glargine 10 units daily as well as metformin 500 mg. Will refill his medication as he has been out for 6 to 7 months. Has PCP appointment at end of month for further management.. 10/11 06:56 Order name: Basic Metabolic Panel; Complete Time: 09:14 sp4 10/11 06:56 Order name: CBC with Diff; Complete Time: 08:16 sp4 10/11 06:56 Order name: LFT's; Complete Time: 09:14 sp4 10/11 06:56 Order name: Magnesium; Complete Time: 09:14 sp4 10/11 06:56 Order name: NT PRO-BNP; Complete Time: 09:14 sp4 10/11 06:56 Order name: Troponin HS; Complete Time: 09:14 sp4 10/11 07:34 Order name: Glucose, Ancillary Testing; Complete Time: 08:16 EDMS 10/11 07:37 Order name: Lipase; Complete Time: 09:14 EDMS 10/11 09:25 Order name: Glucose, Ancillary Testing; Complete Time: 09:33 EDMS 10/11 06:56 Order name: XRAY Chest (1 view); Complete Time: 08:16 sp4 10/11 06:56 Order name: Cardiac monitoring; Complete Time: 07:04 sp4 10/11 06:56 Order name: EKG - Nurse/Tech; Complete Time: 07:36 sp4 10/11 06:56 Order name: IV Saline Lock; Complete Time: 07:24 sp4 10/11 06:56 Order name: Labs collected and sent; Complete Time: 07:24 sp4 10/11 06:56 Order name: O2 Per Protocol; Complete Time: 07:04 sp4 10/11 06:56 Order name: O2 Sat Monitoring; Complete Time: 07:04 sp4 10/11 07:15 Order name: Glucose Level; Complete Time: 07:37 rn EC:47 Rate is 76 beats/min. Rhythm is regular. QRS [place] is Normal. NV interval is normal. QRS rn interval is normal. QT interval is normal. No Q waves. T waves are Normal. No ST changes noted. Clinical impression: Normal ECG. Interpreted by me. Reviewed by me. Administered Medications: 07:41 Drug: NS 0.9% IV 1000 ml IV at 1000 ml once; to be given as a bolus over 60 minutes ko1 Route: IV; Rate: 1000 ml; Site: right forearm; 09:02 Follow up: Response: No adverse reaction; IV Status: Completed infusion; IV Intake: ko1 1000ml 07:42 Drug: Insulin Regular Human Sub-Q 5 units Sub-Q once {Co-Signature: ss (chris Avila RN).} Route: Sub-Q; Site: right lower abdomen; 08:13 Follow up: Response: No adverse reaction ko1 Disposition Summary: 10/11/24 09:23 Discharge Ordered Notes: Location: Home rn Problem: an ongoing problem rn Symptoms: have improved rn Condition: Stable rn Diagnosis - Hyperglycemia, unspecified rn Followup: rn - With: Private Physician - When: As needed - Reason: Recheck today's complaints, Re-evaluation by your physician Discharge Instructions: - Discharge Summary Sheet rn - Hyperglycemia rn - Blood Glucose Monitoring, Adult rn Forms: - Medication Reconciliation Form rn - Antibiotic broomcorn sorter - Prescription Opioid Use rn - Patient Portal Instructions rn - Leadership Thank You Letter rn Prescriptions: - insulin glargine U-300 conc 300 unit/mL (3 mL) Subcutaneous Insulin Pen - inject 10 unit SUBCUTANEOUS route once daily; 1 pen; Refills: 0, Product rn Selection Permitted - Metformin 500 mg Oral Tablet, Extended Release 24 hr - take 1 tablet ORAL route once daily with evening meal; 30 tablet; Refills: 0, rn Product Selection Permitted Signatures: Dispatcher [employer] EDMS Aleksandar Robb MD MD rn Calcote, Vanessa RN RN 1 Arlene Appiah RN RN Zay Coleman MD MD sp4 Marlee Avila RN ss Corrections: (The following items were deleted from the chart) 06:57 06:57 Chest Single View+RAD.RAD.BRZ ordered. EDMS EDMS 07:37 07:16 LIPASE+C.LAB.BRZ ordered. EDMS EDMS
[2024-10-11 09:51] VITALS: TEMP 98.4
[2024-10-11 10:07] VITALS: BP 128/74; O2SAT 99
--- NOTE | 2024-10-15 10:57 | EKG ---
Test Date: 2024-10-11 Test Time: 07:33:15 [employer] Instrument Repairer: WILLAM MEASUREMENT RESULTS: Intervals: Rate: 76 VA: 144 QRSD: 92 QT: 372 QTc: 418 [place]: P: 41 VA: 144 QRS: 89 T: 38 INTERPRETIVE STATEMENTS: Normal sinus rhythm Normal ECG Compared to ECG 01/03/2023 12:20:53 No significant changes Electronically Signed On 10-15-24 10:51:54 DIRECTOR BUSINESS by Agustin Beckett
== END 2024-10-11 09:42 | disposition home or self-care (01) ==
LOC: ER 06:35
DX: E11.65 Type 2 diabetes mellitus with hyperglycemia (principal)
CPT/HCPCS: 93005; 85025; 80048; 36415; 83735; 82947 ×2; 80076; 84484; 83690; 83880; 71045; 96360; 96372; 99285; J7030

== ENCOUNTER 2024-11-03 08:22 | Emergency (ER) | payer OTHER ==
[2024-11-03 09:12] LABS: Absolute Basophils 0.1 K/uL (0-0.5); Absolute Eosinophils 0.2 K/uL (0-0.5); Absolute Lymphocytes (CBC) 3.3 K/uL (0.7-4.9); Absolute Monocytes 0.6 K/uL (0.1-1.3); Absolute Neutrophil 4.6 K/uL (1.8-8.0); Basophils % 0.9 % (0-1.3); Eosinophils % 2.3 % (0-4.4); Hematocrit 43.3 % (39.6-49.0); Hemoglobin 14.8 g/dL (13.6-17.9); Lymphocytes % 37.5 % (15.3-44.8); MCH 29.2 pg (27.0-35.0); MCHC 34.1 g/dL (32.0-36.0); MCV 85.8 fL (80-100); MPV 10.4 fL (7.6-11.3); Monocytes % 6.7 % (3.3-12.3); Neutrophils % 52.6 % (41.7-73.7); Platelets 238 thou/uL (152-406); RBC Red Blood Cell Count 5.05 M/uL (4.33-5.43); Red Cell Distribution Width 12.6 % (12.1-15.2)
[2024-11-03] MEDS ORDERED: FAMOTIDINE 20 MG/2 ML VIAL IV ONE (09:30)
[2024-11-03] MEDS ORDERED: ONDANSETRON 4 MG/2 ML VIAL ONE (09:30)
[2024-11-03] MEDS ORDERED: NA CHLORIDE 0.9% 1,000 ML ONE (09:30)
[2024-11-03 09:46] LABS: Albumin 3.5 g/dL (3.4-5.0); Albumin/Globulin Ratio 0.8 (1.1-1.8); Anion Gap 16.9 mEq/L (5.0-15.0); Bilirubin Total 0.6 mg/dL (0.2-1.0); Globulin 4.2 g/dL (2.3-3.5); Protein, Total 7.7 g/dL (6.4-8.2)
[2024-11-03 09:50] LABS: Potassium 3.9 mEq/L (3.5-5.1)
[2024-11-03] MEDS ORDERED: INSULIN REGULAR (HUMAN) 100 UNIT/ML ONE (10:02)
--- NOTE | 2024-11-03 11:00 | RAD REPORT ---
EXAMINATION: CT Abdomen Pelvis W Contrast CLINICAL INDICATION: Male, 28 years old. ABD PAIN TECHNIQUE: CT abdomen and pelvis was performed, after the administration of IV contrast, as [facility]. Axial, sagittal and coronal reconstructions were obtained. One or more of the following dose reduction techniques were used: Automated exposure control, adjustment of the mA and k V according to patient size, and iterative reconstruction. Unless otherwise specified, incidental findings do not require dedicated imaging follow-up. COMPARISON: 01/31/2024 FINDINGS: LOWER CHEST: The visualized lung bases are clear. LIVER: Mild fatty liver is present. No focal lesion or biliary dilataion is seen. BILIARY SYSTEM: Status post cholecystectomy. SPLEEN: Normal size. No focal lesion. PANCREAS: No mass, ductal dilation, or francy-pancreatic fluid. ADRENALS: Normal; no mass. KIDNEYS: Normal size and contour. No hydronephrosis. URINARY BLADDER: Unremarkable. GASTROINTESTINAL TRACT: No evidence of free air, significant intra-abdominal free fluid, bowel obstru ction or abscess. APPENDIX: Normal appendix. LYMPH NODES: No lymphadenopathy. MUSCULOSKELETAL: No acute or suspicious osseous abnormality. ADDITIONAL FINDINGS: Small umbilical hernia containing fat, stable. IMPRESSION: No acute or concerning abnormalities seen in the abdomen or pelvis. Stable findings including diffuse hepatic steatosis.
--- NOTE | 2024-11-03 12:08 | ER ---
Nurse's Notes [facility] Name: Joaquin Bustos II Age: 28 yrs Sex: Male : 1995 Arrival Date: 11/03/2024 Time: 08:22 Bed 7 Private MD: Diagnosis: Acute on chronic pancreatitis;Hyperglycemia, unspecified Presentation: 11/03 08:45 Chief complaint: LUQ pain x 1 week, vomit x 1 today. Coronavirus screen: At this time, hb the client does not indicate any symptoms associated with coronavirus-19. Ebola Screen: No symptoms or risks identified at this time. Initial Sepsis Screen: Does the patient meet any 2 criteria? No. Patient's initial sepsis screen is negative. Does the patient have a suspected source of infection? No. Patient's initial sepsis screen is negative. Risk Assessment: Do you want to hurt yourself or someone else? Patient reports no desire to harm self or others. Onset of symptoms was October 27, 2024. 08:45 Method Of Arrival: Ambulatory hb 08:45 Acuity: KHADAR 3 hb Triage Assessment: 08:50 General: Appears distressed, uncomfortable, obese, Behavior is cooperative, appropriate bp for age, anxious. Pain: Complains of pain in left upper quadrant. EENT: No deficits noted. Neuro: No deficits noted. Cardiovascular: No deficits noted. Respiratory: No deficits noted. GI: Reports upper abdominal pain. : No deficits noted. Derm: No deficits noted. Musculoskeletal: No deficits noted. Historical: - Allergies: 08:46 Cinnamon; hb - PMHx: 08:46 Anxiety; Bipolar disorder; diabetes mellitus; Pancreatitis; Schizophrenia; hb - PSHx: 08:46 Cholecystectomy; ear tubes; L hand fingers SX; hb - Immunization history:: Adult Immunizations up to date. - Infectious Disease History:: Denies. - Family history:: not pertinent. - Hospitalizations: : No recent hospitalization is reported. - Social history:: Smoking status: Patient denies any tobacco usage or history of. Screenin:36 [facility] ED Fall Risk Assessment (Adult) History of falling in the last 3 months, bp including since admission No falls in past 3 months (0 pts) Confusion or Disorientation No (0 pts) Intoxicated or Sedated No (0 pts) Impaired Gait No (0 pts) Mobility Assist Device Used No (0 pt) Altered Elimination No (0 pt) Score/Fall Risk Level 0 - 2 = Low Risk Oriented to surroundings. Abuse screen: Denies threats or abuse. Denies injuries from another. Nutritional screening: No deficits noted. Tuberculosis screening: No symptoms or risk factors identified. Assessment: 09:00 General: Appears in no apparent distress. uncomfortable, obese, Behavior is bp cooperative, appropriate for age, anxious. 09:36 Reassessment: Patient appears in no apparent distress at this time. Patient is alert, bp oriented x 3, equal unlabored respirations, skin warm/dry/pink. 13:05 Reassessment: Patient appears in no apparent distress at this time. No changes from ld1 previously documented assessment. Patient and/or family updated on plan of care and expected duration. Pain level reassessed. Patient is alert, oriented x 3, equal unlabored respirations, skin warm/dry/pink. Vital Signs: 08:45 BP 140 / 91; Pulse 74; Resp 16; Temp 97.7(O); Pulse Ox 97% on R/A; Pain 8/10; hb 09:36 BP 110 / 74; Pulse 71; Resp 15; Pulse Ox 95% ; bp 13:05 BP 123 / 76; Pulse 71; Resp 18; Pulse Ox 100% on R/A; ld1 08:45 Pain Scale: Adult hb ED Course: 08:28 Patient arrived in ED. ra3 08:31 Yohan Monroy, RN is Primary Nurse. bp 08:31 Aleksandar Robb MD is Attending Physician. rn 08:46 Triage completed. hb 09:02 Inserted saline lock: 20 gauge in right forearm, using aseptic technique. Blood bp collected. Flushed with 10 mL NS. 09:03 Arm band placed on. bp 09:36 Patient has correct armband on for positive identification. Bed in low position. bp 10:07 CT Abd/Pelvis - IV Contrast Only In Process Unspecified. EDMS 13:05 No provider procedures requiring assistance completed. IV discontinued, intact, ld1 bleeding controlled, No redness/swelling at site. Administered Medications: 09:15 Drug: Famotidine IVP 20 mg IVP once; dilute with 10 mL 0.9% NaCl; give over 2 minutes bp Route: IVP; Site: right forearm; 09:15 Drug: Ondansetron IVP 4 mg IVP once; over 2 minutes Route: IVP; Site: right forearm; bp 09:15 Drug: NS 0.9% IV 1000 ml IV at 1 bolus Per protocol; to be given as a bolus over 60 bp minutes Route: IV; Rate: 1 bolus; Site: right forearm; 10:11 Drug: Insulin Regular Human Sub-Q 10 units Sub-Q once {Co-Signature: ld1 (Augustina Mackenzie RN).} Route: Sub-Q; Site: right upper arm; Medication: 13:06 VIS not applicable for this client. ld1 Outcome: 12:08 Discharge ordered by . rn 13:05 Discharged to home ambulatory, ld1 13:05 Condition: stable 13:05 Discharge instructions given to patient, Instructed on discharge instructions, follow up and referral plans. medication usage, Demonstrated understanding of instructions, follow-up care, medications, Prescriptions given X 2, 13:06 Patient left the ED. ld1 Signatures: Dispatcher [employer] EDMS Aleksandar Robb MD MD rn Baxter, Heather, RN Yohan Lawrence RN RN Augustina Mackenzie RN RN ld1 Nancy Gonzales Lauren RN ld1
--- NOTE | 2024-11-03 12:08 | EDPHYS ---
Physician Documentation [facility] Name: Joaquin Bustos II Age: 28 yrs Sex: Male : 1995 Arrival Date: 11/03/2024 Time: 08:22 Bed 7 Private MD: ED Physician Aleksandar Robb HPI: 11/03 09:25 This 28 yrs old Male presents to ER via Ambulatory with complaints of rn Abdominal Pain. 09:25 The patient presents with abdominal pain in the upper abdomen. rn 09:25 Onset: The symptoms/episode began/occurred 1 week(s) ago. The symptoms do not radiate. rn Associated signs and symptoms: Pertinent positives: nausea and vomiting, constipation, Pertinent negatives: chest pain, diarrhea, fever, shortness of breath, testicular pain, vomiting blood. Modifying factors: The symptoms are alleviated by nothing, the symptoms are aggravated by nothing. Severity of pain: At its worst the pain was moderate in the emergency department the pain has improved. The patient has experienced similar episodes in the past. Patient reports upper abdominal pain, left upper quadrant and epigastrium, began 1 week ago, associated with nausea and vomiting and constipation. Patient reports has had pancreatitis in the past, gallbladder has been removed, has still had 2 episodes of pancreatitis since cholecystectomy. No fever or chills. No trauma. Just finished up his drink overnight shifts so came in for evaluation this morning.. Historical: - Allergies: 08:46 Cinnamon; hb - PMHx: 08:46 Anxiety; Bipolar disorder; diabetes mellitus; Pancreatitis; Schizophrenia; hb - PSHx: 08:46 Cholecystectomy; ear tubes; L hand fingers SX; hb - Immunization history:: Adult Immunizations up to date. - Infectious Disease History:: Denies. - Family history:: not pertinent. - Hospitalizations: : No recent hospitalization is reported. - Social history:: Smoking status: Patient denies any tobacco usage or history of. ROS: 09:25 Constitutional: Negative for fever, chills, and weight loss, Cardiovascular: Negative rn for chest pain, palpitations, and edema, Respiratory: Negative for shortness of breath, cough, wheezing, and pleuritic chest pain, Abdomen/GI: Positive for constipation Back: Negative for injury and pain, Exam: 09:25 Constitutional: This is a well developed, well nourished patient who is awake, alert, rn and in no acute distress. Cardiovascular: Regular rate and rhythm. No pulse deficits. Respiratory: No increased work of breathing, no retractions or nasal flaring. Abdomen/GI: Soft, mild epigastric and left upper quadrant tenderness. No rebound or guarding. MS/ Extremity: Pulses equal, no cyanosis. Neuro: Awake and alert, GCS 15 Vital Signs: 08:45 BP 140 / 91; Pulse 74; Resp 16; Temp 97.7(O); Pulse Ox 97% on R/A; Pain 8/10; hb 09:36 BP 110 / 74; Pulse 71; Resp 15; Pulse Ox 95% ; bp 13:05 BP 123 / 76; Pulse 71; Resp 18; Pulse Ox 100% on R/A; ld1 08:45 Pain Scale: Adult hb MDM: 08:31 Medical Screening Exam initiated rn 12:06 Differential diagnosis: gastritis, gastroesophageal reflux disease, Peptic Ulcer rn Disease, Perf. Duodenal Ulcer, Perf. Gastric Ulcer, Pancreatitis. Data reviewed: vital signs, nurses notes, lab test result(s), radiologic studies, CT scan, and as a result, I will discharge patient. Counseling: I had a detailed discussion with the patient and/or guardian regarding the historical points, exam findings, and any diagnostic results supporting the discharge/admit diagnosis, lab results, radiology results, the need for outpatient follow up, to return to the emergency department if symptoms worsen or persist or if there are any questions or concerns that arise at home. Response to treatment: the patient's symptoms have markedly improved after treatment, and as a result, I will discharge patient. Special discussion: Based on the patient's Hx, exam, and Dx evaluation, there is no indication for emergent surgery or inpatient Tx. It is understood by the patient/guardian that if the Sx's persist or worsen they need to return immediately for re-evaluation. I discussed with the patient/guardian in detail that at this point there is no indication for admission to the hospital. It is understood, however, that if the symptoms persist or worsen the patient needs to return immediately for re-evaluation. ED course: No acute findings on CT abdomen pelvis. Lipase is 500, consistent with mild pancreatitis. Stable vital signs. Patient feels better. Glucose 475, no acidosis, hydrated with 1 L bolus and given 10 units insulin subcu. Patient states his glucose has been more in the 100s lately. Has insulin at home. Will discharge home with pain medication and nausea medication given this is recurrent and chronic pancreatitis. Instructed to monitor his glucose and control it carefully.. 11/03 08:42 Order name: CBC with Diff; Complete Time: 09:53 rn 11/03 08:42 Order name: CMP; Complete Time: 09:53 rn 11/03 08:42 Order name: Lipase; Complete Time: 09:53 rn 11/03 13:02 Order name: Glucose, Ancillary Testing EDMS 11/03 08:42 Order name: CT Abd/Pelvis - IV Contrast Only; Complete Time: 11:04 rn 11/03 08:42 Order name: IV Saline Lock; Complete Time: 09:01 rn 11/03 08:42 Order name: Labs collected and sent; Complete Time: 09: rn Administered Medications: 09:15 Drug: Famotidine IVP 20 mg IVP once; dilute with 10 mL 0.9% NaCl; give over 2 minutes bp Route: IVP; Site: right forearm; 09:15 Drug: Ondansetron IVP 4 mg IVP once; over 2 minutes Route: IVP; Site: right forearm; bp 09:15 Drug: NS 0.9% IV 1000 ml IV at 1 bolus Per protocol; to be given as a bolus over 60 bp minutes Route: IV; Rate: 1 bolus; Site: right forearm; 10:11 Drug: Insulin Regular Human Sub-Q 10 units Sub-Q once {Co-Signature: ld1 (Augustina Mackenzie bp RN).} Route: Sub-Q; Site: right upper arm; Disposition Summary: 11/03/24 12:08 Discharge Ordered Notes: Location: Home rn Problem: an acute exacerbation rn Symptoms: have improved rn Condition: Stable rn Diagnosis - Acute on chronic pancreatitis rn - Hyperglycemia, unspecified rn Followup: rn - With: Private Physician - When: As needed - Reason: Recheck today's complaints, Re-evaluation by your physician Discharge Instructions: - Discharge Summary Sheet rn - Hyperglycemia rn - Blood Glucose Monitoring, Adult rn - Chronic Pancreatitis rn Forms: - Medication Reconciliation Form rn - Antibiotic learning specialist - Prescription Opioid Use rn - Patient Portal Instructions rn - Leadership Thank You Letter rn Prescriptions: - ondansetron 4 mg Oral Tablet,disintegrating - take 1 tablet ORAL route every 8 hours As needed; 15 tablet; Refills: 0, rn Product Selection Permitted - Tramadol 50 mg Oral Tablet - take 1 tablet ORAL route every 8 hours as needed; 12 tablet; Refills: 0, rn Product Selection Permitted Signatures: Dispatcher [employer] EDMS Aleksandar Robb MD MD rn Baxter, Heather RN EMILY Yohan Monroy RN Augustina Serna RN RN ld1 Augustina Mackenzie RN ld1 Corrections: (The following items were deleted from the chart) 08:43 08:43 CBC+H.LAB.BRZ ordered. EDMS EDMS 08:43 08:43 COMPREHENSIVE METABOLIC PANEL+C.LAB.BRZ ordered. EDMS EDMS 08:43 08:43 LIPASE+C.LAB.BRZ ordered. EDMS EDMS 08:43 08:43 Abdomen Pelvis W Con+CT.RAD.BRZ ordered. EDMS EDMS
[2024-11-03 13:18] VITALS: TEMP 97.7
[2024-11-03 13:28] VITALS: BP 123/76; O2SAT 100
== END 2024-11-03 13:06 | disposition home or self-care (01) ==
LOC: ER 08:22
DX: K86.1 Other chronic pancreatitis (principal); E11.65 Type 2 diabetes mellitus with hyperglycemia
CPT/HCPCS: 85025; 36415; 82947; 83690; 80053; 74177; 96375; 96372; 96374; 99284; Q9967; J2405; J7030

== ENCOUNTER 2025-01-09 15:13 | Emergency (ER) | payer OTHER ==
[2025-01-09] MEDS ORDERED: NA CHLORIDE 0.9% 1,000 ML ONE ×2 (15:38→21:01)
[2025-01-09 16:07] LABS: Absolute Basophils 0.1 K/uL (0-0.5); Absolute Eosinophils 0.2 K/uL (0-0.5); Absolute Lymphocytes (CBC) 1.7 K/uL (0.7-4.9); Absolute Monocytes 0.7 K/uL (0.1-1.3); Absolute Neutrophil 6.9 K/uL (1.8-8.0); Basophils % 1.2 % (0-1.3); Eosinophils % 1.9 % (0-4.4); Hematocrit 48.4 % (39.6-49.0); Hemoglobin 16.5 g/dL (13.6-17.9); Lymphocytes % 17.5 % (15.3-44.8); MCH 30.4 pg (27.0-35.0); MCHC 34.2 g/dL (32.0-36.0); MCV 88.8 fL (80-100); MPV 10.2 fL (7.6-11.3); Monocytes % 6.9 % (3.3-12.3); Neutrophils % 72.5 % (41.7-73.7); Nucleated Red Blood Cells % 0.1 % (0-0); Platelets 268 thou/uL (152-406); RBC Red Blood Cell Count 5.44 M/uL (4.33-5.43); Red Cell Distribution Width 13.3 % (12.1-15.2)
[2025-01-09 16:12] LABS: Anion Gap 16.3 mEq/L (5.0-15.0); Potassium 4.3 mEq/L (3.5-5.1); Troponin High Sensitivity 12.5 pg/mL (<58.9)
--- NOTE | 2025-01-09 17:12 | RAD REPORT ---
EXAMINATION: ONE VIEW CHEST XR CLINICAL INDICATION: Male, 29 years old.,CHEST PAIN TECHNIQUE: Frontal chest projection is submitted. Examination is limited by patient positioning and t echnique. COMPARISON: 10/11/2024. FINDINGS: The lungs are well inflated and clear. No pneumothorax or sizable effusion. The heart is normal in s ize. Mediastinal contours are unremarkable. IMPRESSION: No acute intrathoracic abnormalities.
[2025-01-09] MEDS ORDERED: INSULIN REGULAR (HUMAN) 100 UNIT/ML ONE ×2 (17:48→21:00)
--- NOTE | 2025-01-09 22:25 | EDPHYS ---
Physician Documentation [facility] Name: Joaquin Bustos II Age: 29 yrs Sex: Male : 1995 Arrival Date: 01/09/2025 Time: 15:13 Bed 14 Private MD: ED Physician Donald Mackenzie HPI: 01/09 15:49 This 29 yrs old Male presents to ER via Wheelchair with complaints of Chest ms3 Pain, High Blood Sugar, General Weakness. 15:49 29-year-old male with past medical history of bipolar, anxiety, diabetes, pancreatitis, ms3 schizophrenia presents to the emergency department for generalized weakness, chest pain, fatigue that began yesterday. Patient notes his blood glucose levels have been running in the 500s. Patient states he is taking his medications as prescribed. Patient states he had similar symptoms 2 years ago.. Historical: - Allergies: 15:28 Cinnamon; iw - PMHx: 15:28 Bipolar disorder; Anxiety; diabetes mellitus; Pancreatitis; Schizophrenia; iw - PSHx: 15:28 Cholecystectomy; ear tubes; ear tuebes; L hand fingers SX; iw - Immunization history:: Adult Immunizations up to date. - Infectious Disease History:: Denies. - Social history:: Smoking status: Patient denies any tobacco usage or history of. ROS: 15:49 Respiratory: Negative for shortness of breath, cough, wheezing, and pleuritic chest ms3 pain, Abdomen/GI: Negative for abdominal pain, nausea, vomiting, diarrhea, and constipation, 15:49 MS/Extremity: Negative for injury and deformity, Skin: Negative for injury, rash, and discoloration, 15:49 Constitutional: Positive for fatigue, 15:49 Cardiovascular: Positive for chest pain, Exam: 15:49 Constitutional: This is a well developed, well nourished patient who is awake, alert, ms3 and in no acute distress. Respiratory: Lungs have equal breath sounds bilaterally, clear to auscultation and percussion. No rales, rhonchi or wheezes noted. No increased work of breathing, no retractions or nasal flaring. Abdomen/GI: Soft, non-tender, with normal bowel sounds. No distension or tympany. No guarding or rebound. No evidence of tenderness throughout. Skin: Warm, dry with normal turgor. Normal color with no rashes, no lesions, and no evidence of cellulitis. MS/ Extremity: Pulses equal, no cyanosis. Neurovascular intact. Full, normal range of motion. 15:49 Cardiovascular: Rate: tachycardic, Rhythm: regular, Pulses: no pulse deficits are appreciated, 16:08 ECG was reviewed by the Attending Physician. ms3 Vital Signs: 15:26 BP 130 / 83; Pulse 110; Resp 18; Temp 97.8; Pulse Ox 98% on R/A; iw 16:56 BP 118 / 82; Pulse 84; Resp 18; Pulse Ox 99% on R/A; ph 17:36 BP 134 / 91; Pulse 84; Resp 18; Pulse Ox 98% on R/A; ph 18:14 BP 133 / 88; Pulse 90; Resp 18; Pulse Ox 99% on R/A; ph 18:55 BP 138 / 91; Pulse 83; Resp 18; Pulse Ox 98% on R/A; ph 22:49 BP 113 / 78; Pulse 85; Resp 16; Temp 98.2; Pulse Ox 100% on R/A; dd2 [place] Coma Score: 22:49 Eye Response: spontaneous(4). Motor Response: obeys commands(6). Verbal Response: dd2 oriented(5). Total: 15. MDM: 15:31 Medical Screening Exam initiated ms3 15:49 Differential diagnosis: abnormal EKG, DKA vs Hyperglycemia. ms3 22:22 Data reviewed: vital signs, nurses notes, lab test result(s), EKG, radiologic studies, ms3 and as a result, I will discharge patient. Consideration of Admission/Observation Escalation of care including admission/observation considered. Patient with anion gap of 12. Symptoms have improved since arrival to the emergency department.. I considered the following discharge prescriptions or medication management in the emergency department Medications were administered in the Emergency Department. See MAR. Independent interpretation of the following test(s) in the Emergency Department EKG: See my EKG interpretation above. Counseling: I had a detailed discussion with the patient and/or guardian regarding the historical points, exam findings, and any diagnostic results supporting the discharge/admit diagnosis, lab results, radiology results, the need for outpatient follow up, to return to the emergency department if symptoms worsen or persist or if there are any questions or concerns that arise at home. Special discussion: I discussed with the patient/guardian in detail that at this point there is no indication for admission to the hospital. It is understood, however, that if the symptoms persist or worsen the patient needs to return immediately for re-evaluation. ED course: Discussed labs with patient. On reevaluation patient symptoms have improved, patient is alert and orient x 4, no apparent distress, nontoxic-appearing, speaking full sentences. Patient's anion gap 12, bicarb 21. Patient to follow-up with primary care physician in 2 to 3 days. Patient states he has insulin, metformin, and his other medications at home.. 01/09 15:17 Order name: Basic Metabolic Panel; Complete Time: 16:20 ms3 01/09 15:17 Order name: CBC with Diff; Complete Time: 16:20 ms3 01/09 15:17 Order name: Troponin HS; Complete Time: 16:20 ms3 01/09 15:31 Order name: ABG: VBG ms3 01/09 15:46 Order name: Glucose, Ancillary Testing; Complete Time: 16:20 EDMS 01/09 19:17 Order name: Glucose, Ancillary Testing; Complete Time: 20:57 EDMS 01/09 22:40 Order name: Glucose, Ancillary Testing EDMS 01/09 15:17 Order name: XRAY Chest (1 view); Complete Time: 17:40 ms3 01/09 15:17 Order name: Cardiac monitoring; Complete Time: 15:56 ms3 01/09 15:17 Order name: EKG - Nurse/Tech; Complete Time: 15:41 ms3 01/09 15:17 Order name: IV Saline Lock; Complete Time: 15:45 ms3 01/09 15:17 Order name: Labs collected and sent; Complete Time: 15:45 ms3 01/09 15:17 Order name: O2 Per Protocol; Complete Time: 15:43 ms3 01/09 15:17 Order name: O2 Sat Monitoring; Complete Time: 15:43 ms3 Administered Medications: 15:54 Drug: NS 0.9% IV 1000 ml IV at 1000 ml once; to be given as a bolus over 60 minutes ph Route: IV; Rate: 1000 ml; Site: left antecubital; 19:00 Follow up: IV Status: Completed infusion; IV Intake: 1000ml rg5 18:18 Drug: Insulin Regular Human Sub-Q 10 units Sub-Q once {Co-Signature: ph (Burton, Lydia jl7 RN).} Route: Sub-Q; Site: right upper arm; 20:55 Follow up: Response: No adverse reaction rg5 21:03 Drug: NS 0.9% IV 1000 ml IV at 1000 ml once; to be given as a bolus over 60 minutes rg5 Route: IV; Rate: 1000 ml; Site: right antecubital; 22:50 Follow up: IV Status: Completed infusion dd2 21:04 Drug: Insulin Regular Human Sub-Q 10 units Sub-Q once {Co-Signature: kj2 (liberty Chan RN).} Route: Sub-Q; Site: right lower abdomen; 22:08 Follow up: Response: No adverse reaction rg5 Disposition: 22:23 Critical Care:. ms3 Disposition Summary: 01/09/25 22:24 Discharge Ordered Notes: Location: Home ms3 Condition: Stable ms3 Diagnosis - Hyperglycemia, unspecified ms3 - Essential (primary) hypertension ms3 Followup: ms3 - With: Private Physician - When: 2 - 3 days - Reason: Recheck today's complaints Discharge Instructions: - Discharge Summary Sheet ms3 - Hyperglycemia ms3 - Hypertension, Adult ms3 - Blood Glucose Monitoring, Adult ms3 - DASH Eating Plan ms3 Forms: - Medication Reconciliation Form ms3 - Antibiotic Education ms3 - Prescription Opioid Use ms3 - Patient Portal Instructions ms3 - Leadership Thank You Letter ms3 Critical care time excluding procedures: 22:23 Critical care time: Bedside Care: 35 minutes. Total time: 35 minutes ms3 Signatures: Dispatcher [employer] EDMS Erna Wright RN RN iw Lydia Burton, RN RN Shazia Pereira RN RN [email or web address] Donald Mackenzie DO DO ms3 Danis Preciado RN RN MARIAH Esquivel RN dd2 Lydia Burton RN, ph, Krystal RN kj2 Corrections: (The following items were deleted from the chart) 15:18 15:18 Chest Single View+RAD.RAD.BRZ ordered. EDMS EDMS
--- NOTE | 2025-01-09 22:25 | ER ---
Nurse's Notes [facility] Name: Joaquin Bustos II Age: 29 yrs Sex: Male : 1995 Arrival Date: 01/09/2025 Time: 15:13 Bed 14 Private MD: Diagnosis: Hyperglycemia, unspecified;Essential (primary) hypertension Presentation: 01/09 15:26 Chief complaint: Patient states: feels like his Blood sugar is high, has not been iw checking his sugar, feels tired, SOB, chest pain, unable to stay awake X 2 days. Coronavirus screen: At this time, the client does not indicate any symptoms associated with coronavirus-19. Ebola Screen: No symptoms or risks identified at this time. Initial Sepsis Screen: Does the patient meet any 2 criteria? No. Patient's initial sepsis screen is negative. Does the patient have a suspected source of infection? No. Patient's initial sepsis screen is negative. Risk Assessment: Do you want to hurt yourself or someone else? Patient reports no desire to harm self or others. Onset of symptoms was January 08, 2025. 15:26 Method Of Arrival: Wheelchair iw 15:26 Acuity: KHADAR 2 iw Historical: - Allergies: 15:28 Cinnamon; iw - PMHx: 15:28 Bipolar disorder; Anxiety; diabetes mellitus; Pancreatitis; Schizophrenia; iw - PSHx: 15:28 Cholecystectomy; ear tubes; ear tuebes; L hand fingers SX; iw - Immunization history:: Adult Immunizations up to date. - Infectious Disease History:: Denies. - Social history:: Smoking status: Patient denies any tobacco usage or history of. Screenin:58 [facility] ED Fall Risk Assessment (Adult) History of falling in the last 3 months, ph including since admission No falls in past 3 months (0 pts) Confusion or Disorientation No (0 pts) Intoxicated or Sedated No (0 pts) Impaired Gait No (0 pts) Mobility Assist Device Used No (0 pt) Altered Elimination No (0 pt) Score/Fall Risk Level 0 - 2 = Low Risk Oriented to surroundings, Maintained a safe environment, Hourly rounding (assess needs \T\ fall precautionary measures) done. Abuse screen: Denies threats or abuse. Denies injuries from another. Nutritional screening: No deficits noted. Tuberculosis screening: No symptoms or risk factors identified. Assessment: 16:57 General: Appears in no apparent distress. comfortable, Behavior is calm, cooperative, ph Reports fatigue for. Pain: Complains of pain in HEADACHE. Neuro: Level of Consciousness is awake, alert, obeys commands, Oriented to person, place, time, situation. Cardiovascular: Reports chest pain, nausea, Capillary refill < 3 seconds in bilateral fingers Patient's skin is warm and dry. Respiratory: Airway is patent Respiratory effort is even, unlabored, Respiratory pattern is regular, symmetrical. GI: Reports nausea. Derm: Skin is pink, warm \T\ dry. Musculoskeletal: Circulation, motion, and sensation intact. Range of motion: intact in all extremities. 18:00 Reassessment: Patient appears in no apparent distress at this time. Patient and/or ph family updated on plan of care and expected duration. Pain level reassessed. Patient is alert, oriented x 3, equal unlabored respirations, skin warm/dry/pink. 18:54 Reassessment: Patient appears in no apparent distress at this time. Patient and/or ph family updated on plan of care and expected duration. Pain level reassessed. Patient is alert, oriented x 3, equal unlabored respirations, skin warm/dry/pink. Vital Signs: 15:26 BP 130 / 83; Pulse 110; Resp 18; Temp 97.8; Pulse Ox 98% on R/A; iw 16:56 BP 118 / 82; Pulse 84; Resp 18; Pulse Ox 99% on R/A; ph 17:36 BP 134 / 91; Pulse 84; Resp 18; Pulse Ox 98% on R/A; ph 18:14 BP 133 / 88; Pulse 90; Resp 18; Pulse Ox 99% on R/A; ph 18:55 BP 138 / 91; Pulse 83; Resp 18; Pulse Ox 98% on R/A; ph 22:49 BP 113 / 78; Pulse 85; Resp 16; Temp 98.2; Pulse Ox 100% on R/A; dd2 [place] Coma Score: 22:49 Eye Response: spontaneous(4). Motor Response: obeys commands(6). Verbal Response: dd2 oriented(5). Total: 15. ED Course: 15:16 Patient arrived in ED. al6 15:16 Donald Mackenzie DO is Attending Physician. ms3 15:27 Triage completed. iw 15:29 Arm band placed on. iw 15:36 Lydia Burton, RN is Primary Nurse. ph 15:56 Basic Metabolic Panel Sent. cc6 15:56 CBC with Diff Sent. cc6 15:56 Troponin HS Sent. cc6 15:57 Inserted saline lock: 20 gauge in right antecubital area, using aseptic technique. cc6 Blood collected. Flushed with 10 mL NS. 15:57 Inserted saline lock: 20 gauge in left antecubital area, using aseptic technique. cc6 Flushed with 10 mL NS. 16:03 XRAY Chest (1 view) In Process Unspecified. EDMS 16:17 Notified ED physician of a critical lab result(s). glucose 582. jl7 16:58 Patient has correct armband on for positive identification. Bed in low position. Call ph light in reach. Side rails up X 1. court monitor on. Pulse ox on. NIBP on. Door closed. Noise minimized. Warm blanket given. 16:58 Patient maintains SpO2 saturation greater than 95% on room air. ph 18:54 No provider procedures requiring assistance completed. ph 19:04 Primary Nurse role handed off by Lydia Burton, RN rv1 19:18 Danis Preciado, RN is Primary Nurse. rg5 22:49 Provided Education on: D/C EDUCATION, F/U EDUCATION. dd2 22:49 IV discontinued, intact, bleeding controlled, No redness/swelling at site. Pressure dd2 dressing applied. Administered Medications: 15:54 Drug: NS 0.9% IV 1000 ml IV at 1000 ml once; to be given as a bolus over 60 minutes ph Route: IV; Rate: 1000 ml; Site: left antecubital; 19:00 Follow up: IV Status: Completed infusion; IV Intake: 1000ml rg5 18:18 Drug: Insulin Regular Human Sub-Q 10 units Sub-Q once {Co-Signature: ph (Lydia Burton RN).} Route: Sub-Q; Site: right upper arm; 20:55 Follow up: Response: No adverse reaction rg5 21:03 Drug: NS 0.9% IV 1000 ml IV at 1000 ml once; to be given as a bolus over 60 minutes rg5 Route: IV; Rate: 1000 ml; Site: right antecubital; 22:50 Follow up: IV Status: Completed infusion dd2 21:04 Drug: Insulin Regular Human Sub-Q 10 units Sub-Q once {Co-Signature: kj2 (liberty Chan RN).} Route: Sub-Q; Site: right lower abdomen; 22:08 Follow up: Response: No adverse reaction rg5 Medication: 16:58 VIS not applicable for this client. ph Intake: 19:00 IV: 1000ml; Total: 1000ml. rg5 Outcome: 22:24 Discharge ordered by MD. ms3 22:49 Discharged to home ambulatory, dd2 22:49 Condition: improved 22:49 Discharge instructions given to patient, Instructed on discharge instructions, follow up and referral plans. medication usage, Demonstrated understanding of instructions, follow-up care, medications, 22:51 Patient left the ED. dd2 Signatures: Dispatcher [employer] EDMS Erna Wright, RN RN Lydia Burton, RN RN Shazia Delgado RN RN jl7 Donald Mackenzie DO DO ms3 Garcias, Goldie rv1 Danis Preciado RN RN rg5 Anna Harris cc6 MARIAH TURNER RN RN dd2 Sana Oquendo alLydia Tejada RN Luciana Chan RN kj2 Corrections: (The following items were deleted from the chart) 15:29 15:26 BP 130 / 83; Pulse 110bpm; Resp 18bpm; Pulse Ox 98% RA; Temp 97.8F; [facility] 16:18 16:16 Notified ED physician of a critical lab result(s). glucose 682 jl7 jl7 16:18 16:17 Notified ED physician of a critical lab result(s). glucose 682 jl7 jl7
[2025-01-10 00:14] VITALS: BP 113/78; TEMP 98.2; O2SAT 100
--- NOTE | 2025-01-10 11:48 | EKG ---
Test Date: 2025-01-09 Test Time: 15:38:26 Guest Services Director: YARELI MEASUREMENT RESULTS: Intervals: Rate: 88 [place]: 142 QRSD: 88 QT: 348 QTc: 421 [place]: P: 35 [place]: 142 QRS: 40 T: 49 INTERPRETIVE STATEMENTS: Normal sinus rhythm Normal ECG Compared to ECG 10/11/2024 07:33:15 No significant changes Electronically Signed On 01-10-25 11:47:32 CDT by Agustin Beckett
== END 2025-01-09 22:51 | disposition home or self-care (01) ==
LOC: ER 15:13
DX: E11.65 Type 2 diabetes mellitus with hyperglycemia (principal); I10 Essential (primary) hypertension; Z91.02 Food additives allergy status
CPT/HCPCS: 96361; 93005; 85025; 80048; 36415; 82947 ×3; 84484; 71045; 96360; 96372; 99285; J1815 ×2; J7030 ×2

== ENCOUNTER 2025-05-21 05:21 | Emergency (ER) | payer OTHER ==
[2025-05-21] MEDS ORDERED: ONDANSETRON 4 MG/2 ML VIAL ONE (05:37)
[2025-05-21] MEDS ORDERED: KETOROLAC 30 MG/ML INJ ONE (05:37)
[2025-05-21] MEDS ORDERED: NA CHLORIDE 0.9% 1,000 ML ONE (05:37)
[2025-05-21] MEDS ORDERED: FAMOTIDINE 20 MG/2 ML VIAL IV ONE (05:37)
[2025-05-21 05:53] LABS: Absolute Lymphocytes (CBC) 2.7 K/uL (0.7-4.9); Hematocrit 42.6 % (39.6-49.0); Hemoglobin 14.6 g/dL (13.6-17.9); MCH 30.1 pg (27.0-35.0); MCHC 34.4 g/dL (32.0-36.0); MCV 87.7 fL (80-100); MPV 9.8 fL (7.6-11.3); Nucleated RBC Absolute Count 0.0 (0-0); Nucleated Red Blood Cells % 0.1 % (0-0); RBC Red Blood Cell Count 4.85 M/uL (4.33-5.43); White Blood Count 6.00 thou/uL (4.3-10.9)
[2025-05-21 06:16] LABS: ALT/SGPT 21 U/L (16-61); Albumin 3.4 g/dL (3.4-5.0); Albumin/Globulin Ratio 0.9 (1.1-1.8); Alkaline Phosphatase 54 U/L (45-117); Anion Gap 11.9 mEq/L (5.0-15.0); BUN Blood Urea Nitrogen 13 mg/dL (7-18); Globulin 3.6 g/dL (2.3-3.5); Glucose Level 322 mg/dL (74-106); Lipase 111 U/L (13-75)
[2025-05-21 06:20] LABS: AST/SGOT < 10 U/L (15-37); Potassium 3.9 mEq/L (3.5-5.1)
[2025-05-21 06:31] LABS: Sqamous Epithelial None Seen /HPF (None Seen); Urine Micro Reflex YN NO BILL MICROSCOPIC
--- NOTE | 2025-05-21 07:31 | RAD REPORT ---
EXAMINATION: CT ABDOMEN AND PELVIS WITHOUT CONTRAST CLINICAL INDICATION: Abdominal pain TECHNIQUE: CT abdomen and pelvis was performed, as per department protocol. IV contrast and oral was not administered.Axial, sagittal and coronal reconstructions were obtained. One or more of the following dose reduction techniques were used: Automated exposure control, adjustment of the mA and/o r kV according to the patient size, and/or iterative reconstruction. Unless otherwise specified, incidental findings do not require dedicated imaging follow-up. [id number]. COMPARISON: 2024 FINDINGS: The lack of intravenous and oral contrast limits evaluation of solid organs, vessels and bowel. Mild hepatomegaly. spleen, pancreas, adrenals and kidneys appear grossly normal Cholecystectomy No evidence of diverticulitis. Normal appendix IMPRESSION: No acute abnormality displayed
--- NOTE | 2025-05-21 07:36 | EDPHYS ---
Physician Documentation [facility] Name: Joaquin Bustos II Age: 29 yrs Sex: Male : 1995 Arrival Date: 05/21/2025 Time: 05:21 Bed 8 Private MD: ED Physician Deedee Mujica HPI: 05/21 05:32 This 29 yrs old Male presents to ER via Unassigned with complaints of sp4 Abdominal Pain, Nausea/Vomiting. 06:16 Patient with history of diabetes presents with acute abdominal pain nausea vomiting.. sp4 06:17 Patient reports symptoms began 5 days ago and include left upper quadrant abdominal sp4 pain, nausea, vomiting, diarrhea and fatigue. Historical: - Allergies: 05:45 Cinnamon; kd3 - PMHx: 05:45 Anxiety; Bipolar disorder; Pancreatitis; diabetes mellitus; Schizophrenia; kd3 - PSHx: 05:45 Cholecystectomy; ear tubes; ear tuebes; L hand fingers SX; kd3 - Immunization history:: Adult Immunizations up to date. - Infectious Disease History:: Denies. - Social history:: Smoking status: Patient denies any tobacco usage or history of. - Family history:: not pertinent. ROS: 06:17 Constitutional: Negative for fever, chills, and weight loss, positive nausea, positive sp4 vomiting, positive abdominal pain, positive diarrhea 06:17 All other systems are negative, Exam: 06:17 Constitutional: This is a well developed, well nourished patient who is awake, alert, sp4 and in no acute distress. Head/Face: Normocephalic, atraumatic. Eyes: Pupils equal round and reactive to light, extra-ocular motions intact. Lids and lashes normal. Conjunctiva and sclera are not injected. Cornea within normal limits. Periorbital areas with no swelling, redness, or edema. ENT: Nares patent. No nasal discharge, no septal abnormalities noted. Tympanic membranes are normal and external auditory canals are clear. Oropharynx with no redness, swelling, or masses, exudates, or evidence of obstruction, uvula midline. Mucous membranes moist. Neck: Trachea midline, no thyromegaly or masses palpated, and no cervical lymphadenopathy. Supple, full range of motion without nuchal rigidity, or vertebral point tenderness. Chest/axilla: Normal chest wall appearance and motion. Nontender with no deformity. No lesions are appreciated. Cardiovascular: Regular rate and rhythm with a normal S1 and S2. No gallops, murmurs, or rubs. No pulse deficits. Respiratory: Lungs have equal breath sounds bilaterally, clear to auscultation and percussion. No rales, rhonchi or wheezes noted. No increased work of breathing, no retractions or nasal flaring. Abdomen/GI: Soft, with normal bowel sounds. No distension or tympany. No guarding or rebound. No evidence of tenderness throughout. Back: No spinal tenderness. No costovertebral tenderness. Skin: Warm, dry with normal turgor. Normal color with no rashes, no lesions, and no evidence of cellulitis. MS/ Extremity: Pulses equal, no cyanosis. Neurovascular intact. Full, normal range of motion. Neuro: Awake and alert, GCS 15, oriented to person, place, time, and situation. Cranial nerves II-XII grossly intact. Motor strength 5/5 in all extremities. Sensory grossly intact. Psych: Awake, alert, with orientation to person, place and time. Behavior, mood, and affect are within normal limits Vital Signs: 05:41 BP 110 / 81; Pulse 59; Resp 16; Temp 97.9(O); Pulse Ox 98% on R/A; Weight 82.55 kg; kd3 Height 5 ft. 11 in. ; Pain 7/10; 06:05 BP 115 / 75; Pulse 62; Resp 18; Pulse Ox 98% on R/A; kd3 07:24 BP 107 / 68; Pulse 57; Resp 16; Pulse Ox 96% on R/A; hb 05:41 Body Mass Index 25.38 (82.55 kg, 180.34 cm) kd3 05:41 Pain Scale: Adult kd3 Lewis Coma Score: 06:17 Eye Response: spontaneous(4). Motor Response: obeys commands(6). Verbal Response: sp4 oriented(5). Total: 15. MDM: 06:16 Medical Screening Exam initiated sp4 06:17 Differential diagnosis: Nonspecific abd pain, gastritis, pancreatitis, diverticulitis, sp4 viral gastroenteritis, gastroenteritis. Data reviewed: vital signs, nurses notes, lab test result(s), radiologic studies, CT scan. Consideration of Admission/Observation Escalation of care including admission/observation considered. 07:05 Transition of care: After a detail discussion of the patient's case, care is sp4 transferred to Deedee Mujica MD. 07:34 ED course: Patient signed out to me by nighttime physician. Patient is a 29-year-old sp3 male with history of bipolar disease, pancreatitis, diabetes, schizophrenia who presents with mild epigastric abdominal pain. Lipase is mildly elevated. Remainder of labs and CT demonstrate no significant abnormality. Will safely discharge patient home at this time.. 05/21 05:33 Order name: CBC with Diff; Complete Time: 06:49 sp4 05/21 05:33 Order name: CMP; Complete Time: 06:49 sp4 05/21 05:33 Order name: Lipase; Complete Time: 06:49 sp4 05/21 06:13 Order name: UA W/ Microscopic; Complete Time: 06:49 sp4 05/21 06:13 Order name: CT Abd/Pelvis - Without Contrast; Complete Time: 07:34 sp4 05/21 05:33 Order name: IV Saline Lock; Complete Time: 05:47 sp4 05/21 05:33 Order name: Labs collected and sent; Complete Time: 05:47 sp4 Administered Medications: 05:47 Drug: Famotidine IVP 20 mg IVP once; dilute with 10 mL 0.9% NaCl; give over 2 minutes kd3 Route: IVP; Site: right antecubital; 07:52 Follow up: Response: No adverse reaction bp 05:47 Drug: NS 0.9% IV 1000 ml IV at 1 bolus Per protocol; to be given as a bolus over 60 kd3 minutes Route: IV; Rate: 1 bolus; Site: right antecubital; 07:53 Follow up: IV Status: Completed infusion bp 05:48 Drug: TORadol - Ketorolac IVP 30 mg IVP once Route: IVP; Site: right antecubital; kd3 07:53 Follow up: Response: No adverse reaction bp 05:48 Drug: Ondansetron IVP 8 mg IVP once; over 2 minutes Route: IVP; Site: right antecubital;kd3 07:53 Follow up: Response: No adverse reaction bp Disposition Summary: 05/21/25 07:35 Discharge Ordered Notes: Location: Home sp3 Condition: Stable sp3 Diagnosis - Abdominal pain, pancreatitis sp3 Followup: sp3 - With: Private Physician - When: Upon discharge from the Emergency Department - Reason: Continuance of care Discharge Instructions: - Discharge Summary Sheet sp3 - Chronic Pancreatitis sp3 Forms: - Work release form ph - Medication Reconciliation Form sp3 - Antibiotic Education sp3 - Prescription Opioid Use sp3 - Patient Portal Instructions sp3 - Leadership Thank You Letter sp3 Signatures: Dispatcher [employer] Deedee Oakes MD MD sp3 Jailyn Hughes RN RN kd3 Zay Mccormick MD MD sp4 Yohan Monroy RN bp
--- NOTE | 2025-05-21 07:36 | ER ---
Nurse's Notes [facility] Name: Joaquin Bustos II Age: 29 yrs Sex: Male : 1995 Arrival Date: 05/21/2025 Time: 05:21 Bed 8 Private MD: Diagnosis: Abdominal pain, pancreatitis Presentation: 05/21 05:41 Chief complaint: Patient states: Last Pavel night i started having some abdominal kd3 pains and started vomiting a couple of days ago and i have been very fatigued. I have had some diarrhea the past couple of days as well. I have not traveled outside the country recently and i have not been in contact with anyone who has been sick. My pain is mostly in the left upper quadrant and i do not have a gall bladder. Coronavirus screen: Vaccine status: Patient reports being unvaccinated. Ebola Screen: No symptoms or risks identified at this time. Initial Sepsis Screen: Does the patient meet any 2 criteria? No. Patient's initial sepsis screen is negative. Does the patient have a suspected source of infection? No. Patient's initial sepsis screen is negative. Risk Assessment: Do you want to hurt yourself or someone else? Patient reports no desire to harm self or others. Onset of symptoms was May 17, 2025. 05:41 Method Of Arrival: Ambulatory kd3 05:41 Acuity: KHADAR 3 kd3 Triage Assessment: 05:45 General: Appears in no apparent distress. Behavior is calm, cooperative. Pain: kd3 Complains of pain in left upper quadrant. GI: Abdomen is non-distended. Historical: - Allergies: 05:45 Cinnamon; kd3 - PMHx: 05:45 Anxiety; Bipolar disorder; Pancreatitis; diabetes mellitus; Schizophrenia; kd3 - PSHx: 05:45 Cholecystectomy; ear tubes; ear tuebes; L hand fingers SX; kd3 - Immunization history:: Adult Immunizations up to date. - Infectious Disease History:: Denies. - Social history:: Smoking status: Patient denies any tobacco usage or history of. - Family history:: not pertinent. Screenin:46 [facility] ED Fall Risk Assessment (Adult) History of falling in the last 3 months, kd3 including since admission No falls in past 3 months (0 pts) Confusion or Disorientation No (0 pts) Intoxicated or Sedated No (0 pts) Impaired Gait No (0 pts) Mobility Assist Device Used No (0 pt) Altered Elimination No (0 pt) Score/Fall Risk Level 0 - 2 = Low Risk Maintained a safe environment. Abuse screen: Denies threats or abuse. Denies injuries from another. Nutritional screening: No deficits noted. Tuberculosis screening: No symptoms or risk factors identified. Assessment: 05:45 General: Appears in no apparent distress. Behavior is calm, cooperative. Pain: kd3 Complains of pain in left upper quadrant. Neuro: Level of Consciousness is awake, alert, obeys commands, Oriented to person, place, time, situation. Cardiovascular: Patient's skin is warm and dry. Respiratory: Airway is patent Trachea midline Respiratory effort is even, unlabored, Respiratory pattern is regular, symmetrical. GI: Bowel sounds present X 4 quads. Abd is soft X 4 quads Reports upper abdominal pain, diarrhea, nausea, vomiting. 07:25 Reassessment: Patient appears in no apparent distress at this time. Patient and/or hb family updated on plan of care and expected duration. Pain level reassessed. Patient is alert, oriented x 3, equal unlabored respirations, skin warm/dry/pink. Vital Signs: 05:41 BP 110 / 81; Pulse 59; Resp 16; Temp 97.9(O); Pulse Ox 98% on R/A; Weight 82.55 kg; kd3 Height 5 ft. 11 in. ; Pain 7/10; 06:05 BP 115 / 75; Pulse 62; Resp 18; Pulse Ox 98% on R/A; kd3 07:24 BP 107 / 68; Pulse 57; Resp 16; Pulse Ox 96% on R/A; hb 05:41 Body Mass Index 25.38 (82.55 kg, 180.34 cm) kd3 05:41 Pain Scale: Adult kd3 Lewis Coma Score: 06:17 Eye Response: spontaneous(4). Motor Response: obeys commands(6). Verbal Response: sp4 oriented(5). Total: 15. ED Course: 05:23 Patient arrived in ED. [id number] 05:26 Zay Mccormick MD is Attending Physician. sp4 05:41 Jailyn Hughes, EMILY is Primary Nurse. kd3 05:45 Triage completed. kd3 05:45 Arm band placed on left wrist. kd3 05:46 Patient has correct armband on for positive identification. Provided Education on: kd3 blood work . 05:47 CBC with Diff Sent. kd3 05:47 CMP Sent. kd3 05:47 Lipase Sent. kd3 05:47 Inserted saline lock: 20 gauge in right antecubital area, using aseptic technique. kd3 Blood collected. Flushed with 10 mL NS. 06:38 CT Abd/Pelvis - Without Contrast In Process Unspecified. EDMS 07:09 Attending Physician role handed off by Zay Mccormick MD sp3 07:09 Deedee Mujica MD is Attending Physician. sp3 07:52 No provider procedures requiring assistance completed. IV discontinued, intact, bp bleeding controlled, No redness/swelling at site. Pressure dressing applied. Administered Medications: 05:47 Drug: Famotidine IVP 20 mg IVP once; dilute with 10 mL 0.9% NaCl; give over 2 minutes kd3 Route: IVP; Site: right antecubital; 07:52 Follow up: Response: No adverse reaction bp 05:47 Drug: NS 0.9% IV 1000 ml IV at 1 bolus Per protocol; to be given as a bolus over 60 kd3 minutes Route: IV; Rate: 1 bolus; Site: right antecubital; 07:53 Follow up: IV Status: Completed infusion bp 05:48 Drug: TORadol - Ketorolac IVP 30 mg IVP once Route: IVP; Site: right antecubital; kd3 07:53 Follow up: Response: No adverse reaction bp 05:48 Drug: Ondansetron IVP 8 mg IVP once; over 2 minutes Route: IVP; Site: right antecubital;kd3 07:53 Follow up: Response: No adverse reaction bp Medication: 05:47 VIS not applicable for this client. kd3 Outcome: 07:35 Discharge ordered by . sp3 07:52 Discharged to home ambulatory, bp 07:52 Condition: stable 07:52 Discharge instructions given to patient, Instructed on discharge instructions, follow up and referral plans. Demonstrated understanding of instructions, follow-up care, 07:53 Patient left the ED. bp Signatures: Dispatcher [employer] EDWI Zohra Mcdaniel RN RN Yohan Reich RN RN bp Deedee Mujica MD MD sp3 Luna [id number] Jailyn Hughes, RN RN kd3 Zay Mccormick MD MD sp4
[2025-05-21 14:47] VITALS: TEMP 97.9
[2025-05-21 14:50] VITALS: BP 107/68; O2SAT 96
== END 2025-05-21 07:53 | disposition home or self-care (01) ==
LOC: ER 05:21
DX: K85.90 Acute pancreatitis without necrosis or infection, unspecified (principal)
CPT/HCPCS: 96361; 85025; 81001; 36415; 83690; 80053; 74176; 96375; 96374; 99284; J2405; J7030

== ENCOUNTER 2025-06-19 11:23 | Emergency (ER) | payer OTHER ==
[2025-06-19 11:58] LABS: Absolute Lymphocytes (CBC) 2.6 K/uL (0.7-4.9); Hematocrit 41.7 % (39.6-49.0); Hemoglobin 14.7 g/dL (13.6-17.9); MCH 29.8 pg (27.0-35.0); MCHC 35.2 g/dL (32.0-36.0); MCV 84.8 fL (80-100); MPV 9.5 fL (7.6-11.3); Nucleated RBC Absolute Count 0.0 (0-0); Nucleated Red Blood Cells % 0.1 % (0-0); RBC Red Blood Cell Count 4.92 M/uL (4.33-5.43); White Blood Count 9.20 thou/uL (4.3-10.9)
[2025-06-19] MEDS ORDERED: KETOROLAC 30 MG/ML INJ ONE (12:09)
[2025-06-19] MEDS ORDERED: NA CHLORIDE 0.9% 1,000 ML ONE (12:09)
[2025-06-19 12:17] LABS: D-Dimer 0.229 FEUug/mL (0-0.500); PT Prothrombin Time 9.8 SECONDS (10-13.0); Protime INR 0.86
[2025-06-19 12:19] LABS: ALT/SGPT 30 U/L (16-61); AST/SGOT 15 U/L (15-37); Albumin 3.4 g/dL (3.4-5.0); Albumin/Globulin Ratio 1.0 (1.1-1.8); Alkaline Phosphatase 49 U/L (45-117); Anion Gap 11.5 mEq/L (5.0-15.0); BUN Blood Urea Nitrogen 10 mg/dL (7-18); Bilirubin Indirect, Calculated 0.2 mg/dL (0.2-0.8); Globulin 3.4 g/dL (2.3-3.5); Glucose Level 388 mg/dL (74-106); Magnesium 1.9 mg/dL (1.6-2.4); NT PRO-BNP 7 pg/mL (<125); Potassium 3.5 mEq/L (3.5-5.1); Troponin High Sensitivity 9.6 pg/mL (<58.9)
--- NOTE | 2025-06-19 12:49 | RAD REPORT ---
EXAMINATION: ONE VIEW CHEST XR CLINICAL INDICATION: Male, 29 years old.,CHEST PAIN TECHNIQUE: Frontal chest projection is submitted. Examination is limited by patient positioning and t echnique. COMPARISON: 03/23/2025 FINDINGS: The lungs are well inflated and clear. No pneumothorax or sizable effusion. The heart is normal in s ize. Mediastinal contours are unremarkable. IMPRESSION: No acute intrathoracic abnormalities.
--- NOTE | 2025-06-19 12:55 | EDPHYS ---
Physician Documentation [facility] Name: Joaquin Bustos II Age: 29 yrs Sex: Male : 1995 Arrival Date: 06/19/2025 Time: 11:23 Bed 5 Private MD: ED Physician Deedee Mujica HPI: 06/19 11:36 This 29 yrs old Male presents to ER via Unassigned with complaints of Chest sp3 Pain. 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 Patient states he had sudden onset of substernal chest pain rating to the left shoulder and left upper extremity. He had mild shortness of breath in addition to this. He denies headache, neck pain, back pain, abdominal pain, vomiting, diarrhea, syncope, bleeding, rash, known sick contacts, travel history, prolonged immobilization, or any other signs or symptoms on ROS at this time.. Historical: - Allergies: 11:25 Cinnamon; db - Home Meds: 11:25 metformin Oral [Active]; db - PMHx: 11:25 Bipolar disorder; diabetes mellitus; Pancreatitis; Anxiety; Schizophrenia; db - PSHx: 11:25 ear tubes; L hand fingers SX; Cholecystectomy; ear tuebes; db - Immunization history:: Adult Immunizations unknown. - Infectious Disease History:: Denies. - Social history:: Smoking status: unknown. ROS: 11:38 Constitutional: Negative for fever, chills, and weight loss, Eyes: Negative for injury, sp3 pain, redness, and discharge, ENT: Negative for injury, pain, and discharge, Neck: Negative for injury, pain, and swelling, Respiratory: Negative for shortness of breath, cough, wheezing, and pleuritic chest pain, Back: Negative for injury and pain, MS/Extremity: Negative for injury and deformity, Skin: Negative for injury, rash, and discoloration, Neuro: Negative for headache, weakness, numbness, tingling, and seizure, Psych: Negative for depression, anxiety, suicide ideation, homicidal ideation, and hallucinations, Allergy/Immunology: Negative for hives, rash, and allergies, Endocrine: Negative for neck swelling, polydipsia, polyuria, polyphagia, and marked weight changes, Hematologic/Lymphatic: Negative for swollen nodes, abnormal bleeding, and unusual bruising, 11:38 All other systems are negative, Exam: 11:38 Constitutional: This is a well developed, well nourished patient who is awake, alert, sp3 and in no acute distress. Head/Face: Normocephalic, atraumatic. Eyes: Pupils equal round and reactive to light, extra-ocular motions intact. Lids and lashes normal. Conjunctiva and sclera are non-icteric and not injected. Cornea within normal limits. Periorbital areas with no swelling, redness, or edema. Neck: Trachea midline, no thyromegaly or masses palpated, and no cervical lymphadenopathy. Supple, full range of motion without nuchal rigidity, or vertebral point tenderness. No Meningismus. Chest/axilla: Normal chest wall appearance and motion. Nontender with no deformity. No lesions are appreciated. Cardiovascular: Regular rate and rhythm with a normal S1 and S2. No gallops, murmurs, or rubs. Normal PMI, no JVD. No pulse deficits. Respiratory: Lungs have equal breath sounds bilaterally, clear to auscultation and percussion. No rales, rhonchi or wheezes noted. No increased work of breathing, no retractions or nasal flaring. Abdomen/GI: Soft, non-tender, with normal bowel sounds. No distension or tympany. No guarding or rebound. No evidence of tenderness throughout. Back: No spinal tenderness. No costovertebral tenderness. Full range of motion. Skin: Warm, dry with normal turgor. Normal color with no rashes, no lesions, and no evidence of cellulitis. MS/ Extremity: Pulses equal, no cyanosis. Neurovascular intact. Full, normal range of motion. Neuro: Awake and alert, GCS 15, oriented to person, place, time, and situation. Cranial nerves II-XII grossly intact. Motor strength 5/5 in all extremities. Sensory grossly intact. Cerebellar exam normal. Normal gait. Psych: Awake, alert, with orientation to person, place and time. Behavior, mood, and affect are within normal limits. 11:38 ECG was reviewed by the Attending Physician. EKG demonstrates normal sinus rhythm at 71 bpm with normal intervals, normal QRS, normal axis and normal ST/T segments without evidence of acute ischemia. Vital Signs: 11:25 BP 114 / 72; Pulse 76; Resp 16; Temp 98; Pulse Ox 96% ; Weight 93.44 kg; Height 5 ft. db 10 in. ; 12:00 BP 108 / 71; Pulse 70; Resp 14; Pulse Ox 96% on R/A; db 11:25 Body Mass Index 29.56 (93.44 kg, 177.8 cm) db MDM: 11:34 Medical Screening Exam initiated 3 11:38 Data reviewed: vital signs, nurses notes, lab test result(s), EKG, radiologic studies. 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 Differential diagnosis includes heat exhaustion, musculoskeletal, gastritis, and to a much lesser degree ACS, PE or other pathology. Will obtain general labs including troponin and D-dimer, chest x-ray, EKG and general supportive care. Normal saline and ketorolac for symptomatic control.. 12:53 ED course: Full workup negative. We will safely discharge patient home at this time.. 06/19 11:40 Order name: Basic Metabolic Panel; Complete Time: 12:53 06/19 11:40 Order name: CBC with Diff; Complete Time: 12:53 06/19 11:40 Order name: D-Dimer; Complete Time: 12:53 06/19 11:40 Order name: LFT's; Complete Time: 12:53 06/19 11:40 Order name: Magnesium; Complete Time: 12:53 06/19 11:40 Order name: NT PRO-BNP; Complete Time: 12:53 [facility] 06/19 11:40 Order name: PT-INR; Complete Time: 12:53 06/19 11:40 Order name: Troponin HS; Complete Time: 12:53 [facility] 06/19 11:40 Order name: XRAY Chest (1 view); Complete Time: 12:53 [facility] 06/19 11:40 Order name: Cardiac monitoring; Complete Time: 11:41 06/19 11:40 Order name: EKG - Nurse/Tech; Complete Time: 11:42 06/19 11:40 Order name: IV Saline Lock; Complete Time: 11:54 06/19 11:40 Order name: Labs collected and sent; Complete Time: 11:54 [facility] 06/19 11:40 Order name: O2 Per Protocol; Complete Time: 11:42 sp3 06/19 11:40 Order name: O2 Sat Monitoring; Complete Time: 11:42 sp3 Administered Medications: 12:00 Drug: Ketorolac IVP 30 mg IVP once Route: IVP; Site: right forearm; bp 12:00 Drug: NS 0.9% IV 1000 ml IV at 1000 ml once; to be given as a bolus over 60 minutes bp Route: IV; Rate: 1000 ml; Site: right forearm; Disposition Summary: 06/19/25 12:54 Discharge Ordered Notes: Location: Home sp3 Condition: Stable sp3 Diagnosis - Chest pain, unspecified sp3 Followup: sp3 - With: Private Physician - When: Upon discharge from the Emergency Department - Reason: Continuance of care Discharge Instructions: - Discharge Summary Sheet sp3 - Nonspecific Chest Pain, Adult sp3 Forms: - Medication Reconciliation Form sp3 - Antibiotic Education sp3 - Prescription Opioid Use sp3 - Patient Portal Instructions sp3 - Leadership Thank You Letter sp3 - Work release form bc6 Signatures: Dispatcher [employer] EDYohan Walls, RN RN bp Deedee Mujica MD MD sp3 Aubree Laboy RN RN db Corrections: (The following items were deleted from the chart) 11:41 11:41 BASIC METABOLIC PANEL+C.LAB.BRZ ordered. EDMS EDMS 11:41 11:41 CBC+H.LAB.BRZ ordered. EDMS EDMS 11:41 11:41 D-DIMER+COAG.LAB.BRZ ordered. EDMS EDMS 11:41 11:41 HEPATIC FUNCTION+C.LAB.BRZ ordered. EDMS EDMS 11:41 11:41 MAGNESIUM+C.LAB.BRZ ordered. EDMS EDMS 11:41 11:41 PROBNP+C.LAB.BRZ ordered. EDMS EDMS 11:41 11:41 PROTIME (+INR)+COAG.LAB.BRZ ordered. EDMS EDMS 11:41 11:41 Troponin High Sensitivity+C.LAB.BRZ ordered. EDMS EDMS 11:41 11:41 Chest Single View+RAD.RAD.BRZ ordered. EDMS EDMS
--- NOTE | 2025-06-19 12:55 | ER ---
Nurse's Notes [facility] Name: Joaquin Bustos II Age: 29 yrs Sex: Male : 1995 Arrival Date: 06/19/2025 Time: 11:23 Bed 5 Private MD: Diagnosis: Chest pain, unspecified Presentation: 06/19 11:25 Chief complaint: EMS states: CHEST PAIN STARTED TODAY WHILE DRIVING A FORK LIFT. PAIN db RADIATING TO LEFT ARM. EMS GAVE 250 ML NS BOLUS. Coronavirus screen: Client denies travel out of the [place] in the last 14 days. At this time, the client does not indicate any symptoms associated with coronavirus-19. Ebola Screen: Patient negative for fever greater than or equal to 101.5 degrees Fahrenheit, and additional compatible Ebola Virus Disease symptoms Patient denies exposure to infectious person. Patient denies travel to an Ebola-affected area in the 21 days before illness onset. No symptoms or risks identified at this time. Initial Sepsis Screen: Does the patient meet any 2 criteria? No. Patient's initial sepsis screen is negative. Does the patient have a suspected source of infection? No. Patient's initial sepsis screen is negative. Risk Assessment: Do you want to hurt yourself or someone else? Patient reports no desire to harm self or others. Onset of symptoms was June 19, 2025. Care prior to arrival: Medication(s) given: Normal saline infusion, 250 ML IV initiated. 20 GA, in the right wrist, Glucose check: 333. 11:25 Method Of Arrival: EMS: BASF db 11:25 Acuity: KHADAR 2 db Historical: - Allergies: 11:25 Cinnamon; db - Home Meds: 11:25 metformin Oral [Active]; db - PMHx: 11:25 Bipolar disorder; diabetes mellitus; Pancreatitis; Anxiety; Schizophrenia; db - PSHx: 11:25 ear tubes; L hand fingers SX; Cholecystectomy; ear tuebes; db - Immunization history:: Adult Immunizations unknown. - Infectious Disease History:: Denies. - Social history:: Smoking status: unknown. Screenin:00 [facility] ED Fall Risk Assessment (Adult) History of falling in the last 3 months, db including since admission No falls in past 3 months (0 pts) Confusion or Disorientation No (0 pts) Intoxicated or Sedated No (0 pts) Impaired Gait No (0 pts) Mobility Assist Device Used No (0 pt) Altered Elimination No (0 pt) Score/Fall Risk Level 0 - 2 = Low Risk Oriented to surroundings, Maintained a safe environment. Abuse screen: Denies threats or abuse. Denies injuries from another. Nutritional screening: No deficits noted. Tuberculosis screening: No symptoms or risk factors identified. Assessment: 11:40 Reassessment: SEE TRIAGE FOR INITIAL ASSESSMENT. db 12:19 Reassessment: Patient appears in no apparent distress at this time. Reassessment: db Patient is alert, oriented x 3, equal unlabored respirations, skin warm/dry/pink. Patient is alert/active/playful, equal unlabored respirations, skin warm/dry/pink. General: Appears in no apparent distress. comfortable, Behavior is calm, cooperative. Neuro: Level of Consciousness is awake, alert, obeys commands, Oriented to person, place, time, situation. Respiratory: Airway is patent Respiratory effort is even, unlabored, Respiratory pattern is regular, symmetrical. Vital Signs: 11:25 BP 114 / 72; Pulse 76; Resp 16; Temp 98; Pulse Ox 96% ; Weight 93.44 kg; Height 5 ft. db 10 in. ; 12:00 BP 108 / 71; Pulse 70; Resp 14; Pulse Ox 96% on R/A; db 11:25 Body Mass Index 29.56 (93.44 kg, 177.8 cm) db ED Course: 11:31 Patient arrived in ED. bc6 11:33 Deedee Mujica MD is Attending Physician. sp3 11:36 Aubree Laboy, RN is Primary Nurse. db 11:38 Triage completed. db 11:40 Arm band placed on Patient placed in an exam room. db 11:41 Maintain EMS IV. Dressing intact. Good blood return noted. Site clean \T\ dry. Gauge \T\ db site: 20 G WRIST. 12:16 XRAY Chest (1 view) In Process Unspecified. EDMS 12:22 Patient has correct armband on for positive identification. Bed in low position. Call db light in reach. Side rails up X 1. Client placed on continuous cardiac and pulse oximetry monitoring. NIBP monitoring applied. sr account executive on. Pulse ox on. NIBP on. Warm blanket given. Pillow given. Administered Medications: 12:00 Drug: Ketorolac IVP 30 mg IVP once Route: IVP; Site: right forearm; bp 12:00 Drug: NS 0.9% IV 1000 ml IV at 1000 ml once; to be given as a bolus over 60 minutes bp Route: IV; Rate: 1000 ml; Site: right forearm; Outcome: 12:54 Discharge ordered by MD. méndez 13:34 Patient left the ED. bc6 Signatures: Dispatcher [employer] EDYohan Walls, RN RN Deedee Manzo MD MD sp3 Aubree Laboy RN RN db Joselyn Merrill 6
[2025-06-19 13:39] VITALS: TEMP 98; O2SAT 96
[2025-06-19 13:40] VITALS: BP 108/71
== END 2025-06-19 13:34 | disposition home or self-care (01) ==
LOC: ER 11:23
DX: R07.9 Chest pain, unspecified (principal); F41.9 Anxiety disorder, unspecified; E10.9 Type 1 diabetes mellitus without complications
CPT/HCPCS: 93005; 85025; 80048; 36415; 83735; 85610; 85379; 80076; 84484; 83880; 71045; 96374; 99284; J7030

== ENCOUNTER 2025-06-28 11:03 | Emergency (ER) | payer OTHER ==
[2025-06-28] MEDS ORDERED: ONDANSETRON 4 MG/2 ML VIAL ONE (12:38)
[2025-06-28] MEDS ORDERED: NA CHLORIDE 0.9% 1,000 ML ONE (12:39)
[2025-06-28] MEDS ORDERED: PANTOPRAZOLE 40 MG INJ ONE (12:39)
[2025-06-28 12:44] LABS: Absolute Lymphocytes (CBC) 1.8 K/uL (0.7-4.9); Hematocrit 40.4 % (39.6-49.0); Hemoglobin 14.0 g/dL (13.6-17.9); MCH 29.7 pg (27.0-35.0); MCHC 34.8 g/dL (32.0-36.0); MCV 85.5 fL (80-100); MPV 10.2 fL (7.6-11.3); Nucleated RBC Absolute Count 0.0 (0-0); Nucleated Red Blood Cells % 0.1 % (0-0); RBC Red Blood Cell Count 4.72 M/uL (4.33-5.43); White Blood Count 6.10 thou/uL (4.3-10.9)
[2025-06-28 12:57] LABS: PT Prothrombin Time 9.6 SECONDS (10-13.0); PTT, Activated Partial Thromb 28.9 SECONDS (27.2-37.4); Protime INR 0.85
[2025-06-28 13:09] LABS: ALT/SGPT 19 U/L (16-61); Albumin 3.2 g/dL (3.4-5.0); Albumin/Globulin Ratio 0.9 (1.1-1.8); Alkaline Phosphatase 53 U/L (45-117); Anion Gap 11.7 mEq/L (5.0-15.0); BUN Blood Urea Nitrogen 13 mg/dL (7-18); Globulin 3.4 g/dL (2.3-3.5); Glucose Level 357 mg/dL (74-106); Lipase 124 U/L (13-75); Potassium 3.7 mEq/L (3.5-5.1)
[2025-06-28 13:11] LABS: AST/SGOT < 10 U/L (15-37)
--- NOTE | 2025-06-28 14:25 | RAD REPORT ---
Exam: CT chest and abdomen with contrast TECHNIQUE: Computed axial tomography of the chest and abdomen obtained. Coronal and sagittal reconstruction perf ormed. 100 cc Isovue-300 administered intravenously. Oral contrast was not given which limits evaluation of bowel.One or more of the following dose reduction techniques were used: Automated exposure control, adjustment of the mA and/or kV according to the patient size, and/or iterative reconstruction. Unless otherwise specified, incidental findings do not require dedicated imaging follow-up. [id number]. Clinical history chest and abdominal pain. Hemoptysis. Comparison May 2025 FINDINGS: Lungs are clear. No mediastinal or hilar lymphadenopathy. No pleural effusion. No pericardial effusion. While the distal esophagus appears thickened Cholecystectomy Mild hepatomegaly. The spleen is borderline enlarged. The pancreas, adrenals and kidneys unremarkable. Visualized bowel caliber and wall thickness normal IMPRESSION: Apparent thickening of the wall of the distal esophagus could be secondary to inflammation pathology such as or incomplete distention Mild hepatomegaly
--- NOTE | 2025-06-28 14:58 | EDPHYS ---
Physician Documentation [facility] Name: Joaquin Bustos II Age: 29 yrs Sex: Male : 1995 Arrival Date: 06/28/2025 Time: 11:03 Bed 13 Private MD: ED Physician Wellington Rios HPI: 06/28 16:42 This 29 yrs old Male presents to ER via Ambulatory with complaints of Vomiting sb4 - blood. 16:42 Patient states that he is a type II diabetic, insulin-dependent but has been out of his sb4 insulins and has only been using his metformin. States that over the past 2 days he has been nauseous and throwing up. States that this morning he had 2 episodes of emesis with blood in them. Also reports pain in his left upper quadrant. Denies any melanotic stools. Historical: - Allergies: 11:13 Cinnamon; db - PMHx: 11:13 Bipolar disorder; diabetes mellitus; Anxiety; Schizophrenia; Pancreatitis; db - PSHx: 11:13 ear tubes; Cholecystectomy; L hand fingers SX; ear tuebes; db - Immunization history:: Adult Immunizations unknown. - Infectious Disease History:: Denies. - Social history:: Smoking status: Patient denies any tobacco usage or history of. ROS: 16:42 Constitutional: Negative for fever, chills, and weight loss, sb4 16:42 Abdomen/GI: Positive for abdominal pain, nausea and vomiting, hematemesis, 16:42 All other systems are negative, Exam: 16:42 Head/Face: Normocephalic, atraumatic. Eyes: Extra-ocular motions intact. Periorbital sb4 areas with no swelling, redness, or edema. ENT: Mucous membranes moist. Cardiovascular: Regular rate and rhythm with a normal S1 and S2. Respiratory: No increased work of breathing, no retractions or nasal flaring. Abdomen/GI: Soft, non-tender, no distension. Skin: Warm, dry with normal turgor. Normal color with no rashes, no lesions, and no evidence of cellulitis. 16:42 Constitutional: The patient appears alert, awake, uncomfortable, Vital Signs: 11:11 BP 127 / 76; Pulse 98; Resp 16; Temp 97.6(O); Pulse Ox 97% ; Weight 82.55 kg; Height 5 db ft. 11 in. ; 13:03 BP 124 / 74; Pulse 88; Resp 16; Pulse Ox 99% ; hb 15:30 BP 128 / 78; Pulse 82; Resp 16; Pulse Ox 99% ; hb 11:11 Body Mass Index 25.38 (82.55 kg, 180.34 cm) db MDM: 11:15 Medical Screening Exam initiated sb4 16:43 Differential diagnosis: gastritis, pancreatitis, viral gastroenteritis, Esophageal sb4 varices, Eufemia-Soares tear, peptic ulcer. Data reviewed: vital signs, nurses notes, lab test result(s), radiologic studies, and as a result, I will discharge patient. Care significantly affected by the following chronic conditions: Hypertension. Counseling: I had a detailed discussion with the patient and/or guardian regarding the historical points, exam findings, and any diagnostic results supporting the discharge/admit diagnosis, lab results, radiology results, the need for outpatient follow up, for definitive care, to return to the emergency department if symptoms worsen or persist or if there are any questions or concerns that arise at home. 16:44 Special discussion: Based on the patient's Hx, exam, and Dx evaluation, there is no sb4 indication for emergent surgery or inpatient Tx. It is understood by the patient/guardian that if the Sx's persist or worsen they need to return immediately for re-evaluation. Based on the presenting symptoms and work-up in the emergency department, I discussed in detail the need to arrange with the PCP or specialist an outpatient procedure, esophagogastroduodenoscopy by the GI specialist, Based on the history and exam findings, there is no indication for further emergent testing or inpatient evaluation. I discussed with the patient/guardian the need to see the hotel registration clerk for further evaluation of the symptoms. 06/28 11:54 Order name: CBC with Diff; Complete Time: 12:45 sb4 06/28 11:54 Order name: CMP; Complete Time: 13:15 sb4 06/28 11:54 Order name: Lipase; Complete Time: 13:15 sb4 06/28 11:54 Order name: PT-INR; Complete Time: 12:57 sb4 06/28 11:54 Order name: Ptt, Activated; Complete Time: 12:57 sb4 06/28 12:53 Order name: CT Chest Abdomen W/ Contrast; Complete Time: 14:28 sb4 06/28 11:54 Order name: IV Saline Lock; Complete Time: 12:49 sb4 06/28 11:54 Order name: Labs collected and sent; Complete Time: 12:49 sb4 06/28 14:28 Order name: PO challenge; Complete Time: 15:54 sb4 Administered Medications: 12:30 Drug: Ondansetron IVP 4 mg IVP once; over 2 minutes Route: IVP; Site: right antecubital;bp 12:30 Drug: NS 0.9% IV 1000 ml IV at 1 bolus Per protocol; to be given as a bolus over 60 bp minutes Route: IV; Rate: 1 bolus; Site: right antecubital; 12:30 Drug: Pantoprazole IVP 40 mg IVP once Route: IVP; Site: right antecubital; bp Disposition Summary: 06/28/25 14:57 Discharge Ordered Notes: Location: Home sb4 Problem: new sb4 Symptoms: have improved sb4 Condition: Stable sb4 Diagnosis - Esophagitis, unspecified sb4 - Type 2 diabetes mellitus with hyperglycemia sb4 Followup: sb4 - With: Private Physician - When: As needed - Reason: Recheck today's complaints, Re-evaluation by your physician Discharge Instructions: - Discharge Summary Sheet sb4 - Esophagitis sb4 - Hematemesis sb4 Forms: - Work release form eb - Patient Portal Instructions sb4 - Leadership Thank You Letter sb4 Prescriptions: - ondansetron 4 mg Oral Tablet,disintegrating - take 1 tablet ORAL route every 6 hours as needed for nausea and vomiting; 10 sb4 tablet; Refills: 0, Product Selection Permitted - Protonix 40 mg Oral Tablet - take 1 tablet ORAL route once daily; 30 tablet; Refills: 0, Product Selection sb4 Permitted Signatures: Dispatcher [employer] EDMS Yohan Monroy, RN RN bp Aubree Laboy RN RN Valorie Méndez PA-C PA-C sb4 Corrections: (The following items were deleted from the chart) 11:55 11:55 CBC+H.LAB.BRZ ordered. EDMS EDMS 11:55 11:55 COMPREHENSIVE METABOLIC PANEL+C.LAB.BRZ ordered. EDMS EDMS 11:55 11:55 LIPASE+C.LAB.BRZ ordered. EDMS EDMS 11:55 11:55 PROTIME (+INR)+COAG.LAB.BRZ ordered. EDMS EDMS 11:55 11:55 PTT, ACTIVATED+COAG.LAB.BRZ ordered. EDMS EDMS
--- NOTE | 2025-06-28 14:58 | ER ---
Nurse's Notes [facility] Name: Joaquin Bustos II Age: 29 yrs Sex: Male : 1995 Arrival Date: 06/28/2025 Time: 11:03 Bed 13 Private MD: Diagnosis: Esophagitis, unspecified;Type 2 diabetes mellitus with hyperglycemia Presentation: 06/28 11:11 Chief complaint: Patient states: VOMITING X 2 TODAY. "SMALL AMOUNT OF BLOOD. STATES db RESTARTED METFORMIN 1 WEEK AGO. STATES SIMILAR EPISODE HAPPENED WHEN RESTARTED METFORMIN IN PAST. Coronavirus screen: Client denies travel out of the [place] in the last 14 days. At this time, the client does not indicate any symptoms associated with coronavirus-19. Ebola Screen: Patient negative for fever greater than or equal to 101.5 degrees Fahrenheit, and additional compatible Ebola Virus Disease symptoms Patient denies exposure to infectious person. Patient denies travel to an Ebola-affected area in the 21 days before illness onset. No symptoms or risks identified at this time. Initial Sepsis Screen: Does the patient meet any 2 criteria? No. Patient's initial sepsis screen is negative. Does the patient have a suspected source of infection? No. Patient's initial sepsis screen is negative. Risk Assessment: Do you want to hurt yourself or someone else? Patient reports no desire to harm self or others. Onset of symptoms was June 28, 2025. 11:11 Method Of Arrival: Ambulatory db 11:11 Acuity: KHADAR 3 db Triage Assessment: 11:13 General: Appears in no apparent distress. comfortable, Behavior is calm, cooperative. db Pain: Denies pain. Neuro: Level of Consciousness is awake, alert, obeys commands, Oriented to person, place, time, situation. Respiratory: Airway is patent Respiratory effort is even, unlabored, Respiratory pattern is regular, symmetrical. GI: Abdomen is non-distended, Reports BLOOD IN VOMIT. Historical: - Allergies: 11:13 Cinnamon; db - PMHx: 11:13 Bipolar disorder; diabetes mellitus; Anxiety; Schizophrenia; Pancreatitis; db - PSHx: 11:13 ear tubes; Cholecystectomy; L hand fingers SX; ear tuebes; db - Immunization history:: Adult Immunizations unknown. - Infectious Disease History:: Denies. - Social history:: Smoking status: Patient denies any tobacco usage or history of. Screenin:02 [facility] ED Fall Risk Assessment (Adult) History of falling in the last 3 months, hb including since admission No falls in past 3 months (0 pts) Confusion or Disorientation No (0 pts) Intoxicated or Sedated No (0 pts) Impaired Gait No (0 pts) Mobility Assist Device Used No (0 pt) Altered Elimination No (0 pt) Score/Fall Risk Level 0 - 2 = Low Risk Oriented to surroundings, Maintained a safe environment, Educated pt \\T\\ family on fall prevention, incl call for assistance when getting out of bed. Abuse screen: Denies threats or abuse. Denies injuries from another. Nutritional screening: No deficits noted. Tuberculosis screening: No symptoms or risk factors identified. Assessment: 13:02 General: Appears in no apparent distress. Behavior is calm, cooperative. Neuro: GCS 15. hb Cardiovascular: Patient's skin is warm and dry. Respiratory: Respiratory effort is even, unlabored, Respiratory pattern is regular, symmetrical. GI: Reports nausea, vomiting. : No signs and/or symptoms were reported regarding the genitourinary system. EENT: No deficits noted. No signs and/or symptoms were reported regarding the EENT system. Derm: Skin is pink, warm \\T\\ dry. 15:00 Reassessment: Patient appears in no apparent distress at this time. Patient and/or hb family updated on plan of care and expected duration. Pain level reassessed. Vital Signs: 11:11 BP 127 / 76; Pulse 98; Resp 16; Temp 97.6(O); Pulse Ox 97% ; Weight 82.55 kg; Height 5 db ft. 11 in. ; 13:03 BP 124 / 74; Pulse 88; Resp 16; Pulse Ox 99% ; hb 15:30 BP 128 / 78; Pulse 82; Resp 16; Pulse Ox 99% ; hb 11:11 Body Mass Index 25.38 (82.55 kg, 180.34 cm) db ED Course: 11:07 Patient arrived in ED. al6 11:13 Triage completed. db 11:13 Arm band placed on Patient placed in an exam room. db 11:15 Valorie Dunbar PA-C is PHCP. sb4 11:15 Wellington Rios MD is Attending Physician. sb4 12:02 Yohan Monroy, RN is Primary Nurse. bp 12:16 Initial lab(s) drawn, by me, sent to lab. Inserted saline lock: 20 gauge in right bp antecubital area, using aseptic technique. Blood collected. Flushed with 10 mL NS. 13:02 Patient has correct armband on for positive identification. Call light in reach. Side hb rails up X 1. Provided Education on: .. 13:51 CT Chest Abdomen W/ Contrast In Process Unspecified. EDMS 15:30 No provider procedures requiring assistance completed. hb 16:12 IV discontinued, intact, bleeding controlled, No redness/swelling at site. Pressure hb dressing applied. Administered Medications: 12:30 Drug: Ondansetron IVP 4 mg IVP once; over 2 minutes Route: IVP; Site: right antecubital;bp 12:30 Drug: NS 0.9% IV 1000 ml IV at 1 bolus Per protocol; to be given as a bolus over 60 bp minutes Route: IV; Rate: 1 bolus; Site: right antecubital; 12:30 Drug: Pantoprazole IVP 40 mg IVP once Route: IVP; Site: right antecubital; bp Medication: 13:02 VIS not applicable for this client. hb Outcome: 14:57 Discharge ordered by . chip4 16:12 Discharged to home ambulatory, hb 16:19 Condition: stable hb 16:19 Discharge instructions given to patient, Instructed on discharge instructions, follow up and referral plans. medication usage, Demonstrated understanding of instructions, follow-up care, medications, Prescriptions given X 2, 16:20 Patient left the ED. hb Signatures: Dispatcher [employer] EDAR Zohra Mcdaniel RN RN hb Peltier, Brian, RN RN bp Benton, Danielle RN Valorie Villafuerte, PA-Jania PA-C sbSana Syed
[2025-06-28 16:47] VITALS: TEMP 97.6
[2025-06-28 16:48] VITALS: O2SAT 99
[2025-06-28 16:49] VITALS: BP 128/78
== END 2025-06-28 16:20 | disposition home or self-care (01) ==
LOC: ER 11:03
DX: K20.90 Esophagitis, unspecified without bleeding (principal); E11.65 Type 2 diabetes mellitus with hyperglycemia
CPT/HCPCS: 85025; 36415; 85610; 85730; 83690; 80053; 74160; 71260; 96375; 96374; 99284; J2470; J2405; J7030

== ENCOUNTER 2025-07-05 19:49 | Emergency (ER) | payer OTHER ==
--- NOTE | 2025-07-05 20:37 | EDPHYS ---
Physician Documentation [facility] Name: Joaquin Bustos II Age: 29 yrs Sex: Male : 1995 Arrival Date: 07/05/2025 Time: 19:49 Bed 12 Private MD: LEÓN Physician Neto Smith HPI: 07/05 20:00 This 29 yrs old Male presents to ER via Ambulatory with complaints of Ear Pain.cp 20:00 The patient presents with pain, that is acute. The complaints affect the left ear. cp Onset: The symptoms/episode began/occurred yesterday, and became worse today. Associated signs and symptoms: Pertinent negatives: cough, fever, sinus trouble, sore throat, vomiting. Severity of symptoms: in the emergency department the symptoms have improved after taking OTC Tylenol today. Historical: - Allergies: 20:01 Cinnamon; dd2 - PMHx: 20:01 Anxiety; Bipolar disorder; diabetes mellitus; Pancreatitis; Schizophrenia; dd2 - PSHx: 20:01 Cholecystectomy; ear tubes; ear tuebes; L hand fingers SX; dd2 - Immunization history:: Adult Immunizations up to date. - Infectious Disease History:: Denies. - Social history:: Smoking status: Patient denies any tobacco usage or history of. ROS: 20:05 Constitutional: Negative for body aches, chills, fever, poor PO intake, cp 20:05 Eyes: Negative for injury, pain, redness, and discharge, cp 20:05 ENT: Positive for ear pain, Negative for drainage from ear(s), sinus congestion, sore throat, difficulty swallowing, difficulty handling secretions, 20:05 Respiratory: Negative for cough, shortness of breath, wheezing, 20:05 Abdomen/GI: Negative for abdominal pain, vomiting, diarrhea, constipation, 20:05 Skin: Negative for rash, 20:05 Neuro: Negative for altered mental status, headache, 20:05 All other systems are negative, Exam: 20:10 Constitutional: The patient appears in no acute distress, alert, awake, non-toxic, well cp developed, well nourished, 20:10 Head/Face: Normocephalic, atraumatic. cp 20:10 Eyes: Periorbital structures: appear normal, Conjunctiva: normal, no exudate, no cp injection, Sclera: no appreciated abnormality, Lids and lashes: appear normal, bilaterally, 20:10 ENT: External ear(s): are unremarkable, Ear canal(s): are normal, clear, TM's: erythema, that is moderate, bilaterally, Nose: is normal, Mouth: Lips: moist, Oral mucosa: moist, Posterior pharynx: Airway: no evidence of obstruction, patent, erythema, is not appreciated, exudate, is not appreciated, 20:10 Neck: ROM/movement: limited range of motion, is not appreciated, Meningeal signs: are not present, 20:10 Chest/axilla: Inspection: normal, 20:10 Cardiovascular: Rate: normal, Rhythm: regular, 20:10 Respiratory: the patient does not display signs of respiratory distress, Respirations: normal, no use of accessory muscles, no retractions, labored breathing, is not present, Breath sounds: are clear throughout, no decreased breath sounds, 20:10 Abdomen/GI: Exam negative for discomfort, distension, guarding, Inspection: abdomen appears normal, Vital Signs: 19:58 BP 130 / 95; Pulse 81; Resp 16; Temp 98.3; Pulse Ox 98% on R/A; Weight 84.5 kg; Height dd2 5 ft. 11 in. ; Pain 7/10; 20:44 BP 123 / 81; Pulse 79; Resp 19; Temp 97.6(O); Pulse Ox 100% on R/A; Weight 84.5 kg; tb4 Height 5 ft. 11 in. ; Pain 7/10; 20:44 Body Mass Index 25.98 (84.50 kg, 180.34 cm) tb4 19:58 Pain Scale: Adult dd2 20:44 Pain Scale: Adult tb4 MDM: 19:56 Medical Screening Exam initiated cp Administered Medications: 20:44 Drug: Amoxicillin-Clavulanate PO 875 mg PO once Route: PO; tb4 20:53 Follow up: Response: No adverse reaction tb4 Disposition Summary: 07/05/25 20:36 Discharge Ordered Notes: Location: Home cp Problem: new cp Symptoms: have improved cp Condition: Stable cp Diagnosis - Otitis media in diseases classified elsewhere, bilateral cp Followup: cp - With: Private Physician - When: 2 - 3 days - Reason: Worsening of condition Discharge Instructions: - Discharge Summary Sheet cp - Otitis Media, Adult cp Forms: - Medication Reconciliation Form cp - Antibiotic Education cp - Prescription Opioid Use cp - Patient Portal Instructions cp - Leadership Thank You Letter cp Prescriptions: - Augmentin 875-125 mg Oral Tablet - take 1 tablet ORAL route every 12 hours for 10 days; 20 tablet; Refills: 0, cp Product Selection Permitted - Ibuprofen 800 mg Oral Tablet - take 1 tablet ORAL route every 8 hours As needed take with food; 30 tablet; cp Refills: 0, Product Selection Permitted Addendum: 07/09/2025 09:09 Co-signature as Attending Physician, Neto WILLIAMSON reviewed the patient's care t t7 provided by the Advanced Practice Provider and agree with the diagnosis and treatment plan. Signatures: Wellington Garcia PA-C PA-C cp DAVIS, DIANA RN RN dd2 Crsitiana Dunbar RN RN tb4 Neto Smith DO DO tt7
--- NOTE | 2025-07-05 20:37 | ER ---
Nurse's Notes [facility] Name: Joaquin Bustos II Age: 29 yrs Sex: Male : 1995 Arrival Date: 07/05/2025 Time: 19:49 Bed 12 Private MD: Diagnosis: Otitis media in diseases classified elsewhere, bilateral Presentation: 07/05 19:58 Chief complaint: Patient states: LT EAR PAIN AND FEELS LIKE IT IS 'CLOGGED". BEGAN AT dd2 12:45 PM. Coronavirus screen: At this time, the client does not indicate any symptoms associated with coronavirus-19. Ebola Screen: No symptoms or risks identified at this time. Initial Sepsis Screen: Does the patient meet any 2 criteria? No. Patient's initial sepsis screen is negative. Does the patient have a suspected source of infection? No. Patient's initial sepsis screen is negative. Risk Assessment: Do you want to hurt yourself or someone else? Patient reports no desire to harm self or others. Onset of symptoms was July 05, 2025 at 12:45. 19:58 Method Of Arrival: Ambulatory dd2 19:58 Acuity: KHADAR 4 dd2 Triage Assessment: 20:01 General: Appears in no apparent distress. uncomfortable, well nourished, Behavior is dd2 calm, cooperative, appropriate for age. Pain: Complains of pain in left ear Pain currently is 7 out of 10 on a pain scale. EENT: Reports pain in left ear Pain is 7 out of 10 on a pain scale. Historical: - Allergies: 20:01 Cinnamon; dd2 - PMHx: 20:01 Anxiety; Bipolar disorder; diabetes mellitus; Pancreatitis; Schizophrenia; dd2 - PSHx: 20:01 Cholecystectomy; ear tubes; ear tuebes; L hand fingers SX; dd2 - Immunization history:: Adult Immunizations up to date. - Infectious Disease History:: Denies. - Social history:: Smoking status: Patient denies any tobacco usage or history of. Screenin:44 [facility] ED Fall Risk Assessment (Adult) History of falling in the last 3 months, tb4 including since admission No falls in past 3 months (0 pts) Confusion or Disorientation No (0 pts) Intoxicated or Sedated No (0 pts) Impaired Gait No (0 pts) Mobility Assist Device Used No (0 pt) Altered Elimination No (0 pt) Score/Fall Risk Level 0 - 2 = Low Risk Maintained a safe environment. Abuse screen: Denies threats or abuse. Denies injuries from another. Nutritional screening: No deficits noted. Tuberculosis screening: No symptoms or risk factors identified. Assessment: 20:44 General: Appears in no apparent distress. Behavior is calm, cooperative. Pain: tb4 Complains of pain in left ear Pain does not radiate. Pain currently is 7 out of 10 on a pain scale. Quality of pain is described as pressure, Pain began at 1245pm Is continuous, Alleviated by medications. Neuro: Level of Consciousness is awake, alert, obeys commands, Oriented to person, place, time, situation, Moves all extremities. Full function Gait is steady, Speech is normal, Facial symmetry appears normal. Cardiovascular: No deficits noted. Respiratory: No deficits noted. Airway is patent Respiratory effort is even, unlabored, Respiratory pattern is regular, symmetrical. GI: No deficits noted. No signs and/or symptoms were reported involving the gastrointestinal system. : No deficits noted. No signs and/or symptoms were reported regarding the genitourinary system. EENT: Ear canal Provider examined . Derm: No deficits noted. No signs and/or symptoms reported regarding the dermatologic system. Skin is intact, is healthy with good turgor, Skin is normal, Skin temperature is cool. Musculoskeletal: No signs and/or symptoms reported regarding the musculoskeletal system. Circulation, motion, and sensation intact. Range of motion: intact in all extremities. Vital Signs: 19:58 BP 130 / 95; Pulse 81; Resp 16; Temp 98.3; Pulse Ox 98% on R/A; Weight 84.5 kg; Height dd2 5 ft. 11 in. ; Pain 7/10; 20:44 BP 123 / 81; Pulse 79; Resp 19; Temp 97.6(O); Pulse Ox 100% on R/A; Weight 84.5 kg; tb4 Height 5 ft. 11 in. ; Pain 7/10; 20:44 Body Mass Index 25.98 (84.50 kg, 180.34 cm) tb4 19:58 Pain Scale: Adult dd2 20:44 Pain Scale: Adult tb4 ED Course: 19:53 Patient arrived in ED. gm2 19:56 Wellington Garcia PA-C is PHCP. cp 19:56 Neto Smith DO is Attending Physician. cp 20:01 Triage completed. dd2 20:01 Arm band placed on right wrist. dd2 20:44 Patient has correct armband on for positive identification. Bed in low position. Call tb4 light in reach. Client placed on continuous cardiac and pulse oximetry monitoring. NIBP monitoring applied. Door closed. 20:44 No provider procedures requiring assistance completed. Patient did not have IV access tb4 during this emergency room visit. 20:54 Provided Education on: Take medications as prescribed . tb4 Administered Medications: 20:44 Drug: Amoxicillin-Clavulanate PO 875 mg PO once Route: PO; tb4 20:53 Follow up: Response: No adverse reaction tb4 Medication: 20:44 VIS not applicable for this client. tb4 Outcome: 20:36 Discharge ordered by MD. cp 20:53 Discharged to home ambulatory, tb4 20:53 Condition: stable 20:53 Discharge instructions given to patient, Instructed on discharge instructions, follow up and referral plans. Demonstrated understanding of instructions, follow-up care, medications, Prescriptions given X 2, 20:55 Patient left the ED. tb4 Signatures: Wellington Garcia PA-C PA-C Radha Dykes gm2 MARIAH TURNER RN RN dd2 Cristiana Dunbar, RN RN tb4
[2025-07-05] MEDS ORDERED: AMOX/K CLAV 875 MG TAB ONE (20:41)
[2025-07-05 21:46] VITALS: BP 123/81; TEMP 97.6; O2SAT 100
== END 2025-07-05 20:55 | disposition home or self-care (01) ==
LOC: ER 19:49
DX: H66.93 Otitis media, unspecified, bilateral (principal)
CPT/HCPCS: 99284